=== PATIENT | female | born 1965 | race Caucasian/White ===

== ENCOUNTER 2020-06-20 10:19 | Emergency (ER) | payer OTHER, SELFPAY ==
--- NOTE | 2020-06-20 10:31 | ED.EXTPRO ---
HPI - Extremity Problem General Chief complaint: Extremity Injury, Lower Stated complaint: KNEE INJURY Time Seen by Provider: 06/20/20 10:31 Source: patient Mode of arrival: ambulatory Limitations: no limitations History of Present Illness HPI Narrative: 55 y/o female presents with left knee pain after she twisted it while walking yesterday. She had immediate pain and has only been able to walk with a limp. She woke up with some swelling this morning. Pain is not better with Aleve. She denies history of similar problems. MD Complaint: extremity pain and extremity swelling Onset (ago): day(s) (1) Pain Consistency: constant Location: left Severity scale (1-10): 7 Quality: aching and constant Radiation: none Relieving factors: immobilization Exacerbating factors: range of motion, weight bearing, walking and palpation Associated symptoms: denies other symptoms Related Data Previous Rx's Medication Instructions Recorded hydrocodone-acetaminophen [[place]] 1 tab PO Q8H PRN #6 tab 06/20/20 ibuprofen 600 mg PO Q8H PRN #20 tab 06/20/20 Allergies Allergy/AdvReac Type Severity Reaction Status Date / Time No Known Allergies Allergy Verified 06/20/20 10:51 Review of Systems Review of Systems: Constitutional: No Fever, No Chills Cardiovascular: No Chest Pain, No SOB Respiratory: No Cough, No Sputum Gastrointestinal: No Nausea, No Vomiting, No Diarrhea, No abdominal Pain Musculoskeletal: + joint pain, No Myalgias Skin: No Skin Lesions, No rash Neuro: No Weakness, No Numbness, No Dizziness, No Headache PMFSH Past Medical History Attestation statement: The following information was validated with the patient. Medical History No known health problems Social History Social History Advance Directives: No Advance Directives Information Provided: No Physical Exam Vital Signs: Vital Signs: Last Vital Signs Temp 97.4 F 06/20/20 10:48 Pulse 90 06/20/20 10:48 Resp 17 06/20/20 10:48 BP 190/79 H 06/20/20 10:48 Pulse Ox 95 06/20/20 10:48 Body Mass Index 29.2 Appearance: Alert. Oriented X3. No acute distress. HEENT: normal inspection CVS: Normal heart rate and rhythm. Pulses normal. Respiratory: No respiratory distress. Skin: Skin warm and dry. Normal skin color. Normal skin turgor. No rashes. Extremities: normal right knee. left knee with suprapatellar swelling and tenderness, limited flexion due to pain, no joint laxity. NV intact distally. Neuro: Oriented X 3. No motor deficit. No sensory deficit. Course Course Course Narrative: 55 y/o female here with left knee pain after twisting injury. Concern for ligamentous injury, XR shows possible small effusion. Will place in EVELIA wrap, WBAT, NSAID, short coarse of pain meds and refer to ortho. Shari agrees with plan. Critical Care Time Critical Care Time Critical Care Time: No Discharge Plan Discharge Clinical Impression: Effusion of knee joint, left Knee sprain Qualifiers: Encounter type: initial encounter Involved ligament of knee: unspecified ligament Laterality: left Qualified Code(s): S83.92XA - Sprain of unspecified site of left knee, initial encounter Patient Disposition: Home, Self-Care Instructions: Knee Sprain (ED), Swollen Knee Joint (ED) Additional Instructions: Your knee x-ray today did not show any fracutres or bony abnormalities. There is a small amount of fluid in the knee. Use EVELIA wrap for compression to help with the swelling. Elevate you leg when possible. Use ice several times per day. You may bear weight as tolerated. Recommend follow up with Orthopedics next week for further evaluation. Prescriptions: New ibuprofen 600 mg tablet 600 mg PO Q8H PRN (Reason: pain) Qty: 20 RF: 0 hydrocodone-acetaminophen [[place]] 5-325 mg tablet 1 tab PO Q8H PRN (Reason: pain) Qty: 6 RF: 0
[2020-06-20 10:48] VITALS: BP 190/79; PULSE 90; RESP 17; TEMP 36.3; O2SAT 95; BMI 29.2
--- NOTE | 2020-06-20 10:55 | XR_ITS ---
EXAMINATION: XR KNEE, LEFT CLINICAL INFORMATION: Pain after twisting injury. COMPARISON: No direct priors. Correlation made with contralateral right knee radiographs from 11/18/2013. TECHNIQUE: Four views of the left knee. FINDINGS: There is no evidence of acute fracture. Alignment is anatomic. Joint spaces are relatively well maintained. Mild osteophytosis noted in the patella. There may be a small joint effusion. No focal soft tissue swelling is appreciated. There are venous varicosities within the leg. XR/XR knee LT 4V IMPRESSION: No evidence of acute fracture or malalignment. Possible small joint effusion.
[2020-06-20 12:15] VITALS: BP 160/91
== END 2020-06-20 12:16 | disposition home or self-care (01) ==
PROVIDERS: Emergency Provider Internal Medicine
DX: S83.92XA Sprain of unspecified site of left knee, initial encounter (principal); M25.562 Pain in left knee; M25.462 Effusion, left knee; X50.1XXA Overexertion from prolonged static or awkward postures, initial encounter; Y93.01 Activity, walking, marching and hiking; Y92.9 Unspecified place or not applicable; Y99.9 Unspecified external cause status; Z79.899 Other long term (current) drug therapy
CPT/HCPCS: 73564; 99283

== ENCOUNTER → 2020-08-06 09:19 | Outpatient (BNVA) | payer MEDICAID, SELFPAY | PROVIDERS: Visit Provider Physician Assistant | DX: M17.10 Unilateral primary osteoarthritis, unspecified knee (principal) | CPT/HCPCS: 99202 ==

== ENCOUNTER 2020-12-07 10:05 | Outpatient (REF) | payer MEDICAID, SELFPAY ==
--- NOTE | ~2020-12-07 | MR_ITS ---
EXAMINATION: MR KNEE WITHOUT CONTRAST, LEFT CLINICAL INFORMATION: Left knee pain. COMPARISON: Radiographs 06/20/2020. TECHNIQUE: MRI of the knee without contrast was performed using routine sequences on a high-field scanner. FINDINGS: MENISCI: Medial Meniscus: Complex tearing of the meniscal body with probable full-thickness radial component. Lateral Meniscus: Ill-defined degenerative tearing of the anterior horn extending from the meniscal root. Probable inner margin tear of the posterior horn near the meniscal root as well. LIGAMENTS: Cruciate: Mucoid degeneration of the ACL which is ill-defined distally, possibly chronic partial tearing. The posterior cruciate ligament appears intact. Collateral: Intact. EXTENSOR MECHANISM: Intact. ARTICULAR CARTILAGE/BONE: Patellofemoral Compartment: Cartilage thinning and irregularity with subchondral cysts of the lateral patellar facet. Cartilage irregularity extends along the median ridge of the patella, as well as the medial trochlea inferiorly. Small marginal osteophytes. Medial Compartment: Cartilage thinning and surface irregularity with areas of full-thickness loss involving the weightbearing femoral condyle and peripheral tibia. Small marginal osteophytes. Lateral Compartment: Small marginal osteophytes. JOINT FLUID AND BURSAE: Small joint effusion and Chin's cyst. There is a ganglion at the distal aspect of the tibiofibular joint. MR/MR knee LT wo con IMPRESSION: Complex tear of the medial meniscus body with a full-thickness radial component. Degeneration/ill-defined tearing at the root of the anterior horn of the lateral meniscus and small intermargin tear of the posterior horn. Mucoid degeneration of the ACL with ill-defined partial tearing distally. Moderate medial compartment and mild patellofemoral/lateral compartment osteoarthritis with a small joint effusion and Chin's cyst.
--- NOTE | ~2020-12-07 | MR_ITS ---
EXAMINATION: MR KNEE WITHOUT CONTRAST, RIGHT CLINICAL INFORMATION: Right knee pain. COMPARISON: Radiographs 11/18/2013 TECHNIQUE: MRI of the knee without contrast was performed using routine sequences on a high-field scanner. FINDINGS: MENISCI: Medial Meniscus: Chronic tearing and attritional wear of the posterior horn and irregular inner margin/undersurface tearing of the meniscal body. Lateral Meniscus: Chronic ill-defined complex tearing of the anterior horn at the meniscal root. LIGAMENTS: Cruciate: Mucoid degeneration and probable ill-defined chronic partial tearing of the ACL. The posterior cruciate ligament appears intact. Collateral: Intact EXTENSOR MECHANISM: Intact. ARTICULAR CARTILAGE/BONE: Patellofemoral Compartment: Cartilage thinning and surface irregularity throughout the superior aspect of the patella with small marginal osteophytes. Medial Compartment: Full-thickness cartilage loss throughout much of the anterior weightbearing medial femoral condyle and the anteromedial aspect of the tibia with prominent marginal osteophytes. Lateral Compartment: Mild cartilage irregularity along the weightbearing aspect, and the posterior nonweightbearing femoral condyle. Small marginal osteophytes. JOINT FLUID AND BURSAE: Small joint effusion and Chin's cyst. MR/MR knee RT wo con IMPRESSION: Chronic tearing and attritional wear of the posterior horn of the medial meniscus with inner margin truncation/irregularity and undersurface tearing of the meniscal body. Chronic ill-defined complex tearing at the anterior horn of the lateral meniscus. Mucoid degeneration and chronic partial tearing of the ACL distally. Severe medial compartment and [id number] patellofemoral/lateral compartment osteoarthritis. Small joint effusion and Chin's cyst.
== END 2020-12-07 10:06 | disposition home or self-care (01) ==
LOC: HO.MRI 10:05
PROVIDERS: Visit Provider Registered Nurse
DX: M25.561 Pain in right knee (principal); M25.562 Pain in left knee
CPT/HCPCS: 73721

== ENCOUNTER 2021-03-08 16:20 | Outpatient (REF) | payer MEDICAID, SELFPAY ==
--- NOTE | ~2021-03-08 | MM_ITS ---
EXAMINATION: MM SCREENING DIGITAL BREAST TOMOSYNTHESIS, BILATERAL CLINICAL INFORMATION: Screening. Asymptomatic. Age 55. No prior breast imaging. Family history breast cancer, sister. The lifetime risk of breast cancer based on the Tyrer-Cuzick Model is 11%. COMPARISON: None (current study represents initial baseline exam). TECHNIQUE: Digital breast tomosynthesis is performed in both the craniocaudal and mediolateral oblique views along with computer-aided detection (CAD). Synthesized 2D images are generated from the tomosynthesis. FINDINGS: There are scattered areas of fibroglandular density (ACR BI-RADS breast composition Category b). There is no significant mass or architectural abnormality. No abnormal calcifications. The axillary nodes are unremarkable. The skin contours are smooth. MM/MM tomosynthesis screening BI IMPRESSION: No mammographic evidence of malignancy. ASSESSMENT: BI-RADS 1: Negative RECOMMENDATION: Routine annual mammography screening. This patient's information was entered into a reminder system with a target due date for their next mammogram.
== END 2021-03-08 16:21 | disposition home or self-care (01) ==
LOC: HO.MAMMO 16:20
PROVIDERS: PCP Registered Nurse; Visit Provider Registered Nurse
DX: Z12.31 Encounter for screening mammogram for malignant neoplasm of breast (principal)
CPT/HCPCS: 77063; 77067

== ENCOUNTER 2021-03-25 17:00 | Outpatient (RCR) | payer MEDICAID, SELFPAY ==
--- NOTE | 2021-03-25 17:39 | MHC.PT.DC ---
[facility] [place] [facility] [place] Office [place] Office [address] Rosalia Oliver [address] [facility] [phone] F: [phone] F: [phone] F: [phone] F: [phone] Physical Therapy Discharge Report Diagnosis: EVE KNEE OA Date of Surgery: Date of Evaluation: 02/17/21 Date of Discharge: 03/25/21 Treatments to Date: 5 Cancellations to Date: 0 No Shows to Date: 0 Discharge Status: Improved Function Independent with HEP Discharge Summary: The patient has been consistently reporting no pain and less frequent clicking of the knees. She is independent with her home exercise program including bilateral lower extremity strengthening and stretching. She is discharged from this physical therapy plan of care. Electronically signed by: Kayleigh Vazquez PT, DPT Please sign and return to therapist. Thank you for your referral.
== END 2021-03-25 17:42 | disposition home or self-care (01) ==
LOC: HO.PT 17:00
PROVIDERS: PCP Registered Nurse; Visit Provider Physician Assistant
DX: M17.0 Bilateral primary osteoarthritis of knee (principal)
CPT/HCPCS: 97110; 97150; 97162

== ENCOUNTER 2021-09-01 12:25 | Emergency (ER) | payer MEDICAID, SELFPAY ==
--- NOTE | ~2021-09-01 | XR_ITS ---
EXAMINATION: XR LUMBOSACRAL SPINE CLINICAL INFORMATION: Low back pain. No injury. COMPARISON: None TECHNIQUE: Three views of the lumbosacral spine. FINDINGS: There are 5 nonrib bearing lumbar vertebra. No acute fracture, spondylolisthesis, or spondylolysis is identified. Disc spaces are maintained. Pedicles appear intact. No significant sacroiliac joint abnormality is seen. XR/XR lumbar spine 2-3V IMPRESSION: No significant lumbar spine abnormality appreciated.
[2021-09-01 12:31] VITALS: BP 169/89; PULSE 100; RESP 19; TEMP 36.6; O2SAT 98; BMI 28.3
--- NOTE | 2021-09-01 16:07 | ED.BACK ---
HPI - Back Pain/Injury General Chief Complaint: Back Pain/Injury Stated Complaint: back pain Time Seen by Provider: 09/01/21 15:55 Source: patient Mode of arrival: ambulatory Limitations: no limitations History of Present Illness HPI Narrative: 56 yo female healthy here here with reports of low back pain for the last 3-4 days. Patient denies any injury or trauma. 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 Today while working she felt pain that was severe enough that required her to leave her job in come here to the emergency department. There is no radiation of pain. No numbness or tingling in the extremities. No bowel or bladder incontinence. No numbness or tingling of the extremities. No fevers or chills. Patient taking Motrin with continued pain Related Data Home Medications Medication Instructions Recorded Confirmed ascorbic acid (vitamin C) PO 08/06/20 Previous Rx's Medication Instructions Recorded cyclobenzaprine 10 mg tablet 10 mg PO TID PRN #10 tab 09/01/21 lidocaine 5 % topical patch 1 patch TOPICAL DAILY #15 ea 09/01/21 (Lidoderm) naproxen 500 mg tablet 500 mg PO BID PRN #20 tab 09/01/21 Allergies Allergy/AdvReac Type Severity Reaction Status Date / Time No Known Allergies Allergy Verified 06/20/20 10:51 Review of Systems Review of Systems: Yes all other systems are reviewed and are negative Constitutional: Constitutional: Reports no additional constitutional complaints, Denies body ache(s), Denies chills, Denies fever(s), Denies headache(s) and Denies weakness Eyes: Eyes: Reports no additional eye complaints and Denies change in vision ENT: Reports system reviewed and no additional complaints, except as documented, Denies dizziness, Denies headache(s), Denies nasal congestion, Denies nasal discharge and Denies neck pain Cardiovascular: Cardiovascular: Reports no additional cardiovascular complaints, Denies chest pain, Denies leg edema and Denies dyspnea Respiratory: Respiratory: Reports no additional respiratory complaints, Denies cough and Denies dyspnea Gastrointestinal: Gastrointestinal: Reports no additional gastrointestinal complaints, Denies abdominal pain, Denies diarrhea, Denies nausea and Denies vomiting Genitourinary: Genitourinary: Reports no additional female genitourinary complaints and Denies urinary incontinence Musculoskeletal: Musculoskeletal: Reports no additional musculoskeletal complaints, Reports back pain, Denies arthralgias, Denies joint swelling, Denies neck pain, Denies numbness and Denies tingling Integumentary/Breasts: Skin/Breast: Reports system reviewed and no additional complaints, except as docu and Denies rash Neurologic: Reports system reviewed and no additional complaints, except as documented, Denies Abnormal speech present, Denies dizziness, Denies headache(s), Denies numbness, Denies tingling and Denies weakness PMFSH Past Medical History Attestation statement: The following information was validated with the patient. Source: old records reviewed and nursing notes reviewed Medical History No known health problems Social History Social History Years Smoked: quit smokinig about a year ago, smoked whole life Advance Directives: No Advance Directives Information Provided: No Patient : No Current occupational status: employed Current occupation: Retail - Right handed Physical Exam Vital Signs: Vital Signs: Last Vital Signs Temp 98 F 09/01/21 12:31 Pulse 100 09/01/21 12:31 Resp 19 09/01/21 12:31 BP 169/89 H 09/01/21 12:31 Pulse Ox 98 09/01/21 12:31 BMI result Body Mass Index 28.3 Const: General: cooperative, healthy appearing, comfortable and no acute distress Orientation/consciousness: patient oriented x3 Limitations: no limitations HENMT: Head: Yes normal to inspection Ears: hearing grossly normal bilaterally General nose exam: Normal external nose present Face and sinus: Yes normal facial exam Mouth: Normal oral and palatal mucosa present Throat: Yes posterior oropharynx normal Eyes: General: appearance normal, both eyes and all related structures Pupils: Equal, round and reactive pupils present Neck: Neck: Yes normal visual inspection Chest: Chest palpation & inspection: normal inspection of the chest Resp: Effort & Inspection: normal respiratory effort Auscultation: clear to auscultation bilaterally Cardio: Rate: regular rate Rhythm: regular rhythm Peripheral pulses: Peripheral pulses 2+ throughout GI: Inspection: Yes normal to inspection Palpation (GI): Soft to palpation and nontender Auscultation: normal bowel sounds Back/Spine/Pelvis: Other: Lumbar midline tenderness with no step-offs or deformities. Pain is worsened with straight leg raise bilaterally Thoracic/Lumbar Spine: thoracic and lumbar spine normal to inspection Skin: General skin exam: no rashes or lesions noted Neuro: General: patient oriented x3, no focal motor deficits and normal sensation to monofilament Cranial nerves: Yes CN's II-XII intact bilaterally, Yes Equal, round and reactive pupils present, Yes Bilaterally intact EOM present, Yes Nystagmus not present, Yes Normal facial strength present and Yes Midline tongue present Cognition (Neuro): normal cognition Speech: No Abnormal speech present Gait exam (Neuro): Normal gait present Motor exam (neuro): 5/5 motor strength present throughout Sensory Exam: Normal double simultaneous stimulation for sensation Deep tendon reflexes (DTR's): Right patellar reflex intensity grade: 2+ and Left patellar reflex intensity grade: 2+ Extrem: General: Yes normal to inspection Course Course Course Narrative: 56-year-old female here with reports of 3 days of low back pain with no known injury or trauma. No neurological deficits or red flag symptoms. Patient does have midline lumbar tenderness so will check x-rays. Will also provide analgesia and reassess 1630-x-ray show no bony abnormality. Likely lumbar strain. Will discharge patient with NSAIDs, muscle relaxant and medicated patch. We discussed avoiding any heavy lifting or bending and a follow-up with her primary care doctor in 1 week for persistent symptoms. We also reviewed worrisome signs and symptoms of when to return to the emergency department. Comfortable discharge home. MDM - Back Pain/Injury MDM Narrative Medical decision making narrative: Less likely epidural abscess with no fever reported, no neurological deficits, no history of immunocompromise state or history of IV drug abuse. Less likely cauda equina with no reports of incontinence or saddle anesthesia Medical Records Attestation: I reviewed the patient's medical records. Lab Data Attestation: I reviewed the patient's lab results. Imaging Data lumbar x-ray: Attestation: I personally reviewed and interpreted this imaging study as follows: Radiologist's impression: FINDINGS: There are 5 nonrib bearing lumbar vertebra. No acute fracture, spondylolisthesis, or spondylolysis is identified. Disc spaces are maintained. Pedicles appear intact. No significant sacroiliac joint abnormality is seen. XR/XR lumbar spine 2-3V IMPRESSION: No significant lumbar spine abnormality appreciated. Discharge Plan Discharge Clinical Impression: Strain of lumbar region Patient Disposition: Home, Self-Care Instructions: Low Back Strain (ED), Lower Back Exercises (ED) Additional Instructions: Heat or ice Gentle stretching No heavy lifting or bending Follow-up with primary care doctor in 1 week for persistent symptoms Return for numbness in the groin, incontinence, fever Prescriptions: New naproxen 500 mg tablet 500 mg PO BID PRN (Reason: pain) Qty: 20 0RF cyclobenzaprine 10 mg tablet 10 mg PO TID PRN (Reason: muscle spasm) Qty: 10 0RF lidocaine [Lidoderm] 5 % adhesive patch,medicated 1 patch topical DAILY Qty: 15 0RF Rx Instructions: leave on most painful area for up to 12 hrs Referrals: Gracie Macias, CHIEF INFORMATION SECURITY OFFICER [Primary Care Provider] - 1 week (for persistent symptoms ) Stand Alone Forms: Work/School Release Interventions: ED Discharge Assessment Last Done: 09/01/21 16:46 Discharge Date/Time: 09/01/21 16:46
[2021-09-01] MEDS: Ketorolac Tromethamine 60 MG/2 ML VIAL IM (16:42)
== END 2021-09-01 16:46 | disposition home or self-care (01) ==
PROVIDERS: Emergency Provider Emergency Medicine; PCP Registered Nurse
DX: S39.012A Strain of muscle, fascia and tendon of lower back, initial encounter (principal); X50.1XXA Overexertion from prolonged static or awkward postures, initial encounter; Y93.89 Activity, other specified; Y92.9 Unspecified place or not applicable; Y99.9 Unspecified external cause status
CPT/HCPCS: 72100; 96372; 99284; J1885

== ENCOUNTER 2022-03-29 15:24 | Outpatient (REF) | payer MEDICAID, SELFPAY ==
--- NOTE | 2022-03-29 | PFT_ITS ---
FLOWS: FEV1 55% of predicted at 1.39 L. FVC 71% of predicted at 2.29 L. FEV1 to FVC ratio of 0.61. Positive bronchodilator response. LUNG VOLUMES: Total lung capacity 94% of predicted at 4.65 L. Residual volume 133% of predicted at 2.54 L. Slow vital capacity 70% of predicted at 2.10 L. Expiratory reserve volume 29% of predicted at 0.25 L. Diffusion capacity is normal. IMPRESSION: Moderate to severe obstructive ventilatory defect with positive bronchodilator response. Increased residual volume suggests air trapping. Decreased expiratory reserve volume suggests extrathoracic restriction likely secondary to abdominal obesity. MD ASHANTI [place]/MODL / [id number]
== END 2022-03-29 15:25 | disposition home or self-care (01) ==
LOC: HO.RESP 15:24
PROVIDERS: PCP Registered Nurse Community Health; Visit Provider Registered Nurse Community Health
DX: J45.20 Mild intermittent asthma, uncomplicated (principal)
CPT/HCPCS: 94060; 94727; 94729

== ENCOUNTER 2022-11-30 05:38 | Inpatient (IN) | payer MEDICAID, SELFPAY ==
[2022-11-30] VITALS (11 sets, daily range): BP systolic 104–135; BP diastolic 50–71; PULSE 85–136; RESP 16–27; TEMP 37.1–40.3; O2SAT 90–96; BMI 33.0
--- NOTE | ~2022-11-30 | CT_ITS ---
EXAMINATION: CT ABDOMEN AND PELVIS WITH CONTRAST CLINICAL INFORMATION: Abdominal pain. Nausea. Vomiting. COMPARISON: None available. TECHNIQUE: Multidetector volumetric images were obtained from the superior aspect of the liver through the pubic symphysis following administration 85 mL of Omnipaque 350 intravenous contrast. Sagittal and coronal reformatted images were obtained on the technologist's workstation. Oral contrast: No This CT examination was performed using dose optimization techniques as appropriate, variously including the following: *Automated exposure control *Adjustment of mA and/or kV according to patient size (this includes techniques or standardized protocols for targeted exams where dose is matched to indication/reason for exam; i.e. extremities or head) *Use of iterative reconstruction technique DLP: 556.00 mGy-cm FINDINGS: LUNG BASES: Mild respiratory motion artifacts are present at the lung bases. No significant abnormality is noted. No pleural or pericardial effusion. LIVER, GALLBLADDER, AND BILIARY TREE: The liver is normal in size, shape, and attenuation. No focal hepatic lesion or biliary ductal dilatation is present. The gallbladder is mildly contracted however otherwise unremarkable without evidence of radiopaque stones, wall thickening or obvious pericholecystic inflammatory changes. PANCREAS: No focal pancreatic mass. Small calcification noted in the pancreatic head (series 2 image 26), may represent vascular calcification. No peripancreatic stranding or fluid. No pancreatic ductal dilatation. SPLEEN: Unremarkable. ADRENAL GLANDS: Unremarkable. KIDNEYS AND URETERS: The kidneys are normal in size and shape. Question subtle finding of delayed left nephrogram with subtle left perinephric and periureteric stranding. No evidence of left hydronephrosis. Left ureter is a slightly prominent in size demonstrating mild peripheral fat stranding and mural enhancement. No radiopaque left ureteric calculi are seen. The right kidney is unremarkable in appearance except for a 0.7 cm low-attenuation in the mid kidney which is too small to characterize accurately however statistically likely represents a cyst. No evidence of radiopaque calculi in the right kidney and right ureter. No right hydroureteronephrosis or right perinephric or periureteric stranding. BLADDER: Underdistended and therefore not optimally evaluated. No radiopaque calculi are noted. GASTROINTESTINAL TRACT: No abnormal dilatation of the stomach or small bowel is noted. The colon is normal in caliber. No evidence of colonic wall thickening or pericolonic fat stranding. Appendix is normal. ABDOMINAL WALL: No significant hernia is appreciated. LYMPH NODES: No evidence of pathologically enlarged lymph nodes. VASCULAR: The aortoiliac vessels are normal in caliber. Scattered calcific atherosclerosis of the aortoiliac vessels. PELVIC VISCERA: Unremarkable. OSSEOUS STRUCTURES: No evidence of acute or suspicious osseous lesions. Changes of osteitis pubis are seen. Vacuum phenomenon is noted in the bilateral sacroiliac joints. Minimal lumbar spondylosis. CT/CT abdomen pelvis w IV con IMPRESSION: 1. Subtle finding of delayed left nephrogram with subtle left perinephric and periureteric stranding. Left ureter is slightly prominent in size with mild mural enhancement. No evidence of left hydronephrosis. No evidence of radiopaque urinary tract calculi. The findings are nonspecific, however, may be seen in the setting of urinary tract infection on recent passage of a calculus. Recommend clinical correlation and correlation with urinalysis. 2. No evidence of abnormal bowel dilatation or bowel obstruction. 3. Normal appendix. 4. A 0.7 cm low-attenuation right renal lesion is too small to characterize accurately however statistically likely represents a cyst. Fleischner guidelines were followed.
--- NOTE | ~2022-11-30 | XR_ITS ---
EXAMINATION: XR CHEST CLINICAL INFORMATION: Tachycardia COMPARISON: None available. TECHNIQUE: Frontal view of the chest was obtained. FINDINGS: The lungs appear hyperinflated suggesting underlying COPD. Questionable central peribronchial thickening. No focal consolidation is seen. No evidence of pneumothorax, pleural effusion, or pulmonary edema. The cardiomediastinal contour is unremarkable. No acute osseous findings are seen. XR/XR chest 1V IMPRESSION: Hyperinflated lungs suggesting COPD. Questionable central peribronchial thickening which may reflect airways disease.
--- NOTE | 2022-11-30 05:51 | ECG_ITS ---
Test Reason : SOB Blood Pressure : / mmHG Vent. Rate : 132 BPM Atrial Rate : 132 BPM P-R Int : 144 ms QRS Dur : 114 ms QT Int : 302 ms P-R-T Axes : 058 079 053 degrees QTc Int : 447 ms Sinus tachycardia Possible Left atrial enlargement Minimal voltage criteria for LVH, may be normal variant ( [place] product ) Borderline ECG No previous ECGs available Referred By: Generic ED Physician Electronically Signed By:HUNTER ARZOLA
[2022-11-30 06:09] LABS: Basophils Percent Auto 0.3 % (0-2); Eosinophils Percent Auto 0.2 % (0-4); Hematocrit 35.5 % (37.0-47.0); Hemoglobin 11.8 g/dl (12.0-16.0); Imm Gran Abs Auto 0.08 X10*3/uL (0.00-0.03); Imm Gran Pct Auto 0.6 % (0.0-0.4); Lymphocytes Absolute Auto 0.6 X10*3/uL (1.2-4.9); Lymphocytes Percent Auto 4.4 % (20-40); MANUAL DIFF FLAG SCAN; Mean Corpuscular HGB Conc 33.2 g/dl (31.0-35.0); Mean Corpuscular Hemoglobin 29.9 pg (27.0-33.0); Mean Corpuscular Volume 89.9 fL (80.0-98.0); Mean Platelet Volume 9.6 fL (9.4-12.3); Monocytes Absolute Auto 0.3 X10*3/uL (0.1-1.2); Monocytes Percent Auto 2.1 % (2-11); Neutrophils Absolute Auto 12.1 x10*3/uL (2.0-8.3); Neutrophils Percent Auto 92.4 % (45-73); Platelet Count 211 X10*3/uL (160-400); Red Blood Count 3.95 X10*6/uL (4.20-5.50); Red Cell Distribution Width 12.8 % (11.0-16.0); SCAN SMEAR FLAG 1; White Blood Count 13.1 X10*3/uL (4.8-10.8)
[2022-11-30] MEDS: 0.9 % Sodium Chloride 1,000 ML 999 ML IV (06:11)
--- NOTE | 2022-11-30 06:17 | PC.NURSE ---
dr miles made aware of rectal temp of 104.6. sepsis protocol initiated @ 0620. 2nd iv line placed. in R hand. bladder scan performed. 189ml present in bladder. clarita GAINES made aware
[2022-11-30 06:27] LABS: SLIDE REVIEW VERIFIED
[2022-11-30 06:28] LABS: B Type Natriuretic Peptide 14 pg/mL (<100)
[2022-11-30 06:31] LABS: Alanine Aminotransferase 22 U/L (0-31); Albumin Level 4.3 g/dL (3.5-5.0); Alkaline Phosphatase 100 U/L (39-117); Anion Gap 15 (12-20); Aspartate Amino Transferase 24 U/L (5-31); Bilirubin Direct 0.3 mg/dL (0.0-0.5); Bilirubin Total 0.9 mg/dL (0.0-1.0); Blood Urea Nitrogen 14 mg/dL (9-16); Calcium 9.6 mg/dL (8.4-10.2); Carbon Dioxide 29 mmol/L (22-29); Chloride 99 mmol/L (96-108); Creatinine Clr Calc Pharmacy 75.1; Estimated Glomerular Filt Rate > 60; Glucose Random 156 mg/dL (60-115); Lipase 88 U/L (8-78); Potassium 2.8 mmol/L (3.3-5.1); Sodium 140 mmol/L (135-145); Total Protein 7.8 g/dL (6.5-8.0); Troponin-I High Sensitivity 63.4 ng/L (<3.5-17.0)
[2022-11-30] MEDS: Piperacillin Sodium/Tazobactam 3.375 GM in 0.9 % Sodium Chloride 50 ML IV (06:31)
--- NOTE | 2022-11-30 06:31 | ED.GENADULT ---
HPI - General Adult General Chief complaint: Abdominal Pain Stated complaint: n/v/d Time Seen by Provider: 11/30/22 06:28 Source: patient and EMS Mode of arrival: EMS Limitations: no limitations History of Present Illness HPI narrative: Patient is a 57 year old assigned female at with a history of asthma and HTN presenting to the emergency department today with a fever, nausea, vomiting, increased urinary frequency and pain with urination. Patient states that over the last few days she has felt generally unwell with fevers, nausea, vomiting, increased urinary frequency and pain with urination. Patient states that she is short of breath at baseline and has no changes in that aspect. Patient denies any dizziness, lightheadedness, abdominal pain, chills, blurry vision, double vision, loss of vision, chest pain, difficulty breathing, shortness of breath, back pain, night sweats, increased urinary urgency, blood in her urine or stool, syncope or a near syncopal episode, recent trauma or falls, bowel incontinence, bladder incontinence, bowel retention, bladder retention, or any other complaints at this time. Onset (ago): day(s) Severity: mild Severity scale (1-10): 3 Relieving factors: none Exacerbating factors: none Associated symptoms: nausea/vomiting Treatments prior to arrival: none Related Data Home Medications Medication Instructions Recorded Confirmed ascorbic acid (vitamin C) PO 08/06/20 albuterol sulfate 90 mcg/actuation 2 puff inhalation Q8H PRN wheezing 11/30/22 aerosol inhaler (Ventolin HFA) amlodipine 10 mg tablet 10 mg PO QAM 11/30/22 chlorthalidone 25 mg tablet 12.5 mg PO QAM 11/30/22 tiotropium bromide 2.5 2 puff inhalation DAILY 11/30/22 11/30/22 mcg/actuation mist for inhalation (Spiriva Respimat) Previous Rx's Medication Instructions Recorded cyclobenzaprine 10 mg tablet 10 mg PO TID PRN muscle spasm #10 09/01/21 tabs lidocaine 5 % topical patch 1 patch topical DAILY #15 ea 09/01/21 (Lidoderm) naproxen 500 mg tablet 500 mg PO BID PRN pain #20 tabs 09/01/21 Allergies Allergy/AdvReac Type Severity Reaction Status Date / Time No Known Allergies Allergy Verified 06/20/20 10:51 Review of Systems Constitutional: Constitutional: Reports no additional constitutional complaints, Denies chills, Denies fever(s) and Denies night sweats Eyes: Eyes: Reports no additional eye complaints, Denies blurry vision, Denies change in vision, Denies diplopia, Denies eye discharge, Denies loss of vision and Denies eye pain ENT: Denies dizziness Cardiovascular: Cardiovascular: Reports no additional cardiovascular complaints, Denies chest pain, Denies lightheadedness, Denies Loss of Consciousness and Denies dyspnea Respiratory: Respiratory: Reports no additional respiratory complaints and Denies dyspnea Gastrointestinal: Gastrointestinal: Reports no additional gastrointestinal complaints, Denies abdominal pain, Denies melena, Denies hematochezia, Denies change in bowel habits, Denies change in stool character, Reports nausea and Reports vomiting Genitourinary: Genitourinary: Denies hematuria, Denies urinary frequency, Reports dysuria, Denies urinary incontinence, Denies urinary hesitancy and Denies urinary urgency Comments: increased urinary frequency Musculoskeletal: Musculoskeletal: Reports no additional musculoskeletal complaints, Denies numbness and Denies tingling Neurologic: Denies dizziness, Denies loss of vision, Denies numbness and Denies tingling Psychiatric: Psychiatric: Reports no additional psychiatric complaints Endocrine: Endocrine: Reports no additional endocrine complaints Hematologic/Lymphatic: Hematologic/Lymphatic: Reports no additional hematologic/lymphatic complaints Allergic/Immunologic: Allergic/Immunologic: Reports no additional allergic/immunologic complaints [facility] Past Medical History Attestation statement: The following information was validated with the patient. Source: old records reviewed and nursing notes reviewed Medical History No known health problems Social History Social History Alcohol intake: never Years Smoked: quit smokinig about a year ago, smoked whole life Smoked in Last 30 Days: No Advance Directives: No Advance Directives Information Provided: No Patient : No Current occupational status: employed Current occupation: Retail - Right handed Physical Exam ED Vital Signs: Vital Signs - 24 hr 11/30/22 05:43 11/30/22 06:17 11/30/22 07:22 Temperature 99.2 F 104.6 F H 99.2 F Pulse Rate 136 H 123 H 115 H Respiratory Rate 27 H 19 20 Blood Pressure 104/62 116/66 124/61 Pulse Oximetry 93 93 92 Oxygen Delivery Method Room Air Room Air Room Air 11/30/22 08:15 Temperature Pulse Rate 107 H Respiratory Rate 16 Blood Pressure Pulse Oximetry Oxygen Delivery Method BMI result Body Mass Index 33.0 Const General: cooperative, no acute distress, alert and awake Nutritional Appearance: well nourished Orientation/consciousness: patient oriented x3 Limitations: no limitations HENMT Head: Yes normal to inspection and Yes atraumatic Ears: hearing grossly normal bilaterally and external ears normal General nose exam: Normal external nose present, no nasal discharge noted and no epistaxis Face and sinus: Yes normal facial exam, No abrasion and No laceration Mouth: Normal oral and palatal mucosa present, no drooling and no muffled voice Eyes General: appearance normal, both eyes and all related structures Periorbital: periorbital findings normal Eyelids: Yes eyelids normal Conjunctivae: conjunctivae normal Pupils: Equal, round and reactive pupils present EOM: EOMs intact bilaterally Neck Neck: Yes normal visual inspection, Yes full ROM and Yes no lymphadenopathy Chest Chest palpation & inspection: normal inspection of the chest Resp Effort & Inspection: normal respiratory effort and able to speak in complete sentences Auscultation: wheezes scattered wheezes Cardio Rate: tachycardic Rhythm: regular rhythm GI Inspection: Yes normal to inspection Palpation (GI): Soft to palpation, not firm, nontender and no guarding General: Yes CVA tenderness bilateral Back/Spine/Pelvis Back: CVA tenderness Neuro General: patient oriented x3 and moves all extremities Cranial nerves: Yes Equal, round and reactive pupils present Cognition (Neuro): normal cognition Motor exam (neuro): 5/5 motor strength present throughout Sensory Exam: Normal double simultaneous stimulation for sensation Coordination: [id number] test normal Extrem General: Yes normal to inspection, Yes full ROM and Yes capillary refill normal Psych Appearance: grossly normal Mental Status: mental status grossly normal Affect: normal affect Attitude: cooperative Thought process: Normal thought process present Thought content: Normal thought content present Insight: Good insight present (Psych) Medications Administered Generic Name Dose Route Start Last Admin Trade Name Freq PRN Reason Stop Dose Admin Potassium Chloride 10 meq in 100 mls @ 100 mls/hr 11/30/22 08:45 11/30/22 08:38 Potassium Chloride/H20 IV 11/30/22 10:44 100 mls/hr Q1H TONY Administration Discontinued Medications Generic Name Dose Route Start Last Admin Trade Name Francine PRN Reason Stop Dose Admin Acetaminophen 975 mg 11/30/22 06:29 11/30/22 06:39 Acetaminophen 325 Mg Tablet PO 11/30/22 06:30 975 mg ONCE ONE Administration Albuterol Sulfate 2 puff 11/30/22 06:48 11/30/22 08:13 Albuterol Sulfate 90 Mcg 8 Gm Inhaler INHALE 11/30/22 06:49 2 puff ONCE ONE Administration Sodium Chloride 1,000 mls @ 999 mls/hr 11/30/22 05:52 11/30/22 06:11 Ns IV 11/30/22 06:52 999 mls/hr .Q1H1M ONE Administration Sodium Chloride 2,538 mls @ 2,538 mls/hr 11/30/22 06:19 11/30/22 06:25 Ns 30 ml/kg infuse over 1 hr (2538 ml) 11/30/22 07:18 2,538 mls/hr IV Administration .Q1H STA Piperacillin Sod/Tazobactam 50 mls @ 100 mls/hr 11/30/22 06:19 11/30/22 06:31 Sod 3.375 gm/ Sodium Chloride IV 11/30/22 06:48 100 mls/hr ONCE ONE Administration Iohexol 85 ml 11/30/22 07:37 11/30/22 07:37 Iohexol 350 Mg/Ml 100 Ml Infus..Btl IV 11/30/22 07:38 85 ml ONCE ONE Administration Potassium Chloride 20 meq 11/30/22 08:35 11/30/22 08:38 Potassium Chloride Packet 20 Meq Packet PO 11/30/22 08:36 20 meq ONCE ONE Administration Medical Decision Making Medical Decision Making [facility] Narrative: Patient is a 57 year old assigned female at with a history of asthma presenting to the emergency department today with nausea, vomiting, fever, and urinary symptoms. Patient's physical exam showed a febrile individual with tachycardia and CVA tenderness. Patient's blood work showed a decreased potassium, decreased magnesium, and elevated WBC count. Patient's initial trop was 63.4 with a repeat of 170. Spoke to cardiology who recommended medical admission and treatment of the infectious process as this seems to be a demand process. Patient's urine showed a probable infection. Patient's initial and repeat EKGs was unremarkable. Patient's chest x-ray showed no acute process. Patient's abdomen/pelvis CT showed evidence of pyelonephritis. I spoke to the hospitalist team who agreed to admission. I explained my physical exam findings as well as all test results to the patient and the patient's. I answered all questions asked by the patient. Patient received IV potassium, fluids, antibiotics, and PO potassium. Patient verbalized agreement and understanding with this treatment plan and admission. Differential Diagnosis Differential Diagnoses: The differential diagnosis associated with the presentation includes pyelonephritis, UTI Admission/Observation Consideration of admission/observation: Escalation of care including admission/observation considered Patient to be admitted for pyelonpehritis. Consult Healthcare Provider Management of the patient was discussed with: Hospitalist (agreed to admission) and Food Bagging Machine Operator (spoke to cardiology as noted in the MDM portion of this chart) Lab Data [facility] Lab Attestation statement: I reviewed the patient's lab results. 11/30/22 06:01 11/30/22 06:01 Labs: Lab Results 11/30/22 11/30/22 11/30/22 Range/Units 06:00 06:00 06:01 WBC 13.1 H (4.8-10.8) X10*3/uL RBC 3.95 L (4.20-5.50) X10*6/uL Hgb 11.8 L (12.0-16.0) g/dl Hct 35.5 L (37.0-47.0) % MCV 89.9 (80.0-98.0) fL MCH 29.9 (27.0-33.0) pg MCHC 33.2 (31.0-35.0) g/dl RDW 12.8 (11.0-16.0) % Plt Count 211 (160-400) X10*3/uL MPV 9.6 (9.4-12.3) fL Immature Gran % (Auto) 0.6 H (0.0-0.4) % Neut % (Auto) 92.4 H (45-73) % Lymph % (Auto) 4.4 L (20-40) % [place] % (Auto) 2.1 (2-11) % Eos % (Auto) 0.2 (0-4) % Baso % (Auto) 0.3 (0-2) % Lymph # (Auto) 0.6 L (1.2-4.9) X10*3/uL [place] # (Auto) 0.3 (0.1-1.2) X10*3/uL Eos # (Auto) 0.0 (0.0-0.4) X10*3/uL Baso # (Auto) 0.0 (0.0-0.2) X10*3/uL Abs Immat Gran (auto) 0.08 H (0.00-0.03) X10*3/uL Absolute Neuts (auto) 12.1 H (2.0-8.3) x10*3/uL Absolute Nucleated RBC 0.000 (0.0-0.012) X10*3/uL Nucleated RBC % (auto) 0.0 (0.0-0.2) /100WBC Smear Tech's Comments VERIFIED PT (10.0-13.1) SEC INR (0.9-1.1) APTT (26.0-36.4) SEC Sodium (135-145) mmol/L Potassium (3.3-5.1) mmol/L Chloride (96-108) mmol/L Carbon Dioxide (22-29) mmol/L Anion Gap (12-20) BUN (9-16) mg/dL Creatinine (0.5-1.4) mg/dL Estim Creat Clear Calc Estimated GFR Random Glucose (60-115) mg/dL Lactic Acid 2.0 (0.5-2.0) mmol/L Calcium (8.4-10.2) mg/dL Magnesium (1.6-2.6) mg/dL Total Bilirubin (0.0-1.0) mg/dL Direct Bilirubin (0.0-0.5) mg/dL AST (5-31) U/L ALT (0-31) U/L Alkaline Phosphatase (39-117) U/L Troponin I High Sens (<3.5-17.0) ng/L B-Natriuretic Peptide 14 (<100) pg/mL Total Protein (6.5-8.0) g/dL Albumin (3.5-5.0) g/dL Lipase (8-78) U/L Beta HCG, Quant mIU/mL Urine Color Urine Appearance Urine pH (5.0-9.0) Ur Specific Joice (1.005-1.025) Urine Protein (Neg-Trace) mg/dL Urine Glucose (UA) (Negative) mg/dL Urine Ketones (Negative) mg/dL Urine Blood (Negative) Urine Nitrite (Negative) Ur Leukocyte Esterase (Negative) Urine RBC (0-2) /HPF Urine WBC (0-5) /HPF Ur Squamous Epith Cells (0-2) /HPF Urine Bacteria (None Seen) Hyaline Casts (0-2) /LPF Influenza Type A (PCR) (Negative) Influenza Type B (PCR) (Negative) RSV RNA Qual (PCR) (Negative) SARS-CoV-2 RNA (RT-PCR) (Negative) 11/30/22 11/30/22 11/30/22 Range/Units 06:01 06:01 06:01 WBC (4.8-10.8) X10*3/uL RBC (4.20-5.50) X10*6/uL Hgb (12.0-16.0) g/dl Hct (37.0-47.0) % MCV (80.0-98.0) fL MCH (27.0-33.0) pg MCHC (31.0-35.0) g/dl RDW (11.0-16.0) % Plt Count (160-400) X10*3/uL MPV (9.4-12.3) fL Immature Gran % (Auto) (0.0-0.4) % Neut % (Auto) (45-73) % Lymph % (Auto) (20-40) % Dup[place] % (Auto) (2-11) % Eos % (Auto) (0-4) % Baso % (Auto) (0-2) % Lymph # (Auto) (1.2-4.9) X10*3/uL [place] # (Auto) (0.1-1.2) X10*3/uL Eos # (Auto) (0.0-0.4) X10*3/uL Baso # (Auto) (0.0-0.2) X10*3/uL Abs Immat Gran (auto) (0.00-0.03) X10*3/uL Absolute Neuts (auto) (2.0-8.3) x10*3/uL Absolute Nucleated RBC (0.0-0.012) X10*3/uL Nucleated RBC % (auto) (0.0-0.2) /100WBC Smear Tech's Comments PT (10.0-13.1) SEC INR (0.9-1.1) APTT (26.0-36.4) SEC Sodium 140 (135-145) mmol/L Potassium 2.8 L (3.3-5.1) mmol/L Chloride 99 (96-108) mmol/L Carbon Dioxide 29 (22-29) mmol/L Anion Gap 15 (12-20) BUN 14 (9-16) mg/dL Creatinine 0.83 (0.5-1.4) mg/dL Estim Creat Clear Calc 75.1 Estimated GFR > 60 Random Glucose 156 H (60-115) mg/dL Lactic Acid (0.5-2.0) mmol/L Calcium 9.6 (8.4-10.2) mg/dL Magnesium 1.5 L (1.6-2.6) mg/dL Total Bilirubin 0.9 (0.0-1.0) mg/dL Direct Bilirubin 0.3 (0.0-0.5) mg/dL AST 24 (5-31) U/L ALT 22 (0-31) U/L Alkaline Phosphatase 100 (39-117) U/L Troponin I High Sens 63.4 H* (<3.5-17.0) ng/L B-Natriuretic Peptide (<100) pg/mL Total Protein 7.8 (6.5-8.0) g/dL Albumin 4.3 (3.5-5.0) g/dL Lipase 88 H (8-78) U/L Beta HCG, Quant < 2 mIU/mL Urine Color Urine Appearance Urine pH (5.0-9.0) Ur Specific Joice (1.005-1.025) Urine Protein (Neg-Trace) mg/dL Urine Glucose (UA) (Negative) mg/dL Urine Ketones (Negative) mg/dL Urine Blood (Negative) Urine Nitrite (Negative) Ur Leukocyte Esterase (Negative) Urine RBC (0-2) /HPF Urine WBC (0-5) /HPF Ur Squamous Epith Cells (0-2) /HPF Urine Bacteria (None Seen) Hyaline Casts (0-2) /LPF Influenza Type A (PCR) NEGATIVE (Negative) Influenza Type B (PCR) NEGATIVE (Negative) RSV RNA Qual (PCR) NEGATIVE (Negative) SARS-CoV-2 RNA (RT-PCR) NEGATIVE (Negative) 11/30/22 11/30/22 11/30/22 Range/Units 06:50 07:20 08:13 WBC (4.8-10.8) X10*3/uL RBC (4.20-5.50) X10*6/uL Hgb (12.0-16.0) g/dl Hct (37.0-47.0) % MCV (80.0-98.0) fL MCH (27.0-33.0) pg MCHC (31.0-35.0) g/dl RDW (11.0-16.0) % Plt Count (160-400) X10*3/uL MPV (9.4-12.3) fL Immature Gran % (Auto) (0.0-0.4) % Neut % (Auto) (45-73) % Lymph % (Auto) (20-40) % Dupage % (Auto) (2-11) % Eos % (Auto) (0-4) % Baso % (Auto) (0-2) % Lymph # (Auto) (1.2-4.9) X10*3/uL Dupage # (Auto) (0.1-1.2) X10*3/uL Eos # (Auto) (0.0-0.4) X10*3/uL Baso # (Auto) (0.0-0.2) X10*3/uL Abs Immat Gran (auto) (0.00-0.03) X10*3/uL Absolute Neuts (auto) (2.0-8.3) x10*3/uL Absolute Nucleated RBC (0.0-0.012) X10*3/uL Nucleated RBC % (auto) (0.0-0.2) /100WBC Smear Tech's Comments PT 12.5 (10.0-13.1) SEC INR 1.1 (0.9-1.1) APTT 24.3 L (26.0-36.4) SEC Sodium (135-145) mmol/L Potassium (3.3-5.1) mmol/L Chloride (96-108) mmol/L Carbon Dioxide (22-29) mmol/L Anion Gap (12-20) BUN (9-16) mg/dL Creatinine (0.5-1.4) mg/dL Estim Creat Clear Calc Estimated GFR Random Glucose (60-115) mg/dL Lactic Acid (0.5-2.0) mmol/L Calcium (8.4-10.2) mg/dL Magnesium (1.6-2.6) mg/dL Total Bilirubin (0.0-1.0) mg/dL Direct Bilirubin (0.0-0.5) mg/dL AST (5-31) U/L ALT (0-31) U/L Alkaline Phosphatase (39-117) U/L Troponin I High Sens 170.0 H* D (<3.5-17.0) ng/L B-Natriuretic Peptide (<100) pg/mL Total Protein (6.5-8.0) g/dL Albumin (3.5-5.0) g/dL Lipase (8-78) U/L Beta HCG, Quant mIU/mL Urine Color Dark Yellow Urine Appearance Clear Urine pH 6.0 (5.0-9.0) Ur Specific Joice 1.015 (1.005-1.025) Urine Protein 100 (2+) H (Neg-Trace) mg/dL Urine Glucose (UA) Negative (Negative) mg/dL Urine Ketones Negative (Negative) mg/dL Urine Blood Trace H (Negative) Urine Nitrite Positive H (Negative) Ur Leukocyte Esterase Moderate (2+) H (Negative) Urine RBC 3-5 H (0-2) /HPF Urine WBC >50 H (0-5) /HPF Ur Squamous Epith Cells 0-2 (0-2) /HPF Urine Bacteria None Seen (None Seen) Hyaline Casts 0-2 (0-2) /LPF Influenza Type A (PCR) (Negative) Influenza Type B (PCR) (Negative) RSV RNA Qual (PCR) (Negative) SARS-CoV-2 RNA (RT-PCR) (Negative) Independent Interpretation I performed an independent interpretation of an: EKG, Plain X-Ray and CT Scan Interpretation: Vent. Rate: 132 BPM ? ? Atrial Rate: 132 BPM P-R Int: 144 ms? QRS Dur: 114 ms QT Int: 302 ms ? ? ? P-R-T Axes: 058 079 053 degrees QTc Int: 447 ms ? Sinus tachycardia Possible Left atrial enlargement Minimal voltage criteria for LVH, may be normal variant ( [place] product ) Borderline ECG No previous ECGs available DD/ 0548 Vent. Rate: 103 BPM ? ? Atrial Rate: 103 BPM P-R Int: 142 ms? QRS Dur: 124 ms QT Int: 372 ms ? ? ? P-R-T Axes: 068 082 057 degrees QTc Int: 487 ms ? Sinus tachycardia Non-specific intra-ventricular conduction delay Borderline ECG When compared with ECG of 30-NOV-2022 05:48, No significant change was found DD/ 0850 My interpretation is in agreement with the radiologist's impression of this imaging study. EXAMINATION: XR CHEST CLINICAL INFORMATION: Tachycardia COMPARISON: None available. TECHNIQUE: Frontal view of the chest was obtained. FINDINGS: The lungs appear hyperinflated suggesting underlying COPD. Questionable central peribronchial thickening. No focal consolidation is seen. No evidence of pneumothorax, pleural effusion, or pulmonary edema. The cardiomediastinal contour is unremarkable. No acute osseous findings are seen. XR/XR chest 1V IMPRESSION: Hyperinflated lungs suggesting COPD. Questionable central peribronchial thickening which may reflect airways disease. Dictated By: Gui Leone MD Signed By: Electronically signed by Gui Leone MD 11/30/22 0658 EXAMINATION: CT ABDOMEN AND PELVIS WITH CONTRAST? CLINICAL INFORMATION: Abdominal pain. Nausea. Vomiting.? COMPARISON: None available. TECHNIQUE: Multidetector volumetric images were obtained from the superior aspect of the liver through the pubic symphysis following administration 85 mL of Omnipaque 350 intravenous contrast. Sagittal and coronal reformatted images were obtained on the technologist's workstation.? Oral contrast: No This CT examination was performed using dose optimization techniques as appropriate, variously including the following: *Automated exposure control *Adjustment of mA and/or kV according to patient size (this includes techniques or standardized protocols for targeted exams where dose is matched to indication/reason for exam; i.e. extremities or head) *Use of iterative reconstruction technique DLP: 556.00 mGy-cm FINDINGS: LUNG BASES: Mild respiratory motion artifacts are present at the lung bases. No significant abnormality is noted. No pleural or pericardial effusion. LIVER, GALLBLADDER, AND BILIARY TREE: The liver is normal in size, shape, and attenuation. No focal hepatic lesion or biliary ductal dilatation is present. The gallbladder is mildly contracted however otherwise unremarkable without evidence of radiopaque stones, wall thickening or obvious pericholecystic inflammatory changes.? PANCREAS: No focal pancreatic mass. Small calcification noted in the pancreatic head (series 2 image 26), may represent vascular calcification. No peripancreatic stranding or fluid. No pancreatic ductal dilatation.? SPLEEN: Unremarkable.? ADRENAL GLANDS: Unremarkable.? KIDNEYS AND URETERS: The kidneys are normal in size and shape. Question subtle finding of delayed left nephrogram with subtle left perinephric and periureteric stranding. No evidence of left hydronephrosis. Left ureter is a slightly prominent in size demonstrating mild peripheral fat stranding and mural enhancement. No radiopaque left ureteric calculi are seen. The right kidney is unremarkable in appearance except for a 0.7 cm low-attenuation in the mid kidney which is too small to characterize accurately however statistically likely represents a cyst. No evidence of radiopaque calculi in the right kidney and right ureter. No right hydroureteronephrosis or right perinephric or periureteric stranding. BLADDER: Underdistended and therefore not optimally evaluated. No radiopaque calculi are noted.? GASTROINTESTINAL TRACT: No abnormal dilatation of the stomach or small bowel is noted. The colon is normal in caliber. No evidence of colonic wall thickening or pericolonic fat stranding. Appendix is normal.? ABDOMINAL WALL: No significant hernia is appreciated.? LYMPH NODES: No evidence of pathologically enlarged lymph nodes. VASCULAR: The aortoiliac vessels are normal in caliber. Scattered calcific atherosclerosis of the aortoiliac vessels. PELVIC VISCERA: Unremarkable.? OSSEOUS STRUCTURES: No evidence of acute or suspicious osseous lesions. Changes of osteitis pubis are seen. Vacuum phenomenon is noted in the bilateral sacroiliac joints. Minimal lumbar spondylosis.? CT/CT abdomen pelvis w IV con IMPRESSION: 1.? Subtle finding of delayed left nephrogram with subtle left perinephric and periureteric stranding. Left ureter is slightly prominent in size with mild mural enhancement. No evidence of left hydronephrosis. No evidence of radiopaque urinary tract calculi. The findings are nonspecific, however, may be seen in the setting of urinary tract infection on recent passage of a calculus. Recommend clinical correlation and correlation with urinalysis. 2.? No evidence of abnormal bowel dilatation or bowel obstruction. 3.? Normal appendix. 4.? A 0.7 cm low-attenuation right renal lesion is too small to characterize accurately however statistically likely represents a cyst. ? Fleischner guidelines were followed. Dictated By: Dilan Vazquez MD Signed By: Electronically signed by Dilan Vazquez MD 11/30/22 0804 Independent Historian Clinical information obtained from an independent historian. History obtained from or confirmed by: EMS Critical Care Time Critical Care Time Critical Care Time: Yes Total Critical Care Time: 60 Attestation: I spent 60 minutes of Critical Care Time with this patient. This does not include time spent on separately reported billable procedures. Discharge Plan Discharge Clinical Impression: Hypomagnesemia, Acute hypokalemia, Pyelonephritis Patient Disposition: Admitted As Inpatient
[2022-11-30] MEDS: Acetaminophen 325 MG TABLET 975 MG PO (06:39)
[2022-11-30 07:00] LABS: INTERNATIONAL NORM RATIO 1.1 (0.9-1.1); Prothrombin Time 12.5 SEC (10.0-13.1)
[2022-11-30 07:00] LABS: Influenza A PCR NEGATIVE (Negative); Influenza B PCR NEGATIVE (Negative); Resp Syncy Virus RNA Qual PCR NEGATIVE (Negative); SARS COV2 PCR INHOUSE NEGATIVE (Negative)
[2022-11-30 07:03] LABS: Partial Thromboplastin Time 24.3 SEC (26.0-36.4)
--- NOTE | 2022-11-30 07:05 | PC.NURSE ---
this rn assumed care of pt @ 0543. iv line placed in L AC. pt tolerated well. dr miles made aware of pt status and vital signs. blood work and ekg obtained. pt medicated according to sep.
[2022-11-30 07:06] LABS: Magnesium 1.5 mg/dL (1.6-2.6)
[2022-11-30 07:10] LABS: HCG Quantitative < 2 mIU/mL
--- NOTE | 2022-11-30 07:23 | PC.NURSE ---
patient a&ox3, pt denying pain/discomfort, ambulated to bathroom with steady gait, ivf running per order, night monitor intact sinus tach on monitor. urine obtained, vss, pt to st scan, call manzano within reach, will continue to monitor.
[2022-11-30] MEDS: iohexoL 350 MG/ML 100 ML INFUS..BTL 85 ML IV (07:37)
[2022-11-30 07:42] LABS: Appearance Urine Clear; Color Urine Dark Yellow; Glucose Urine UA Negative (Negative); Leukocyte Esterase Urine Moderate (2+) (Negative); Nitrite Urine Positive (Negative); Specific Gravity - Urine 1.015 (1.005-1.025); UMIC TRIGGER UACC YES; Urine Blood Trace (Negative); Urine Ketones Negative (Negative); Urine Protein 100 (2+) mg/dL (Neg-Trace)
[2022-11-30 07:56] LABS: Bacteria Urine None Seen (None Seen); Hyaline Casts Urine 0-2 /LPF (0-2); Squamous Epithelial Cell Urine 0-2 /HPF (0-2); UACC Culture Trigger YES; WBC Urine >50 /HPF (0-5)
[2022-11-30] MEDS: Albuterol Sulfate 90 MCG 8 GM INHALER 2 PUFF INHALE (08:13)
--- NOTE | 2022-11-30 08:36 | PC.NURSE ---
patients fluids continue to run slowly
[2022-11-30] MEDS: Potassium Chloride Packet 20 MEQ PACKET PO (08:38)
[2022-11-30] MEDS: Potassium Chloride/H20 10 MEQ/100 ML PIGGYBACK 100 MEQ IV ×2 (08:38→10:13)
--- NOTE | 2022-11-30 08:47 | ECG_ITS ---
Test Reason : SOB Blood Pressure : / mmHG Vent. Rate : 103 BPM Atrial Rate : 103 BPM P-R Int : 142 ms QRS Dur : 124 ms QT Int : 372 ms P-R-T Axes : 068 082 057 degrees QTc Int : 487 ms Sinus tachycardia Non-specific intra-ventricular conduction delay Borderline ECG When compared with ECG of 30-NOV-2022 05:48, No significant change was found Referred By: Eva Dos Santos Electronically Signed By:HUNTER ARZOLA
--- NOTE | 2022-11-30 09:19 | PHA.MEDREC ---
Pharmacy Consult ? Medication Reconciliation Pharmacy has completed the medication reconciliation. Pt had medications at bedside
--- NOTE | 2022-11-30 09:51 | P.HPHOSP_ITS ---
History of Present Illness Date of Service: 11/30/22 Chief Complaint: fever 57F PMH COPD, HTN, obesity, presented with fever. patient reports feeling unwell about 5 days. has had severe left flank pain, associated with dysuria, fever, chills, lethargy. symptoms worsened so came to ED. denies chest pain, sob, previ ous similar episodes, no history of nephrolithiasis. in ED noted to have fever, tachycardia, positive UA, pernipehric stranding on CT. Review of Systems Review of Systems: Yes all other systems are reviewed and are negative [facility] Medical History (Updated 11/30/22 @ 09:54 by Omar Petty MD) COPD (chronic obstructive pulmonary disease) HTN (hypertension) Social History Alcohol intake: never Years Smoked: quit smokinig about a year ago, smoked whole life Smoked in Last 30 Days: No Advance Directives: No Advance Directives Information Provided: No Patient : No Current occupational status: employed Current occupation: [employer] - Right handed Spontly Allergies Allergy/AdvReac Type Severity Reaction Status Date / Time No Known Allergies Allergy Verified 06/20/20 10:51 Active Medications: Current Medications Albuterol Sulfate (Albuterol Sulfate 90 Mcg 8 Gm Inhaler) 2 puff INHALE Q8H PRN PRN Reason: wheezing Ascorbic Acid (Ascorbic Acid 500 Mg Tablet) 500 mg PO DAILY [facility] Potassium Chloride (Potassium Chloride/H20) 10 meq in 100 mls @ 100 mls/hr IV Q1H [facility] Stop: 11/30/22 10:44 Last Admin: 11/30/22 08:38 Dose: 100 mls/hr Magnesium Oxide (Magnesium Oxide 400 Mg Tablet) [facility] Multivitamins/Vitamin C (Multivitamin Tablet) 1 tab PO DAILY [facility] Pharmacy Consult (Consult Rx Perform Med Rec) 1 each MISCELLANE ONCE PRN PRN Reason: Consult order Potassium Chloride (Potassium Chloride Er 20 Meq Tab.Er.Prt) 40 meq PO ONCE ONE Stop: 11/30/22 09:49 Home Medications Medication Instructions Recorded Confirmed Last Taken Type albuterol sulfate 90 mcg/actuation 2 puff inhalation Q8H PRN wheezing 11/30/22 11/30/22 Unknown History aerosol inhaler (Ventolin HFA) amlodipine 10 mg tablet 10 mg PO DAILY 11/30/22 11/30/22 11/29/22 History ascorbic acid (vitamin C) 500 mg 500 mg PO DAILY 11/30/22 11/30/22 11/29/22 History tablet chlorthalidone 25 mg tablet 12.5 mg PO DAILY 11/30/22 11/30/22 11/29/22 History multivitamin 1 tab PO DAILY 11/30/22 11/30/22 11/29/22 History tiotropium bromide 2.5 2 puff inhalation DAILY 11/30/22 11/30/22 11/29/22 History mcg/actuation mist for inhalation (Spiriva Respimat) Physical Exam Vital Signs and Narrative: Vital Signs: Last Vital Signs Temp 99.2 F 11/30/22 07:22 Pulse 107 H 11/30/22 08:15 Resp 16 11/30/22 08:15 BP 124/61 11/30/22 07:22 Pulse Ox 92 11/30/22 07:22 O2 Del Method Room Air 11/30/22 07:22 BMI result Body Mass Index 33.0 General: AO X 3, no acute distress Resp: CTA bilateral, no accessory muscles used CVS: S1,S2,RRR GI: soft, non tender, non distended Neuro: motor grossly intact, alert Psych: appropriate affect, appropriate insight Results Labs 11/30/22 06:01 11/30/22 06:01 Labs: Laboratory Results - last 24 hr 11/30/22 11/30/22 11/30/22 06:00 06:00 06:01 MCV 89.9 MCH 29.9 MCHC 33.2 RDW 12.8 Plt Count 211 MPV 9.6 Immature Gran % (Auto) 0.6 H Neut % (Auto) 92.4 H Lymph % (Auto) 4.4 L [place] % (Auto) 2.1 Eos % (Auto) 0.2 Baso % (Auto) 0.3 Lymph # (Auto) 0.6 L [place] # (Auto) 0.3 Eos # (Auto) 0.0 Baso # (Auto) 0.0 Abs Immat Gran (auto) 0.08 H Absolute Neuts (auto) 12.1 H Absolute Nucleated RBC 0.000 Nucleated RBC % (auto) 0.0 Smear Tech's Comments VERIFIED PT INR APTT Anion Gap Estim Creat Clear Calc Estimated GFR Random Glucose Lactic Acid 2.0 Calcium Magnesium Total Bilirubin Direct Bilirubin AST ALT Alkaline Phosphatase Total Creatine Kinase Troponin I High Sens B-Natriuretic Peptide 14 Total Protein Albumin Lipase Beta HCG, Quant Urine Color Urine Appearance Urine pH Ur Specific [place] Urine Protein Urine Glucose (UA) Urine Ketones Urine Blood Urine Nitrite Ur Leukocyte Esterase Urine RBC Urine WBC Ur Squamous Epith Cells Urine Bacteria Hyaline Casts Influenza Type A (PCR) Influenza Type B (PCR) RSV RNA Qual (PCR) SARS-CoV-2 RNA (RT-PCR) 11/30/22 11/30/22 11/30/22 06:01 06:01 06:01 MCV MCH MCHC RDW Plt Count MPV Immature Gran % (Auto) Neut % (Auto) Lymph % (Auto) [place] % (Auto) Eos % (Auto) Baso % (Auto) Lymph # (Auto) [place] # (Auto) Eos # (Auto) Baso # (Auto) Abs Immat Gran (auto) Absolute Neuts (auto) Absolute Nucleated RBC Nucleated RBC % (auto) Smear Tech's Comments PT INR APTT Anion Gap 15 Estim Creat Clear Calc 75.1 Estimated GFR > 60 Random Glucose 156 H Lactic Acid Calcium 9.6 Magnesium 1.5 L Total Bilirubin 0.9 Direct Bilirubin 0.3 AST 24 ALT 22 Alkaline Phosphatase 100 Total Creatine Kinase 89 Troponin I High Sens 63.4 H* B-Natriuretic Peptide Total Protein 7.8 Albumin 4.3 Lipase 88 H Beta HCG, Quant < 2 Urine Color Urine Appearance Urine pH Ur Specific [place] Urine Protein Urine Glucose (UA) Urine Ketones Urine Blood Urine Nitrite Ur Leukocyte Esterase Urine RBC Urine WBC Ur Squamous Epith Cells Urine Bacteria Hyaline Casts Influenza Type A (PCR) NEGATIVE Influenza Type B (PCR) NEGATIVE RSV RNA Qual (PCR) NEGATIVE SARS-CoV-2 RNA (RT-PCR) NEGATIVE 11/30/22 11/30/22 11/30/22 06:50 07:20 08:13 MCV MCH MCHC RDW Plt Count MPV Immature Gran % (Auto) Neut % (Auto) Lymph % (Auto) [place] % (Auto) Eos % (Auto) Baso % (Auto) Lymph # (Auto) [place] # (Auto) Eos # (Auto) Baso # (Auto) Abs Immat Gran (auto) Absolute Neuts (auto) Absolute Nucleated RBC Nucleated RBC % (auto) Smear Tech's Comments PT 12.5 INR 1.1 APTT 24.3 L Anion Gap Estim Creat Clear Calc Estimated GFR Random Glucose Lactic Acid Calcium Magnesium Total Bilirubin Direct Bilirubin AST ALT Alkaline Phosphatase Total Creatine Kinase Troponin I High Sens 170.0 H* D B-Natriuretic Peptide Total Protein Albumin Lipase Beta HCG, Quant Urine Color Dark Yellow Urine Appearance Clear Urine pH 6.0 Ur Specific [place] 1.015 Urine Protein 100 (2+) H Urine Glucose (UA) Negative Urine Ketones Negative Urine Blood Trace H Urine Nitrite Positive H Ur Leukocyte Esterase Moderate (2+) H Urine RBC 3-5 H Urine WBC >50 H Ur Squamous Epith Cells 0-2 Urine Bacteria None Seen Hyaline Casts 0-2 Influenza Type A (PCR) Influenza Type B (PCR) RSV RNA Qual (PCR) SARS-CoV-2 RNA (RT-PCR) Imaging Radiologist's Impressions: Impressions Chest X-Ray 11/30/22 06:05 IMPRESSION: Hyperinflated lungs suggesting COPD. Questionable central peribronchial thickening which may reflect airways disease. Abdomen/Pelvis CT 11/30/22 07:35 IMPRESSION: 1. Subtle finding of delayed left nephrogram with subtle left perinephric and periureteric stranding. Left ureter is slightly prominent in size with mild mural enhancement. No evidence of left hydronephrosis. No evidence of radiopaque urinary tract calculi. The findings are nonspecific, however, may be seen in the setting of urinary tract infection on recent passage of a calculus. Recommend clinical correlation and correlation with urinalysis. 2. No evidence of abnormal bowel dilatation or bowel obstruction. 3. Normal appendix. 4. A 0.7 cm low-attenuation right renal lesion is too small to characterize accurately however statistically likely represents a cyst. Fleischner guidelines were followed. Assessment and Plan (1) Pyelonephritis: Status: Acute Plan 57F PMH COPD, HTN, obesity, presented with fever sepsis due to acute left pyelonephritis suspect passed stone rocephin, follow up cultures, IVF elevated troponin mild demand ischemia, no evidence of ACS outpatient cardio hypokalemia, hypomagnesemia replace, monitor htn holding bp meds for borderline bp copd continue spiriva, albuterol prn obesity weight loss recommended dvt prophylaxis - lovenox full code patient with sespsis, concern for bacteremia, decopmensation, therefore expected to require atleast 2 midnights inpatient. Time Spent With Patient Time: Total time managing care of this patient today ____ minutes. Quality Stroke Does the patient have a stroke diagnosis?: No VTE Prior VTE?: No VTE Risk Level:: Medical - moderate - high VTE Device Contraindication: Treatment Not Indicated VTE Drug Contraindication: N/A - Med Ordered
[2022-11-30] MEDS: 0.9 % Sodium Chloride 1,000 ML 80 ML IVCONT (10:12)
[2022-11-30] MEDS: Potassium Chloride ER 20 MEQ TAB.ER.PRT 40 MEQ PO (10:12)
[2022-11-30] MEDS: cefTRIAXone sodium 1 GM in 0.9 % Sodium Chloride 50 ML IV (10:12)
[2022-11-30] MEDS: Magnesium Oxide 400 MG TABLET PO ×2 (10:12→16:27)
--- NOTE | 2022-11-30 10:22 | PC.NURSE ---
patient a&ox3, ambulates independently with steady gait to bathroom, monitoring analyst intact nsr 90s, ivf hung per order, second bag of K hung per order, call manzano within reach, will continue to monitor
--- NOTE | 2022-11-30 11:31 | PC.NURSE ---
patient a&ox3, vss, cardiac monitor technician nsr, ivf running per order, will continue to monitor
--- NOTE | 2022-11-30 13:16 | PC.NURSE ---
floor called to give report- RN unable to take report at this time and will call back
[2022-11-30] MEDS: Acetaminophen 325 MG TABLET 650 MG PO (19:51)
[2022-12-01 03:19] VITALS: BP 145/76; PULSE 100; RESP 18; TEMP 36.8; O2SAT 92
[2022-12-01] MEDS: 0.9 % Sodium Chloride 1,000 ML 80 ML IVCONT ×2 (04:09→17:20)
[2022-12-01 07:12] LABS: Hematocrit 35.5 % (37.0-47.0); Hemoglobin 11.8 g/dl (12.0-16.0); Mean Corpuscular HGB Conc 33.2 g/dl (31.0-35.0); Mean Corpuscular Hemoglobin 30.2 pg (27.0-33.0); Mean Corpuscular Volume 90.8 fL (80.0-98.0); Mean Platelet Volume 9.4 fL (9.4-12.3); Platelet Count 178 X10*3/uL (160-400); Red Blood Count 3.91 X10*6/uL (4.20-5.50); Red Cell Distribution Width 13.2 % (11.0-16.0); White Blood Count 11.3 X10*3/uL (4.8-10.8)
[2022-12-01 07:42] VITALS: BP 142/67; PULSE 110; RESP 20; TEMP 36.9; O2SAT 93
[2022-12-01 07:44] LABS: Anion Gap 13 (12-20); Blood Urea Nitrogen 7 mg/dL (9-16); Calcium 8.4 mg/dL (8.4-10.2); Carbon Dioxide 27 mmol/L (22-29); Chloride 100 mmol/L (96-108); Creatinine Clr Calc Pharmacy 93.2; Estimated Glomerular Filt Rate > 60; Glucose Fasting 110 mg/dL (60-99); Magnesium 1.9 mg/dL (1.6-2.6); Sodium 137 mmol/L (135-145)
[2022-12-01] MEDS: Magnesium Oxide 400 MG TABLET PO ×2 (08:19→17:19)
[2022-12-01] MEDS: Multivitamin TABLET 1 TAB PO (08:19)
[2022-12-01] MEDS: Enoxaparin Sodium 40 MG/0.4 ML SYRINGE SUBCUT (08:19)
[2022-12-01] MEDS: Ascorbic Acid 500 MG TABLET PO (08:19)
[2022-12-01] MEDS: Acetaminophen 325 MG TABLET 650 MG PO ×2 (08:21→17:19)
--- NOTE | 2022-12-01 09:20 | MHC.CM.PN ---
CM MET WITH PT. LIVES ALONE IN A SECOND FLOOR [place]. EMPLOYED F/T. NO HCP BUT WILLING TO COMPLETE ONE WHILE HERE. +COVYUNG LIZARRAGA X4 PCP [facility]. DP: HOME WITH NO SERVICES ANTICIPATED. [place]ILY [place] TRANSPORT AT [place]
[2022-12-01] MEDS: Potassium Chloride ER 20 MEQ TAB.ER.PRT 40 MEQ PO (09:21)
[2022-12-01] MEDS: cefTRIAXone sodium 1 GM in 0.9 % Sodium Chloride 50 ML IV (09:25)
--- NOTE | 2022-12-01 10:46 | HO.PM.IMPN ---
Subjective Subjective Date of Service: 12/01/22 Physical Exam Vital Signs: Vital Signs: Last Vital Signs Temp 98.4 F 12/01/22 07:42 Pulse 110 H 12/01/22 07:42 Resp 20 12/01/22 07:42 BP 142/67 H 12/01/22 07:42 Pulse Ox 93 12/01/22 07:42 O2 Del Method Room Air 12/01/22 07:42 BMI result Body Mass Index 33.0 General: AO X 3, no acute distress Resp: CTA bilateral, no accessory muscles used CVS: S1,S2,RRR GI: soft, non tender, non distended Neuro: motor grossly intact, alert Psych: appropriate affect, appropriate insight Objective Data Active Medications Acetaminophen (Acetaminophen 325 Mg Tablet) 650 mg PO Q6H PRN PRN Reason: fever, moderate pain Last Admin: 12/01/22 08:21 Dose: 650 mg Documented By: BALJEET Albuterol Sulfate (Albuterol Sulfate 90 Mcg 8 Gm Inhaler) 2 puff INHALE Q8H PRN PRN Reason: wheezing Ascorbic Acid (Ascorbic Acid 500 Mg Tablet) 500 mg PO DAILY [facility] Last Admin: 12/01/22 08:19 Dose: 500 mg Documented By: BALJEET Enoxaparin Sodium (Enoxaparin Sodium 40 Mg/0.4 Ml Syringe) 40 mg SUBCUT Q24H [facility] Last Admin: 12/01/22 08:19 Dose: 40 mg Documented By: BALJEET Sodium Chloride (Ns) 1,000 mls @ 80 mls/hr IVCONT .[id number] [facility] Last Admin: 12/01/22 04:09 Dose: 80 mls/hr Documented By: SANTOSH Ceftriaxone Sodium 1 gm/ (Sodium Chloride) 50 mls @ 100 mls/hr IV Q24H [facility] Last Infusion: 12/01/22 09:56 Dose: 0 mls/hr Documented By: BALJEET Magnesium Oxide (Magnesium Oxide 400 Mg Tablet) 400 mg PO BIDPC [facility] Last Admin: 12/01/22 08:19 Dose: 400 mg Documented By: BALJEET Multivitamins/Vitamin C (Multivitamin Tablet) 1 tab PO DAILY [facility] Last Admin: 12/01/22 08:19 Dose: 1 tab Documented By: BALJEET Pharmacy Consult (Consult Rx Perform Med Rec) 1 each MISCELLANE ONCE PRN PRN Reason: Consult order Labs 12/01/22 06:59 12/01/22 06:59 Labs: Laboratory Results - last 24 hr 12/01/22 12/01/22 06:59 06:59 MCV 90.8 MCH 30.2 MCHC 33.2 RDW 13.2 Plt Count 178 MPV 9.4 Absolute Nucleated RBC 0.000 Nucleated RBC % (auto) 0.0 Anion Gap 13 Estim Creat Clear Calc 93.2 Estimated GFR > 60 Fasting Glucose 110 H Calcium 8.4 D Magnesium 1.9 Microbiology Microbiology Results: Microbiology 11/30/22 06:00 Blood Culture - Preliminary Blood - Venous Gram negative earnest 11/30/22 06:00 Blood Culture - Preliminary Blood - Venous Gram negative earnest 11/30/22 08:13 Urine Culture - Preliminary Urine clean catch - Urine styles top Gram negative earnest Assessment and Plan (1) COPD (chronic obstructive pulmonary disease): Status: Acute Plan 57F PMH COPD, HTN, obesity, presented with fever sepsis due to acute left pyelonephritis complicated by GNR bacteremia suspect passed stone continue rocephin, follow up cultures, IVF elevated troponin mild demand ischemia, no evidence of ACS outpatient cardio hypokalemia, hypomagnesemia replace, monitor htn holding bp meds for borderline bp copd continue spiriva, albuterol prn obesity weight loss recommended dvt prophylaxis - lovenox full code reason for continued hospitalization:awaiting defervesence Time Spent With Patient Time: Total time managing care of this patient today ____ minutes. Quality Stroke Does the patient have a stroke diagnosis?: No VTE Prior VTE?: No VTE Risk Level:: Medical - moderate - high VTE Device Contraindication: Treatment Not Indicated VTE Drug Contraindication: N/A - Med Ordered
[2022-12-01 10:50] VITALS: BP 111/69; PULSE 91; RESP 20; TEMP 37.2; O2SAT 93
[2022-12-01 15:19] VITALS: BP 138/79; PULSE 97; RESP 18; TEMP 37.1; O2SAT 98
[2022-12-01 19:24] VITALS: BP 132/78; PULSE 78; RESP 18; TEMP 37.2; O2SAT 98
[2022-12-01 23:37] VITALS: BP 146/72; PULSE 92; RESP 20; TEMP 36.6; O2SAT 96
[2022-12-02] MEDS: Acetaminophen 325 MG TABLET 650 MG PO (00:58)
[2022-12-02 03:32] VITALS: BP 128/66; PULSE 80; TEMP 36.7; O2SAT 94
[2022-12-02] MEDS: 0.9 % Sodium Chloride 1,000 ML 80 ML IVCONT (06:04)
[2022-12-02 06:56] LABS: Hematocrit 35.8 % (37.0-47.0); Hemoglobin 11.8 g/dl (12.0-16.0); Mean Corpuscular Hemoglobin 30.3 pg (27.0-33.0); Mean Corpuscular Volume 91.8 fL (80.0-98.0); Mean Platelet Volume 9.9 fL (9.4-12.3); Platelet Count 168 X10*3/uL (160-400); Red Cell Distribution Width 13.2 % (11.0-16.0); White Blood Count 6.4 X10*3/uL (4.8-10.8)
[2022-12-02 07:15] LABS: Anion Gap 12 (12-20); Blood Urea Nitrogen 7 mg/dL (9-16); Carbon Dioxide 31 mmol/L (22-29); Chloride 102 mmol/L (96-108); Creatinine Clr Calc Pharmacy 97.5; Estimated Glomerular Filt Rate > 60; Glucose Fasting 115 mg/dL (60-99); Potassium 4.3 mmol/L (3.3-5.1); Sodium 141 mmol/L (135-145)
[2022-12-02 07:33] VITALS: BP 134/70; PULSE 86; RESP 20; TEMP 36.7; O2SAT 93
[2022-12-02] MEDS: Magnesium Oxide 400 MG TABLET PO (08:37)
[2022-12-02] MEDS: Ascorbic Acid 500 MG TABLET PO (08:37)
[2022-12-02] MEDS: Multivitamin TABLET 1 TAB PO (08:37)
[2022-12-02] MEDS: cefTRIAXone sodium 1 GM in 0.9 % Sodium Chloride 50 ML IV (08:38)
[2022-12-02] MEDS: Enoxaparin Sodium 40 MG/0.4 ML SYRINGE SUBCUT (08:38)
[2022-12-02] MEDS: Albuterol Sulfate 90 MCG 8 GM INHALER 2 PUFF INHALE (08:55)
--- NOTE | 2022-12-02 09:10 | PM.DS ---
DS: Providers Provider Date of Service: 12/02/22 Date of admission: 11/30/22 09:49 Primary care physician: SAJI Jasso DS: Diagnosis Discharge Diagnosis (1) COPD (chronic obstructive pulmonary disease): Status: Acute DS: Summary Hospital Course Hospital Course: from initial hpi: 57F PMH COPD, HTN, obesity, presented with fever. patient reports feeling unwell about 5 days. has had severe left flank pain, associated with dysuria, fever, chills, lethargy. symptoms worsened so came to ED. denies chest pain, sob, previous similar episodes, no history of nephrolithiasis. in ED noted to have fever, tachycardia, positive UA, pernipehric stranding on CT. hospital course: patient was admitted for sepsis due to acute left pyelonephritis complicated by ecoli bacteremia likely due to passed stone. she was treated with rocephin, sepsis and pain resolved. will be discharged on 7 more days of ceftin. noted to have elevated troponin without chest pain, likely demand ischemia not ACS. should follow up with cardiology to rule out underlying CAD. for hypokalemia and hypomagnesemia she received replacement. for htn her bp meds were held. can be restarted on discharge. for copd she was continued on inhalers as needed. for obesity weight loss is recommended. Time Spent with Patient Time attestation: Total time managing care of this patient today ____ minutes. Discharge coordination time: Greater than 30 minutes Quality: Safe Use of Opioids Does Pt have an Active Cancer Diagnosis on the Problem List?: No Quality: Stroke Does the patient have a stroke diagnosis?: No Physical Exam Vital Signs: Vital Signs: Last Vital Signs Temp 98.1 F 12/02/22 07:33 Pulse 86 12/02/22 07:33 Resp 20 12/02/22 07:33 BP 134/70 12/02/22 07:33 Pulse Ox 93 12/02/22 07:33 O2 Del Method Room Air 12/02/22 07:33 BMI result Body Mass Index 33.0 General: AO X 3, no acute distress Resp: CTA bilateral, no accessory muscles used CVS: S1,S2,RRR GI: soft, non tender, non distended Neuro: motor grossly intact, alert Psych: appropriate affect, appropriate insight DS: Data Data Completed and Pending Labs on day of discharge: Laboratory Results - last 24 hr 12/02/22 12/02/22 06:27 06:27 WBC 6.4 RBC 3.90 L Hgb 11.8 L Hct 35.8 L MCV 91.8 MCH 30.3 MCHC 33.0 RDW 13.2 Plt Count 168 MPV 9.9 Absolute Nucleated RBC 0.000 Nucleated RBC % (auto) 0.0 Sodium 141 Potassium 4.3 D Chloride 102 Carbon Dioxide 31 H Anion Gap 12 BUN 7 L Creatinine 0.64 Estim Creat Clear Calc 97.5 Estimated GFR > 60 Fasting Glucose 115 H Calcium 9.0 D Discharge Plan Discharge Anticipated Discharge Date/Time: 12/02/22 09:08 Patient Disposition: Home, Self-Care Discharge Diagnosis: sepsis pyelonephritis Referrals: Janet Rivera FNP [Primary Care Provider] - 1 Week Discharge Medications: New cefuroxime axetil 500 mg tablet 500 mg PO BID Qty: 14 0RF Continued chlorthalidone 25 mg tablet 12.5 mg PO DAILY amlodipine 10 mg tablet 10 mg PO DAILY albuterol sulfate [Ventolin HFA] 90 mcg/actuation HFA aerosol inhaler 2 puff INHALATION Q8H PRN (Reason: wheezing) Spiriva Respimat 2.5 mcg/actuation mist 2 puff INHALATION DAILY multivitamin Tablet 1 tab PO DAILY ascorbic acid (vitamin C) 500 mg Tablet 500 mg PO DAILY Discharge Orders: Discharge Order (Routine); Ordered 12/02/22 Ordered By: Omar Petty Diet: Advance to usual diet Activity on Discharge: As tolerated Stand Alone Forms: Patient Portal Discharge page Care Plan Goals: recovery Health Concerns: sepsis Plan of Treatment: 7 more days ceftin Assessment: see above
--- NOTE | 2022-12-02 09:19 | MHC.CM.PN ---
DP: PT HAS BEEN MEDICALLY CLEARED FOR DC HOME, NO SERVICES. FAMILY WILL TRANSPORT
[2022-12-02 11:26] VITALS: BP 121/67; PULSE 86; RESP 20; TEMP 37.5; O2SAT 93
== END 2022-12-02 12:14 | disposition home or self-care (01) | DRG 720 ==
LOC: HO.ED 08:58 → HO.EDOVER 10:02 → HO.IMC 12:01
PROVIDERS: Emergency Medicine; Physician Assistant Medical; Admitting Provider Internal Medicine; Emergency Provider Emergency Medicine Emergency Medical Services; PCP Registered Nurse; Visit Provider Internal Medicine
DX: A41.9 Sepsis, unspecified organism (principal); I24.8 Other forms of acute ischemic heart disease; E66.9 Obesity, unspecified; E83.42 Hypomagnesemia; I10 Essential (primary) hypertension; I25.10 Atherosclerotic heart disease of native coronary artery without angina pectoris; B96.20 Unspecified Escherichia coli [E. coli] as the cause of diseases classified elsewhere; Z68.33 Body mass index [BMI] 33.0-33.9, adult; E87.6 Hypokalemia; J44.9 Chronic obstructive pulmonary disease, unspecified; N10 Acute pyelonephritis; N20.0 Calculus of kidney; Z20.822 Contact with and (suspected) exposure to COVID-19; Z79.899 Other long term (current) drug therapy
CPT/HCPCS: 0241U; 36415; 71045; 74177; 80048; 80076; 81001; 82550; 83605; 83690; 83735; 83880; 84484; 84702; 85025; 85027; 85610; 85730; 87040; 87077; 87086; 87088; 87186; 87205; 93005; 94640; 99285; J0696; J1650; J2543; Q9967

== ENCOUNTER 2023-12-02 09:24 | Emergency (ER) | payer MEDICAID, SELFPAY ==
--- NOTE | ~2023-12-02 | XR_ITS ---
EXAMINATION: XR LUMBOSACRAL SPINE CLINICAL INFORMATION: Atraumatic lumbar pain. COMPARISON: CT abdomen/pelvis 11/30/2022. TECHNIQUE: Three views of the lumbosacral spine. FINDINGS: No evidence of acute compression deformity or traumatic subluxation. Mild multilevel intervertebral disc height loss. Moderate facet arthropathy at L4-L5 and L5-S1 with suggestion of some degree of neural foraminal encroachment at L5-S1. Symmetric SI joints. Scattered intraluminal densities throughout the bowel, similar compared to prior CT. No significant paraspinal soft tissue abnormality. XR/XR lumbar spine 2-3V IMPRESSION: 1. No acute compression deformity or malalignment. 2. Mild to moderate lumbar spondylosis, more prominent in the lower lumbar spine.
[2023-12-02 10:14] VITALS: BP 197/108; PULSE 95; RESP 16; TEMP 36.6; O2SAT 94; BMI 35.4
[2023-12-02 10:24] VITALS: BP 197/108
[2023-12-02] MEDS: amLODIPine Besylate 10 MG TABLET PO (10:24)
--- NOTE | 2023-12-02 10:24 | PC.NURSE ---
pt medicated for BP per order, c/o 03/02 lower back pain, pt awaiting provider at this time
--- NOTE | 2023-12-02 10:56 | ED_ITS ---
HPI - Back Pain/Injury General Chief Complaint: Back Pain/Injury Stated Complaint: back pain Time Seen by Provider: 12/02/23 10:14 Source: patient, RN notes reviewed and old records reviewed Mode of arrival: ambulatory Limitations: no limitations History of Present Illness HPI Narrative: 58 year old female with pmhx significant for hypertension, COPD, pyelonephritis, arthritis, hypokalemia and hypomagnesemia presents to the ED today for evaluation of atraumatic back pain on waking yesterday morning. Pain is localized to her mid-lumbar spine. No radiation of pain. Pain is exacerbated with position changes. She has been taking OTC Aleve without relief. Last dose last night. Denies injury/ trauma. Denies IV drug use. Denies spinal surgery history. Denies fever, chills, neck pain, bowel or bladder incontinence or retention, numbness/tingling/weakness in the lower extremities, dysuria, hematuria, saddle anesthesia. Of note, patient hypertensive to 197/108 in triage. She states that she did not take her amlodipine 10mg this morning. She denies headache, dizziness, presyncope, vision changes, chest pain, shortness of breath, palpitations. Related Data Home Medications ?Medication ?Instructions ?Recorded ?Confirmed albuterol sulfate 90 mcg/actuation 2 puff inhalation Q8H PRN wheezing 11/30/22 11/30/22 aerosol inhaler (Ventolin HFA) amlodipine 10 mg tablet 10 mg PO DAILY 11/30/22 11/30/22 ascorbic acid (vitamin C) 500 mg 500 mg PO DAILY 11/30/22 11/30/22 tablet chlorthalidone 25 mg tablet 12.5 mg PO DAILY 11/30/22 11/30/22 multivitamin 1 tab PO DAILY 11/30/22 11/30/22 tiotropium bromide 2.5 2 puff inhalation DAILY 11/30/22 11/30/22 mcg/actuation mist for inhalation (Spiriva Respimat) Previous Rx's ?Medication ?Instructions ?Recorded cefuroxime axetil 500 mg tablet 500 mg PO BID #14 tabs 12/02/22 cyclobenzaprine 5 mg tablet 5 mg PO Q8H PRN muscle spasm #10 12/02/23 tabs lidocaine 5 % topical patch 1 patch topical DAILY #15 ea 12/02/23 (Lidoderm) naproxen 500 mg tablet 500 mg PO Q8-12H PRN pain (scale 12/02/23 score 4-6) #20 tabs Allergies Allergy/AdvReac Type Severity Reaction Status Date / Time No Known Allergies Allergy Verified 12/02/23 10:16 Review of Systems Review of Systems: Constitutional: No fever, chills, fatigue, night sweats, weight changes ENT/Mouth: No ear pain, hearing loss, nasal congestion, sinus pain, rhinorrhea, sore throat Eyes: No eye pain, swelling, redness, vision changes, discharge Cardio: No chest pain, palpitations, THOMSON, orthopnea, peripheral edema Pulm: No SOB, cough, sputum, wheezing, dyspnea, hemoptysis GI: No nausea, vomiting, hematemesis, abdominal pain, diarrhea, constipation, hematochezia, melena : No irregular bleeding, dysuria, frequency, urgency, hesitancy, hematuria, flank pain, urinary flow changes, urinary incontinence or retention MSK: +back pain, No neck pain, joint pain, myalgias Skin: No lesions, rashes Neuro: No weakness, numbness, paresthesias, LOC, dizziness, headache All other systems reviewed and are negative. [facility] Past Medical History Attestation statement: The following information was validated with the patient. Source: old records reviewed and nursing notes reviewed Medical History COPD (chronic obstructive pulmonary disease) HTN (hypertension) Social History Social History Housing: Apartment Do you presently have visiting nurse or other home services: No Alcohol intake: never Patient Tobacco Use Status: Never used Tobacco Years Smoked: quit smokinig about a year ago, smoked whole life Advance Directives: No Advance Directives Information Provided: No service: No Current occupational status: employed Current occupation: Retail - Right handed Physical Exam Vital Signs: Vital Signs: Last Vital Signs Temp 97.0 F 12/02/23 12:55 Pulse 87 12/02/23 12:55 Resp 18 12/02/23 12:55 BP 180/83 H 12/02/23 12:55 Pulse Ox 96 12/02/23 12:55 O2 Del Method Room Air 12/02/23 12:55 BMI result Body Mass Index 35.4 Vital signs stable, afebrile Const: General: cooperative, healthy appearing, comfortable, no acute distress, alert, awake and Physically active Orientation/consciousness: patient oriented x3 HEENT: Head: Yes normal to inspection, Yes No palpable skull fracture present, Yes normocephalic and Yes atraumatic Eyes: General: appearance normal, both eyes and all related structures Pupils: Equal, round and reactive pupils present EOM: EOMs intact bilaterally Neck: Other: + no cervical midline spinous tenderness or step-off deformity. Neck: Yes normal visual inspection, Yes full ROM and Yes no meningeal signs Resp: Effort & Inspection: normal respiratory effort Auscultation: clear to auscultation bilaterally Cardio: Rate: regular rate Rhythm: regular rhythm GI: Inspection: Yes normal to inspection Palpation (GI): Soft to palpation and nontender : General: Yes no CVA tenderness Back/Spine/Pelvis: Other: + midline lumbar spinous tenderness with out step-off deformity. No paraspinal muscle tenderness or spasm. Back: no CVA tenderness Neuro: Other: Strength 5/5 intact throughout.? No saddle anesthesia.? Sensation intact to light touch.? Neurovascular intact distally.? General: patient oriented x3, gait normal and no meningeal signs Cranial nerves: Yes Equal, round and reactive pupils present Gait exam (Neuro): Norm al gait present Course Course Course Narrative: 1107-- patient noted to be hypertensive to 197/108. She states that she did not take her home dose of amlodipine this morning. Amlodipine 10 mg ordered for BP control. Awaiting urinalysis and lumbar spine x-ray. 1300-- Lumbar spine xray shows no fracture, malalignment. it does demonstrate lumbar spondylosis. urinalysis does not demonstrate infection or blood. no UTI. discussed all work up results with patient. on re-evaluation, patient reports improvement in symptoms with lido patch, toradol, and flexeril. blood pressure has improved to 180/83. will send pain meds to pharmacy. Patient has remained stable throughout ED visit today. Discussed worrisome signs and symptoms and when to return to the ED. All questions answered at this time. Patient is agreeable with disposition and stable for discharge. Medications Administered Discontinued Medications Generic Name Dose Route Start Last Admin Trade Name Freq PRN Reason Stop Dose Admin Amlodipine Besylate 10 mg 12/02/23 10:14 12/02/23 10:24 Amlodipine Besylate 10 Mg Tablet PO 12/02/23 10:15 10 mg ONCE ONE Administration Protocol Cyclobenzaprine HCl 10 mg 12/02/23 10:54 12/02/23 11:04 Cyclobenzaprine Hcl 10 Mg Tablet PO 12/02/23 10:55 10 mg ONCE ONE Administration Ketorolac Tromethamine 30 mg 12/02/23 10:54 12/02/23 11:03 Ketorolac Tromethamine 30 Mg/Ml Vial IM 12/02/23 10:55 30 mg ONCE ONE Administration Lidocaine 1 patch 12/02/23 10:54 12/02/23 11:04 Lidocaine 4 % Patch Adh..Patch TRANSDERMA 12/02/23 10:55 1 patch ONCE ONE Administration Protocol Medical Decision Making Medical Decision Making [facility] Narrative: 58 year old female with pmhx significant for hypertension, COPD, pyelonephritis, arthritis, hypokalemia and hypomagnesemia presents to the ED today for evaluation of atraumatic back pain on waking yesterday morning. Patient hypertensive, vitals otherwise WNL. She is nontoxic-appearing and in no acute distress. Ambulating with steady but slow gait secondary to back pain. There is midline lumbar spinous tenderness without step-off deformity. No paraspinal muscle tenderness or spasm. No CVAT bilaterally. No overlying skin changes or deformity noted to back. Neurovascularly intact distally. Strength 5/5 intact. Sensation intact to light touch. Differential diagnosis includes msk sprain, msk strain, herniated disc, sciatia, muscle spasm. Lower suspicion for nephrolithiasis, urinary tract infection, pyelonephritis, hydronephrosis. Unlikely obstructive uropathy, spinal fracture, cord compression, cauda equina, Guillain-[place], epidural abscess. Plan for imaging, pain control and disposition. Differential Diagnosis Differential Diagnoses: The differential diagnosis associated with the presentation includes as above Admission/Observation Not indicated. Lab Data [facility] Lab Attestation statement: I reviewed the patient's lab results. as above. Labs: Lab Results 12/02/23 Range/Units 11:58 Urine Color Dark Yellow Urine Appearance Cloudy Urine pH 5.5 (5.0-9.0) Ur Specific [place] >= 1.030 H (1.005-1.025) Urine Protein Trace (Neg-Trace) mg/dL Urine Glucose (UA) Negative (Negative) mg/dL Urine Ketones Trace (Negative) mg/dL Urine Blood Negative (Negative) Urine Nitrite Negative (Negative) Ur Leukocyte Esterase Negative (Negative) Independent Interpretation I performed an independent interpretation of an: Plain X-Ray Interpretation: X-ray lumbar spine does not exhibit fracture, agree with radiologist's interpretation. Radiology Impression Discussion of test interpretation with radiology: I have reviewed the radiologist's reading. Radiologist Impression: EXAMINATION: XR LUMBOSACRAL SPINE CLINICAL INFORMATION: Atraumatic lumbar pain. COMPARISON: CT abdomen/pelvis 11/30/2022. TECHNIQUE: Three views of the lumbosacral spine. FINDINGS: No evidence of acute compression deformity or traumatic subluxation. Mild multilevel intervertebral disc height loss. Moderate facet arthropathy at L4-L5 and L5-S1 with suggestion of some degree of neural foraminal encroachment at L5-S1. Symmetric SI joints. Scattered intraluminal densities throughout the bowel, similar compared to prior CT. No significant paraspinal soft tissue abnormality. XR/XR lumbar spine 2-3V IMPRESSION: 1. No acute compression deformity or malalignment. 2. Mild to moderate lumbar spondylosis, more prominent in the lower lumbar spine. External Record Review External record reviewed: Inpatient record, Office record, Outpatient record, Prior outpatient labs, Prior outpatient radiology, Primary care record and Outside ED record Prescription Management I considered prescription management with: Pain Medication (Naproxen) and Other (Flexeril, lidocaine patch) Chronic Conditions Patient?s care impacted by: Hypertension Social Determinants Patient?s care significantly limited by Social Determinants of Health including: Other Social Determinant of Health Critical Care Time Critical Care Time Critical Care Time: No Discharge Plan Discharge Clinical Impression: Lumbar spine strain, Hypertension Patient Disposition: Home, Self-Care Instructions: How to Take a Blood Pressure (ED), Chronic Hypertension (ED), DASH Eating Plan (ED), Hypertension (ED), Back Pain (ED), Lower Back Exercises (ED) Additional Instructions: Your imaging studies today did not show acute fracture. Your pain is likely musculoskeletal. Avoid bending, lifting, or twisting. Use ice several times per day for 20 minutes at a time for the next 48 hours and then change to heat. Flexeril is a muscle relaxer. Take this at night as it makes you drowsy. Do not drive, drink alcohol, or operate machinery while taking it. Naproxen is an anti-inflammatory / pain medication. Take with food. Do not take this with Ibuprofen. Lidoderm patches are numbing patches. Apply to painful areas. In addition you may take Tylenol at home. Follow up with your primary care provider as needed If your pain worsens, if you develop new numbness, tingling, weakness, loss of bowel or bladder function call 911 or return to the ER immediately for evaluation. Your blood pressure was noted to be high on arrival to ED. You were given your dose of amlodipine 10mg in ED. Please make sure that you are taking all of your home medications including amlodipine to ensure that your blood pressure stays normalized. If your blood pressure is noted to be increasingly elevated or you start exhibiting headache, dizziness, vision changes, chest pain, palpitations or shortness of breath, please return to the ED. Follow up with your PCP regarding today's visit. Prescriptions: New lidocaine [Lidoderm] 5 % adhesive patch,medicated 1 patch topical DAILY Qty: 15 0RF Rx Instructions: leave on most painful area for up to 12 hrs naproxen 500 mg tablet 500 mg PO Q8-12H PRN (Reason: pain (scale score 4-6)) Qty: 20 0RF cyclobenzaprine 5 mg tablet 5 mg PO Q8H PRN (Reason: muscle spasm) Qty: 10 0RF No Action chlorthalidone 25 mg tablet 12.5 mg PO DAILY amlodipine 10 mg tablet 10 mg PO DAILY albuterol sulfate [Ventolin HFA] 90 mcg/actuation HFA aerosol inhaler 2 puff INHALATION Q8H PRN (Reason: wheezing) Spiriva Respimat 2.5 mcg/actuation mist 2 puff INHALATION DAILY multivitamin Tablet 1 tab PO DAILY ascorbic acid (vitamin C) 500 mg Tablet 500 mg PO DAILY cefuroxime axetil 500 mg tablet 500 mg PO BID Qty: 14 0RF Referrals: Janet Rivera FNP [Primary Care Provider] - Stand Alone Forms: Work/School Release Print Language: Polish
[2023-12-02] MEDS: Ketorolac Tromethamine 30 MG/ML VIAL IM (11:03)
[2023-12-02] MEDS: Cyclobenzaprine HCl 10 MG TABLET PO (11:04)
[2023-12-02] MEDS: Lidocaine 4 % Patch ADH..PATCH 1 PATCH TRANSDERMA (11:04)
--- NOTE | 2023-12-02 11:07 | PC.NURSE ---
pt medicated per order
[2023-12-02 12:07] LABS: Appearance Urine Cloudy; Color Urine Dark Yellow; Glucose Urine UA Negative (Negative); Leukocyte Esterase Urine Negative (Negative); Nitrite Urine Negative (Negative); PH 5.5 (5.0-9.0); Specific Gravity - Urine >= 1.030 (1.005-1.025); Urine Blood Negative (Negative); Urine Ketones Trace mg/dL (Negative); Urine Protein Trace mg/dL (Neg-Trace)
[2023-12-02 12:55] VITALS: BP 180/83; PULSE 87; RESP 18; TEMP 36.1; O2SAT 96
[2023-12-02 13:30] VITALS: BP 180/83; PULSE 87; RESP 18; TEMP 36.1; O2SAT 96
== END 2023-12-02 13:30 | disposition home or self-care (01) ==
PROVIDERS: Physician Assistant Medical; Emergency Provider Student in an Organized Health Care Education/Training Program; PCP Registered Nurse
DX: S39.012A Strain of muscle, fascia and tendon of lower back, initial encounter (principal); X58.XXXA Exposure to other specified factors, initial encounter; Y93.9 Activity, unspecified; Y92.9 Unspecified place or not applicable; Y99.9 Unspecified external cause status; I10 Essential (primary) hypertension; J44.9 Chronic obstructive pulmonary disease, unspecified; Z79.899 Other long term (current) drug therapy
CPT/HCPCS: 72100; 81003; 96372; 99284; J1885

== ENCOUNTER 2024-01-05 07:25 | Emergency (ER) | payer MEDICAID, SELFPAY ==
[2024-01-05 07:35] VITALS: BP 144/73; PULSE 97; RESP 18; TEMP 37.2; O2SAT 95; BMI 33.5
--- NOTE | 2024-01-05 07:57 | ED.FEMALEGU ---
HPI - Female Genitourinary General Chief complaint: Urogenital-Female Stated complaint: ? UTI Time Seen by Provider: 01/05/24 07:57 Source: patient Mode of arrival: ambulatory Limitations: no limitations History of Present Illness ED Provider: Eva Dos Santos PA-C HPI Narrative: Patient is a 58 year old assigned female at with a history of HTN and COPD presenting to the emergency department today with urinary complaints. Patient states that over the last 3 days she has had increased urinary urgency, increased urinary frequency, and foul smelling urine. Patient denies any dizziness, lightheadedness, abdominal pain, nausea, vomiting, fever, chills, blurry vision, double vision, loss of vision, chest pain, difficulty breathing, shortness of breath, back pain, night sweats, pain with urination, blood in her urine or stool, syncope or a near syncopal episode, recent trauma or falls, bowel incontinence, bladder incontinence, or any other complaints at this time. Onset (ago): day(s) (3) Severity: mild Urinary symptoms: Urgency and Frequency Exacerbating factors: none Relieving factors: none Treatment prior to arrival: none Related Data Home Medications ?Medication ?Instructions ?Recorded ?Confirmed albuterol sulfate 90 mcg/actuation 2 puff inhalation Q8H PRN wheezing 11/30/22 11/30/22 aerosol inhaler (Ventolin HFA) amlodipine 10 mg tablet 10 mg PO DAILY 11/30/22 11/30/22 ascorbic acid (vitamin C) 500 mg 500 mg PO DAILY 11/30/22 11/30/22 tablet chlorthalidone 25 mg tablet 12.5 mg PO DAILY 11/30/22 11/30/22 multivitamin 1 tab PO DAILY 11/30/22 11/30/22 tiotropium bromide 2.5 2 puff inhalation DAILY 11/30/22 11/30/22 mcg/actuation mist for inhalation (Spiriva Respimat) Previous Rx's ?Medication ?Instructions ?Recorded cefuroxime axetil 500 mg tablet 500 mg PO BID #14 tabs 12/02/22 cyclobenzaprine 5 mg tablet 5 mg PO Q8H PRN muscle spasm #10 12/02/23 tabs lidocaine 5 % topical patch 1 patch topical DAILY #15 ea 12/02/23 (Lidoderm) naproxen 500 mg tablet 500 mg PO Q8-12H PRN pain (scale 12/02/23 score 4-6) #20 tabs cefuroxime axetil 250 mg tablet 250 mg PO BID 7 days #14 tabs 01/05/24 Allergies Allergy/AdvReac Type Severity Reaction Status Date / Time Penicillins Allergy Hives Verified 01/05/24 07:36 Review of Systems Constitutional: Constitutional: Reports no additional constitutional complaints, Denies chills, Denies fever(s) and Denies night sweats Eyes: Eyes: Reports no additional eye complaints, Denies blurry vision, Denies change in vision, Denies diplopia, Denies eye discharge, Denies loss of vision and Denies eye pain ENT: Denies dizziness Cardiovascular: Cardiovascular: Reports no additional cardiovascular complaints, Denies chest pain, Denies lightheadedness, Denies Loss of Consciousness and Denies dyspnea Respiratory: Respiratory: Reports no additional respiratory complaints and Denies dyspnea Gastrointestinal: Gastrointestinal: Reports no additional gastrointestinal complaints, Denies abdominal pain, Denies melena, Denies hematochezia, Denies change in bowel habits and Denies change in stool character Genitourinary: Genitourinary: Denies hematuria, Denies urinary frequency, Denies dysuria, Denies urinary incontinence, Denies urinary hesitancy and Reports urinary urgency Comments: increased urinary frequency Musculoskeletal: Musculoskeletal: Reports no additional musculoskeletal complaints, Denies numbness and Denies tingling Neurologic: Denies dizziness, Denies loss of vision, Denies numbness and Denies tingling Psychiatric: Psychiatric: Reports no additional psychiatric complaints Endocrine: Endocrine: Reports no additional endocrine complaints Hematologic/Lymphatic: Hematologic/Lymphatic: Reports no additional hematologic/lymphatic complaints Allergic/Immunologic: Allergic/Immunologic: Reports no additional allergic/immunologic complaints [facility] Past Medical History Attestation statement: The following information was validated with the patient. Source: old records reviewed and nursing notes reviewed Medical History COPD (chronic obstructive pulmonary disease) HTN (hypertension) Social History Social History Housing: Apartment Do you presently have visiting nurse or other home services: No Alcohol intake: never Patient Tobacco Use Status: Never used Tobacco Years Smoked: quit smokinig about a year ago, smoked whole life Smoked in Last 30 Days: No Use of substances other than those prescribed or required for medical reasons: No Advance Directives: No Advance Directives Information Provided: No Do you have a plan to hurt others: No Plan Patient : No service: No Current occupational status: employed Current occupation: Retail - Right handed Physical Exam Vital Signs: Vital Signs: Last Vital Signs Temp 98.8 F 01/05/24 08:36 Pulse 102 H 01/05/24 08:36 Resp 18 01/05/24 08:36 BP 131/72 01/05/24 08:36 Pulse Ox 98 01/05/24 08:36 O2 Del Method Room Air 01/05/24 08:36 BMI result Body Mass Index 33.5 Const: General: cooperative, no acute distress, alert and awake Nutritional Appearance: well nourished Orientation/consciousness: patient oriented x3 Limitations: no limitations HEENT: Head: Yes normal to inspection and Yes atraumatic Ears: hearing grossly normal bilaterally and external ears normal General nose exam: Normal external nose present, no nasal discharge noted and no epistaxis Face and sinus: Yes normal facial exam, No abrasion and No laceration Mouth: Normal oral and palatal mucosa present, no drooling and no muffled voice Eyes: General: appearance normal, both eyes and all related structures Periorbital: periorbital findings normal Eyelids: Yes eyelids normal Conjunctivae: conjunctivae normal Pupils: Equal, round and reactive pupils present EOM: EOMs intact bilaterally Neck: Neck: Yes normal visual inspection, Yes full ROM and Yes no lymphadenopathy Chest: Chest palpation & inspection: normal inspection of the chest Resp: Effort & Inspection: normal respiratory effort and able to speak in complete sentences GI: Inspection: Yes normal to inspection Neuro: General: patient oriented x3 and moves all extremities Cranial nerves: Yes Equal, round and reactive pupils present Cognition (Neuro): normal cognition Motor exam (neuro): 5/5 motor strength present throughout Sensory Exam: Normal double simultaneous stimulation for sensation Coordination: [id number] test normal Extrem: General: Yes normal to inspection, Yes full ROM and Yes capillary refill normal Psych: Appearance: grossly normal Mental Status: mental status grossly normal Affect: normal affect Attitude: cooperative Thought process: Normal thought process present Thought content: Normal thought content present Insight: Good insight present (Psych) Medical Decision Making Medical Decision Making MDM Narrative: Patient is a 58 year old assigned female at with a history of COPD and HTN presenting to the emergency department today with urinary symptoms. Patient's physical exam was unremarkable. Patient's urine showed evidence of an acute UTI. I explained my physical exam findings as well as all test results to the patient. I answered all questions asked by the patient. I stressed the importance of the patient taking her medication as prescribed. I stressed the importance of the patient following up with her primary care provider. I stressed the importance of the patient returning to the emergency department immediately if her symptoms were to worsen or if she were to develop any dizziness, shortness of breath, difficulty breathing, chest pain, blurry vision, loss of vision, nausea, vomiting, abdominal pain, fever, chills, back pain, or any other complaints. Patient verbalized agreement and understanding with this treatment plan and discharge. Differential Diagnosis Differential Diagnoses: The differential diagnosis associated with the presentation includes UTI Increased urinary urgency Increased urinary frequency Admission/Observation Consideration of admission/observation: Escalation of care including admission/observation considered Patient would have been admitted to the hospital had her work up had any findings where hospital admission was appropriate and her clinical presentation warranted hospital admission. Lab Data [facility] Lab Attestation statement: I reviewed the patient's lab results. My interpretation of these results are in the [facility] Rationale portion of this note. Labs: Lab Results 01/05/24 Range/Units 07:56 Urine Color Dark Yellow Urine Appearance Cloudy Urine pH 6.0 (5.0-9.0) Ur Specific [place] 1.015 (1.005-1.025) Urine Protein 100 (2+) H (Neg-Trace) mg/dL Urine Glucose (UA) Negative (Negative) mg/dL Urine Ketones Negative (Negative) mg/dL Urine Blood Moderate (2+) H (Negative) Urine Nitrite Negative (Negative) Ur Leukocyte Esterase Moderate (2+) H (Negative) Urine RBC >20 H (0-2) /HPF Urine WBC >50 H (0-5) /HPF Ur Squamous Epith Cells 0-2 (0-2) /HPF Urine Bacteria None Seen (None Seen) Hyaline Casts 0-2 (0-2) /LPF Prescription Management I considered prescription management with: Antibiotic (patient prescribed an antibiotic for a UTI) Chronic Conditions Patient?s care impacted by: Hypertension Discharge Plan Discharge Clinical Impression: UTI (urinary tract infection) Patient Disposition: Home, Self-Care Instructions: Urinary Tract Infection in Women (DC) Additional Instructions: Follow up with your primary care provider. Return to the emergency department immediately if your symptoms worsen or if you develop any dizziness, shortness of breath, difficulty breathing, chest pain, blurry vision, loss of vision, nausea, vomiting, abdominal pain, fever, chills, back pain, or any other complaints. Prescriptions: New cefuroxime axetil 250 mg tablet 250 mg PO BID 7 Days Qty: 14 0RF No Action chlorthalidone 25 mg tablet 12.5 mg PO DAILY amlodipine 10 mg tablet 10 mg PO DAILY albuterol sulfate [Ventolin HFA] 90 mcg/actuation HFA aerosol inhaler 2 puff INHALATION Q8H PRN (Reason: wheezing) Spiriva Respimat 2.5 mcg/actuation mist 2 puff INHALATION DAILY multivitamin Tablet 1 tab PO DAILY ascorbic acid (vitamin C) 500 mg Tablet 500 mg PO DAILY cefuroxime axetil 500 mg tablet 500 mg PO BID Qty: 14 0RF cyclobenzaprine 5 mg tablet 5 mg PO Q8H PRN (Reason: muscle spasm) Qty: 10 0RF lidocaine [Lidoderm] 5 % adhesive patch,medicated 1 patch topical DAILY Qty: 15 0RF Rx Instructions: leave on most painful area for up to 12 hrs naproxen 500 mg tablet 500 mg PO Q8-12H PRN (Reason: pain (scale score 4-6)) Qty: 20 0RF Referrals: Janet Rivera, SUBSTATION ENGINEER [Primary Care Provider] - Stand Alone Forms: Work/School Release Interventions: ED Discharge Assessment Last Done: 01/05/24 08:36 Discharge Date/Time: 01/05/24 08:38 Print Language: Hebrew
[2024-01-05 08:03] LABS: Appearance Urine Cloudy; Color Urine Dark Yellow; Glucose Urine UA Negative (Negative); Leukocyte Esterase Urine Moderate (2+) (Negative); Nitrite Urine Negative (Negative); Specific Gravity - Urine 1.015 (1.005-1.025); UMIC TRIGGER UACC YES; Urine Blood Moderate (2+) (Negative); Urine Ketones Negative (Negative); Urine Protein 100 (2+) mg/dL (Neg-Trace)
--- NOTE | 2024-01-05 08:03 | PC.NURSE ---
patient arrives through external triage with cc of dysuria for the last 4-5 days, mo states she tried some over the counter remedies with no relief, states she is having some abdominal discomfort now but denies any fevers or chills. patient endorsing malodorous urine and urinary frequency. states she gets UTIs a lot and she thinks she is having another one. patient urine collected by this RN and sent to lab. patient currently resting on stretcher at this time
[2024-01-05 08:05] LABS: Bacteria Urine None Seen (None Seen); Hyaline Casts Urine 0-2 /LPF (0-2); RBC Urine >20 /HPF (0-2); Squamous Epithelial Cell Urine 0-2 /HPF (0-2); UACC Culture Trigger YES; WBC Urine >50 /HPF (0-5)
[2024-01-05 08:36] VITALS: BP 131/72; PULSE 102; RESP 18; TEMP 37.1; O2SAT 98
== END 2024-01-05 08:38 | disposition home or self-care (01) ==
PROVIDERS: Emergency Provider Emergency Medicine; PCP Registered Nurse
DX: N39.0 Urinary tract infection, site not specified (principal); Z79.899 Other long term (current) drug therapy
CPT/HCPCS: 81001; 81003; 87086; 99283; 99284

== ENCOUNTER 2024-03-13 09:55 | Outpatient (REF) | payer MEDICAID, SELFPAY ==
--- NOTE | ~2024-03-13 | XR_ITS ---
EXAMINATION: XR KNEE, LEFT CLINICAL INFORMATION: Chronic pain COMPARISON: Frontal and lateral views over 20 03/12/20 TECHNIQUE: Four views of the left knee. FINDINGS: No fracture, focal lesion or periosteal new bone. There is moderate narrowing of the medial compartment. There is subchondral sclerosis. There are some marginal osteophytes greatest medially. No definite opaque loose body. No significant joint fluid In comparison with 06/20/20 the degenerative change has worsened XR/XR knee LT 4V IMPRESSION: Moderate degenerative change greatest in the medial compartment. Electronically signed by: Lauro José MD 03/17/2024 09:18 PM EDT
== END 2024-03-13 09:56 | disposition home or self-care (01) ==
LOC: HO.HHCX 09:55
PROVIDERS: Visit Provider Registered Nurse
DX: M25.562 Pain in left knee (principal); G89.29 Other chronic pain
CPT/HCPCS: 73564

== ENCOUNTER 2024-09-17 10:09 | Emergency (ER) | payer MEDICAID, SELFPAY ==
[2024-09-17] VITALS (13 sets, daily range): BP systolic 94–149; BP diastolic 55–79; PULSE 78–111; RESP 16–20; TEMP 36.6–36.8; O2SAT 93–95; BMI 34.5; BMI 30.9
--- NOTE | ~2024-09-17 | XR_ITS ---
EXAMINATION: XR CHEST 1 VIEW HISTORY: cp COMPARISON: Comparison is made with the prior examination dated 11/30/2022. FINDINGS: A single AP portable view of the chest performed at is submitted. The lungs are expanded and clear. There is no pleural effusion, pneumothorax, or pulmonary vascular congestion. The heart is normal in size. The bones are intact. XR/XR chest 1V IMPRESSION: No acute cardiopulmonary abnormality. Electronically signed by: Jose D Yeh MD 09/17/2024 10:50 AM [facility]
--- NOTE | 2024-09-17 10:13 | ECG_ITS ---
Test Reason : chest pain Blood Pressure : */* mmHG Vent. Rate : 115 BPM Atrial Rate : 115 BPM P-R Int : 134 ms QRS Dur : 112 ms QT Int : 336 ms P-R-T Axes : 71 41 59 degrees QTcB Int : 464 ms Sinus tachycardia with occasional Premature ventricular complexes Biatrial enlargement Minimal voltage criteria for LVH, may be normal variant ( Alexander product ) Possible Inferior infarct , age undetermined Abnormal ECG When compared with ECG of 30-Nov-2022 08:50, Increase in ventricular rate Referred By: Generic ED Physician Electronically Signed By: HUNTER ARZOLA
[2024-09-17 10:45] LABS: MANUAL DIFF FLAG NO
[2024-09-17 10:47] LABS: Basophils Percent Auto 0.3 % (0-2); Eosinophils Percent Auto 0.3 % (0-4); Hematocrit 45.6 % (37.0-47.0); Hemoglobin 15.5 g/dl (12.0-16.0); Imm Gran Abs Auto 0.04 X10*3/uL (0.00-0.03); Imm Gran Pct Auto 0.3 % (0.0-0.4); Lymphocytes Absolute Auto 2.2 X10*3/uL (1.2-4.9); Lymphocytes Percent Auto 17.1 % (20-40); Mean Corpuscular Hemoglobin 30.1 pg (27.0-33.0); Mean Corpuscular Volume 88.5 fL (80.0-98.0); Mean Platelet Volume 9.4 fL (9.4-12.3); Monocytes Absolute Auto 0.6 X10*3/uL (0.1-1.2); Monocytes Percent Auto 4.9 % (2-11); Neutrophils Absolute Auto 9.8 x10*3/uL (2.0-8.3); Neutrophils Percent Auto 77.1 % (45-73); Platelet Count 296 X10*3/uL (160-400); Red Blood Count 5.15 X10*6/uL (4.20-5.50); Red Cell Distribution Width 12.7 % (11.0-16.0); White Blood Count 12.7 X10*3/uL (4.8-10.8)
[2024-09-17 10:55] LABS: Prothrombin Time 11.3 SEC (10.9-12.4)
[2024-09-17 11:08] LABS: Alanine Aminotransferase 27 U/L (0-31); Albumin Level 4.6 g/dL (3.5-5.0); Alkaline Phosphatase 84 U/L (39-117); Anion Gap 15 (12-20); Aspartate Amino Transferase 48 U/L (5-31); Bilirubin Total 0.6 mg/dL (0.0-1.0); Blood Urea Nitrogen 11 mg/dL (9-16); Calcium 10.8 mg/dL (8.4-10.2); Carbon Dioxide 24 mmol/L (22-29); Chloride 101 mmol/L (96-108); Creatinine Clr Calc Pharmacy 87.7; Estimated Glomerular Filt Rate > 60; Glucose Random 167 mg/dL (60-115); Magnesium 1.7 mg/dL (1.6-2.6); Potassium 3.7 mmol/L (3.3-5.1); Sodium 136 mmol/L (135-145); Total Protein 8.6 g/dL (6.5-8.0)
--- NOTE | 2024-09-17 11:48 | ED.CHESTPAIN ---
HPI - Chest Pain General Chief Complaint: Chest Pain Stated Complaint: chest tingling Time Seen by Provider: 09/17/24 11:30 Source: patient Mode of arrival: ambulatory History of Present Illness HPI narrative: This is a 59 years old female patient presented to the emergency department complaining of chest pain ongoing since about 03:00 o'clock. Pain is described as a tightness no radiation. Patient denies history of hypertension, borderline diabetes, she is a former smoker quit 10 years ago MD complaint: chest pain Onset (ago): hour(s) (7) Timing of current episode: constant Onset: during rest Pain location: substernal Pain radiation: none Quality: tightness Exacerbating factors: nothing Risk Factors Coronary artery disease risk factors: none Thoracic aortic dissection risk factors: none Related Data Home Medications ?Medication ?Instructions ?Recorded ?Confirmed albuterol sulfate 90 mcg/actuation 2 puff inhalation Q8H PRN wheezing 11/30/22 11/30/22 aerosol inhaler (Ventolin HFA) amlodipine 10 mg tablet 10 mg PO DAILY 11/30/22 11/30/22 ascorbic acid (vitamin C) 500 mg 500 mg PO DAILY 11/30/22 11/30/22 tablet chlorthalidone 25 mg tablet 12.5 mg PO DAILY 11/30/22 11/30/22 multivitamin 1 tab PO DAILY 11/30/22 11/30/22 tiotropium bromide 2.5 2 puff inhalation DAILY 11/30/22 11/30/22 mcg/actuation mist for inhalation (Spiriva Respimat) Previous Rx's ?Medication ?Instructions ?Recorded cefuroxime axetil 500 mg tablet 500 mg PO BID #14 tabs 12/02/22 cyclobenzaprine 5 mg tablet 5 mg PO Q8H PRN muscle spasm #10 12/02/23 tabs lidocaine 5 % topical patch 1 patch topical DAILY #15 ea 12/02/23 (Lidoderm) naproxen 500 mg tablet 500 mg PO Q8-12H PRN pain (scale 12/02/23 score 4-6) #20 tabs cefuroxime axetil 250 mg tablet 250 mg PO BID 7 days #14 tabs 01/05/24 Allergies Allergy/AdvReac Type Severity Reaction Status Date / Time Penicillins Allergy Hives Verified 09/17/24 10:22 Review of Systems Constitutional: Constitutional: Reports no additional constitutional complaints PMFSH Past Medical History Attestation statement: The following information was validated with the patient. Medical History COPD (chronic obstructive pulmonary disease) HTN (hypertension) Family History Family History (Updated 09/17/24 @ 12:28 by Yrn Burt MD) Brother Coronary artery disease Social History Social History Housing: Apartment Do you presently have visiting nurse or other home services: No Alcohol intake: never Patient Tobacco Use Status: Never used Tobacco Years Smoked: quit smokinig about a year ago, smoked whole life Advance Directives: No Advance Directives Information Provided: Yes service: No Current occupational status: employed Current occupation: Retail - Right handed Physical Exam Vital Signs: Vital Signs: Last Vital Signs Temp 98.2 F 09/17/24 14:54 Pulse 78 09/17/24 14:54 Resp 20 09/17/24 14:54 BP 118/67 09/17/24 14:54 Pulse Ox 94 09/17/24 14:54 O2 Del Method Room Air 09/17/24 14:54 BMI result Body Mass Index 30.9 No acute distress Const: General: cooperative Nutritional Appearance: average body habitus Orientation/consciousness: oriented to person Limitations: no limitations HEENT: Head: Yes normal to inspection Ears: hearing grossly normal bilaterally General nose exam: Normal external nose present Mouth: Normal oral and palatal mucosa present Throat: Yes posterior oropharynx normal Neck: Neck: Yes normal visual inspection Chest: Chest palpation & inspection: normal inspection of the chest Resp: Effort & Inspection: normal respiratory effort Auscultation: clear to auscultation bilaterally Cardio: Jugular venous distension: no JVD Rate: regular rate Rhythm: regular rhythm GI: Inspection: Yes normal to inspection Palpation (GI): Soft to palpation, nontender and no guarding Auscultation: normal bowel sounds Skin: General skin exam: no rashes or lesions noted Rashes: no rashes Hair: normal Neuro: General: oriented to person Cranial nerves: Yes CN's II-XII intact bilaterally Course Reevaluation(s) Reevaluation #1: Case was discussed with dredgemaster see consult he recommended transfer to [facility] I called [facility] I spoke with the dredgemaster Dr Foster he accepted the patient in transfer Time: 13:11 Reevaluation #2: Ambulance is here to take the patient to [facility] heparin infusing Time: 15:03 Medications Administered Generic Name Dose Route Start Last Admin Trade Name Freq PRN Reason Stop Dose Admin Heparin Sodium/Sodium Chloride 25,000 unit in 250 mls @ 0 mls/hr 09/17/24 12:30 09/17/24 13:37 Heparin Sodium,Porcine/1/2ns IVCONT 12 units/kg/hr .Q0M TONY 9.49 mls/hr Administration Protocol Per Protocol Nitroglycerin 0.4 mg 09/17/24 11:43 09/17/24 12:23 Nitroglycerin 0.4 Mg Tab.Subl SUBLINGUAL 0.4 mg Q5MX3 PRN Administration Chest Pain Discontinued Medications Generic Name Dose Route Start Last Admin Trade Name Freq PRN Reason Stop Dose Admin Aspirin 324 mg 09/17/24 11:40 09/17/24 11:50 Aspirin 81 Mg Tab.Chew PO 09/17/24 11:41 324 mg ONCE ONE Administration Atorvastatin Calcium 80 mg 09/17/24 12:25 09/17/24 12:48 Atorvastatin Calcium 80 Mg Tablet PO 09/17/24 12:26 80 mg ONCE ONE Administration Heparin Sodium (Porcine) 4,000 unit 09/17/24 12:45 09/17/24 13:36 Heparin Sodium,Porcine 5,000 Unit/Ml Vial IVPUSH 09/17/24 12:46 4,000 unit ONCE ONE Administration Sodium Chloride 1,000 mls @ 999 mls/hr 09/17/24 12:15 09/17/24 12:08 Ns IV 09/17/24 13:15 999 mls/hr .Q1H1M TONY Administration Metoprolol Tartrate 50 mg 09/17/24 12:25 09/17/24 12:48 Metoprolol Tartrate 50 Mg Tablet PO 09/17/24 12:26 50 mg ONCE ONE Administration Protocol Medical Decision Making Medical Decision Making [facility] Narrative: Patient presented with chest pain we will get labs EKG and labs Differential Diagnosis Differential Diagnoses: The differential diagnosis associated with the presentation includes ACS/STEMI/noncardiac chest pain Admission/Observation Consideration of admission/observation: Escalation of care including admission/observation considered Consult Healthcare Provider Management of the patient was discussed with: Ladle Repairman Lab Data MDM Lab Attestation statement: I reviewed the patient's lab results. 09/17/24 12:44 09/17/24 10:37 Labs: Lab Results 09/17/24 09/17/24 09/17/24 Range/Units 10:37 11:45 12:44 WBC 12.7 H 5.1 (4.8-10.8) X10*3/uL RBC 5.15 D 4.89 (4.20-5.50) X10*6/uL Hgb 15.5 D 14.7 (12.0-16.0) g/dl Hct 45.6 D 43.9 (37.0-47.0) % MCV 88.5 89.8 (80.0-98.0) fL MCH 30.1 30.1 (27.0-33.0) pg MCHC 34.0 33.5 (31.0-35.0) g/dl RDW 12.7 12.7 (11.0-16.0) % Plt Count 296 D 187 D (160-400) X10*3/uL MPV 9.4 9.7 (9.4-12.3) fL Immature Gran % (Auto) 0.3 (0.0-0.4) % Neut % (Auto) 77.1 H (45-73) % Lymph % (Auto) 17.1 L (20-40) % Cobb % (Auto) 4.9 (2-11) % Eos % (Auto) 0.3 (0-4) % Baso % (Auto) 0.3 (0-2) % Lymph # (Auto) 2.2 (1.2-4.9) X10*3/uL Cobb # (Auto) 0.6 (0.1-1.2) X10*3/uL Eos # (Auto) 0.0 (0.0-0.4) X10*3/uL Baso # (Auto) 0.0 (0.0-0.2) X10*3/uL Abs Immat Gran (auto) 0.04 H (0.00-0.03) X10*3/uL Absolute Neuts (auto) 9.8 H (2.0-8.3) x10*3/uL Absolute Nucleated RBC 0.000 0.000 (0.0-0.012) X10*3/uL Nucleated RBC % (auto) 0.0 0.0 (0.0-0.2) /100WBC PT 11.3 (10.9-12.4) SEC INR 1.0 (0.9-1.1) APTT 27.5 (26.0-36.8) SEC aPTT Heparin Protocol Cancelled Sodium 136 (135-145) mmol/L Potassium 3.7 (3.3-5.1) mmol/L Chloride 101 (96-108) mmol/L Carbon Dioxide 24 (22-29) mmol/L Anion Gap 15 (12-20) BUN 11 (9-16) mg/dL Creatinine 0.71 (0.5-1.4) mg/dL Estim Creat Clear Calc 87.7 Estimated GFR > 60 Random Glucose 167 H (60-115) mg/dL Calcium 10.8 H D (8.4-10.2) mg/dL Magnesium 1.7 (1.6-2.6) mg/dL Total Bilirubin 0.6 (0.0-1.0) mg/dL AST 48 H (5-31) U/L ALT 27 (0-31) U/L Alkaline Phosphatase 84 (39-117) U/L Troponin I High Sens 959.0 H* D 1279.2 H* (<3.5-17.0) ng/L Total Protein 8.6 H (6.5-8.0) g/dL Albumin 4.6 (3.5-5.0) g/dL Urine Color Yellow Urine Appearance Clear Urine pH 6.0 (5.0-9.0) Ur Specific [place] 1.020 (1.005-1.025) Urine Protein Negative (Neg-Trace) mg/dL Urine Glucose (UA) Negative (Negative) mg/dL Urine Ketones Negative (Negative) mg/dL Urine Blood Negative (Negative) Urine Nitrite Negative (Negative) Ur Leukocyte Esterase Negative (Negative) Urine Opiates Screen Not Detected (Not Detect) Ur Buprenorphine Scrn Not Detected (Not Detect) ng/mL Ur Oxycodone Screen Not Detected (Not Detect) ng/mL Urine Methadone Screen Not Detected (Not Detect) ng/mL Urine Fentanyl Screen Not Detected (Not Detect) Ur Barbiturates Screen Not Detected (Not Detect) Ur Phencyclidine Scrn Not Detected (Not Detect) Ur Amphetamines Screen Not Detected (Not Detect) U Benzodiazepines Scrn Not Detected (Not Detect) Urine Cocaine Screen Not Detected (Not Detect) U Marijuana (THC) Screen Not Detected (Not Detect) Independent Interpretation I performed an independent interpretation of an: EKG Interpretation: Sinus tachycardia intraventricular conduction delay no ST elevation Radiology Impression Discussion of test interpretation with radiology: I have reviewed the radiologist's reading. Critical Care Time Critical Care Time Critical Care Time: Yes Total Critical Care Time: 60 Attestation: IV heparin/speaking with dredgemaster/arranging cath Discharge Plan Discharge Clinical Impression: Non-STEMI (non-ST elevated myocardial infarction), ACS (acute coronary syndrome) Patient Disposition: [facility] Transfer Details: [facility] [place] Prescriptions: No Action cefuroxime axetil 250 mg tablet 250 mg PO BID 7 Days Qty: 14 0RF chlorthalidone 25 mg tablet 12.5 mg PO DAILY amlodipine 10 mg tablet 10 mg PO DAILY albuterol sulfate [Ventolin HFA] 90 mcg/actuation HFA aerosol inhaler 2 puff INHALATION Q8H PRN (Reason: wheezing) Spiriva Respimat 2.5 mcg/actuation mist 2 puff INHALATION DAILY multivitamin Tablet 1 tab PO DAILY ascorbic acid (vitamin C) 500 mg Tablet 500 mg PO DAILY cefuroxime axetil 500 mg tablet 500 mg PO BID Qty: 14 0RF cyclobenzaprine 5 mg tablet 5 mg PO Q8H PRN (Reason: muscle spasm) Qty: 10 0RF lidocaine [Lidoderm] 5 % adhesive patch,medicated 1 patch topical DAILY Qty: 15 0RF Rx Instructions: leave on most painful area for up to 12 hrs naproxen 500 mg tablet 500 mg PO Q8-12H PRN (Reason: pain (scale score 4-6)) Qty: 20 0RF Print Language: Yemeni
[2024-09-17] MEDS: Aspirin 81 MG TAB.CHEW 324 MG PO (11:50)
[2024-09-17] MEDS: Nitroglycerin 0.4 MG TAB.SUBL SUBLINGUAL ×2 (11:50→12:23)
[2024-09-17 11:54] LABS: Appearance Urine Clear; Color Urine Yellow; Glucose Urine UA Negative (Negative); Leukocyte Esterase Urine Negative (Negative); Nitrite Urine Negative (Negative); Urine Blood Negative (Negative); Urine Ketones Negative (Negative); Urine Protein Negative (Neg-Trace)
[2024-09-17 12:05] LABS: Amphetamine Screen Urine Not Detected (Not Detect); Barbiturates, Urine Not Detected (Not Detect); Benzodiazepines Screen Urine Not Detected (Not Detect); Buprenorphine Scr Not Detected (Not Detect); Cannabinoid Screen Urine Not Detected (Not Detect); Cocaine Screen Urine Not Detected (Not Detect); Fentanyl, urine Not Detected (Not Detect); Methadone Screen, Urine Not Detected (Not Detect); Opiate Screen Urine Not Detected (Not Detect); Oxycodone Screen Urine Not Detected (Not Detect); Phencyclidine Screen Urine Not Detected (Not Detect)
[2024-09-17] MEDS: 0.9 % Sodium Chloride 1,000 ML 999 ML IV (12:08)
--- NOTE | 2024-09-17 12:26 | P.CONCA_ITS ---
History of Present Illness History of Present Illness Date of Service: 09/17/24 Chief complaint: chest tingling Narrative: This is a cardiology consultation regarding chest pain. Patient does not have any known cardiac issues. She does not have any coronary disease or myocardial infarction or cardiomyopathy. She presents with chest tightness that started overnight. She still has low-grade chest tightness around 3/10 or so. However, she states she is quite comfortable. Otherwise, few weeks back, she apparently had some other symptoms like nausea, diarrhea and cough but she feels today's event is completely different. She has not had this before. Troponins have been checked and they are elevated suggestive of non ST elevation myocardial infarction. Review of Systems 2 Review of Systems: Yes all other systems are reviewed and are negative Constitutional: Constitutional: Reports as per HPI and Reports no additional constitutional complaints Eyes: Eyes: Reports as per HPI and Denies no additional eye complaints ENT: Denies system reviewed and no additional complaints, except as documented and Reports as per HPI Cardiovascular: Cardiovascular: Reports as per HPI, Reports no additional cardiovascular complaints, Denies acrocyanosis, Denies cool extremities, Reports chest pain, Denies leg edema, Denies lightheadedness, Denies palpitations (A) and Denies dyspnea Respiratory: Respiratory: Reports as per HPI, Denies no additional respiratory complaints and Denies dyspnea Gastrointestinal: Gastrointestinal: Reports as per HPI and Denies no additional gastrointestinal complaints Genitourinary: Genitourinary: Reports as per HPI Musculoskeletal: Musculoskeletal: Reports no additional musculoskeletal complaints and Reports as per HPI Integumentary/Breasts: Skin/Breast: Reports system reviewed and no additional complaints, except as docu Neurologic: Reports system reviewed and no additional complaints, except as documented and Reports as per HPI Psychiatric: Psychiatric: Reports no additional psychiatric complaints and Reports as per HPI Endocrine: Endocrine: Reports no additional endocrine complaints, Reports as per HPI and Denies palpitations (A) Hematologic/Lymphatic: Hematologic/Lymphatic: Reports no additional hematologic/lymphatic complaints and Reports as per HPI Allergic/Immunologic: Allergic/Immunologic: Reports no additional allergic/immunologic complaints and Reports as per HPI [facility] Past Medical History Medical History COPD (chronic obstructive pulmonary disease) HTN (hypertension) Family History Family History (Updated 09/17/24 @ 12:28 by Yrn Burt MD) Brother Coronary artery disease Social History Social History Housing: Apartment Do you presently have visiting nurse or other home services: No Alcohol intake: never Patient Tobacco Use Status: Never used Tobacco Years Smoked: quit smokinig about a year ago, smoked whole life Advance Directives: No Advance Directives Information Provided: Yes service: No Current occupational status: employed Current occupation: Retail - Right [employer] Meds Allergies Allergy/AdvReac Type Severity Reaction Status Date / Time Penicillins Allergy Hives Verified 09/17/24 10:22 Active Medications: Current Medications Heparin Sodium (Porcine) (Heparin Sodium,Porcine 5,000 Unit/Ml Vial) 3,200 unit 40 unit/kg (3200 unit) IVPUSH PROTOCOL BOLUS PRN; Protocol PRN Reason: 40 unit/kg - Heparin Protocol Heparin Sodium (Porcine) (Heparin Sodium,Porcine 5,000 Unit/Ml Vial) 6,300 unit 80 unit/kg (6300 unit) IVPUSH PROTOCOL BOLUS PRN; Protocol PRN Reason: 80 unit/kg - Heparin Protocol Sodium Chloride (Ns) 1,000 mls @ 999 mls/hr IV .Q1H1M TONY Stop: 09/17/24 13:15 Last Admin: 09/17/24 12:08 Dose: 999 mls/hr Heparin Sodium/Sodium Chloride (Heparin Sodium,Porcine/1/2ns) 25,000 unit in 250 mls @ 0 mls/hr IVCONT .Q0M TONY; Protocol Nitroglycerin (Nitroglycerin 0.4 Mg Tab.Subl) 0.4 mg SUBLINGUAL Q5MX3 PRN PRN Reason: Chest Pain Last Admin: 09/17/24 12:23 Dose: 0.4 mg Home Medications ?Medication ?Instructions ?Recorded ?Confirmed ?Last Taken ?Type albuterol sulfate 90 mcg/actuation 2 puff inhalation Q8H PRN wheezing 11/30/22 11/30/22 Unknown History aerosol inhaler (Ventolin HFA) amlodipine 10 mg tablet 10 mg PO DAILY 11/30/22 11/30/22 11/29/22 History ascorbic acid (vitamin C) 500 mg 500 mg PO DAILY 11/30/22 11/30/22 11/29/22 History tablet chlorthalidone 25 mg tablet 12.5 mg PO DAILY 11/30/22 11/30/22 11/29/22 History multivitamin 1 tab PO DAILY 11/30/22 11/30/22 11/29/22 History tiotropium bromide 2.5 2 puff inhalation DAILY 11/30/22 11/30/22 11/29/22 History mcg/actuation mist for inhalation (Spiriva Respimat) Physical Exam 2 Vital Signs: Vital Signs: Last Vital Signs Temp 98 F 09/17/24 10:17 Pulse 99 09/17/24 12:23 Resp 17 09/17/24 12:12 BP 132/70 09/17/24 12:23 Pulse Ox 95 09/17/24 12:12 O2 Del Method Room Air 09/17/24 12:12 BMI result Body Mass Index 30.9 Const: General: comfortable and no acute distress O rientation/consciousness: patient oriented x3 HEENT: Other: Unremarkable Head: Yes normal to inspection Neck: Neck: Yes normal visual inspection Chest: Chest palpation & inspection: normal inspection of the chest Resp: Auscultation: clear to auscultation bilaterally Cardio: Palpation: normal PMI Heart sounds: S1 normal heart sound present, S2 normal heart sound present, no gallops, no murmurs and no rubs GI: Palpation (GI): Soft to palpation Back/Spine/Pelvis: Other: unremarkable Skin: General skin exam: no rashes or lesions noted Neuro: General: patient oriented x3 Extrem: General: Yes normal to inspection Psych: Mental Status: mental status grossly normal Objective Labs and Meds 09/17/24 10:37 09/17/24 10:37 Lab results: Laboratory Results - last 24 hr 09/17/24 09/17/24 10:37 11:45 WBC 12.7 H RBC 5.15 D Hgb 15.5 D Hct 45.6 D MCV 88.5 MCH 30.1 MCHC 34.0 RDW 12.7 Plt Count 296 D MPV 9.4 Immature Gran % (Auto) 0.3 Neut % (Auto) 77.1 H Lymph % (Auto) 17.1 L [place] % (Auto) 4.9 Eos % (Auto) 0.3 Baso % (Auto) 0.3 Lymph # (Auto) 2.2 [place] # (Auto) 0.6 Eos # (Auto) 0.0 Baso # (Auto) 0.0 Abs Immat Gran (auto) 0.04 H Absolute Neuts (auto) 9.8 H Absolute Nucleated RBC 0.000 Nucleated RBC % (auto) 0.0 PT 11.3 INR 1.0 Sodium 136 Potassium 3.7 Chloride 101 Carbon Dioxide 24 Anion Gap 15 BUN 11 Creatinine 0.71 Estim Creat Clear Calc 87.7 Estimated GFR > 60 Random Glucose 167 H Calcium 10.8 H D Magnesium 1.7 Total Bilirubin 0.6 AST 48 H ALT 27 Alkaline Phosphatase 84 Troponin I High Sens 959.0 H* D Total Protein 8.6 H Albumin 4.6 Urine Color Yellow Urine Appearance Clear Urine pH 6.0 Ur Specific [place] 1.020 Urine Protein Negative Urine Glucose (UA) Negative Urine Ketones Negative Urine Blood Negative Urine Nitrite Negative Ur Leukocyte Esterase Negative Urine Opiates Screen Not Detected Ur Buprenorphine Scrn Not Detected Ur Oxycodone Screen Not Detected Urine Methadone Screen Not Detected Urine Fentanyl Screen Not Detected Ur Barbiturates Screen Not Detected Ur Phencyclidine Scrn Not Detected Ur Amphetamines Screen Not Detected U Benzodiazepines Scrn Not Detected Urine Cocaine Screen Not Detected U Marijuana (THC) Screen Not Detected ECG Interpretation: EKG shows sinus tachycardia at 115/Min; biatrial enlargement; nonspecific intraventricular conduction defect; nonspecific ST-T changes; normal ID and corrected QT. Imaging Radiologist's impression: Impressions Chest X-Ray 09/17/24 10:40 IMPRESSION: No acute cardiopulmonary abnormality. Electronically signed by: Jose D Yeh MD 09/17/2024 10:[address] [facility] Assessment and Plan (1) NSTEMI (non-ST elevated myocardial infarction): Status: Acute Plan High sensitivity troponin elevated at 959. Overall, patient's symptoms, biomarker elevation, suggestive of non ST elevation myocardial infarction. Treat with IV heparin drip. Aspirin. Nitrates. Vpso-dytydtyf-Iksussjlmp 50 mg p.o. now as she also has some tachycardia. High-dose statins. Will need a diagnostic angiogram. Will need transferred to [facility] or any other tertiary care center where this can be performed, based on bed availability. Discussed with patient as well as ER physician Dr. Ovalles. Procedures Date of Service Date of Service: 09/17/24
--- NOTE | 2024-09-17 12:44 | PC.NURSE ---
Repeat troponin, PTT/PTTHD, and CBC drawn and sent for analysis.
[2024-09-17] MEDS: Atorvastatin Calcium 80 MG TABLET PO (12:48)
[2024-09-17] MEDS: Metoprolol Tartrate 50 MG TABLET PO (12:48)
[2024-09-17 12:49] LABS: Hematocrit 43.9 % (37.0-47.0); Hemoglobin 14.7 g/dl (12.0-16.0); Mean Corpuscular HGB Conc 33.5 g/dl (31.0-35.0); Mean Corpuscular Hemoglobin 30.1 pg (27.0-33.0); Mean Corpuscular Volume 89.8 fL (80.0-98.0); Mean Platelet Volume 9.7 fL (9.4-12.3); Platelet Count 187 X10*3/uL (160-400); Red Blood Count 4.89 X10*6/uL (4.20-5.50); Red Cell Distribution Width 12.7 % (11.0-16.0); White Blood Count 5.1 X10*3/uL (4.8-10.8)
[2024-09-17 13:13] LABS: Partial Thromboplastin Time 27.5 SEC (26.0-36.8)
[2024-09-17 13:17] LABS: Troponin-I High Sensitivity 1279.2 ng/L (<3.5-17.0)
[2024-09-17] MEDS: Heparin Sodium,Porcine 5,000 UNIT/ML VIAL 4000 UNIT IVPUSH (13:36)
[2024-09-17] MEDS: Heparin Sodium,Porcine/1/2NS 25,000 UNIT/250 ML IV.SOLN 9.49 UNIT IVCONT (13:37)
--- OUTSIDE RECORDS SUMMARY | 2024-09-17 14:31 | XMS_ITS | Encounter Summary ---
Author Organization [employer] Address [address] [place] [address] Care Team Providers Care Trim Mounter Name Role Phone Miguel Janet [employer] SAL[employer] Primary Care Provider [phone] Encounter Details Date Type Department Care Team (Late st Contact Info) Description 04/11/[address] [facility] [address] [place] [address] ProviderCong MD Social History Tobacco Use Types Packs/Day Years Used Date Smoking Tobacco: Former Cigarettes Smokeless Tobacco: Never Alcohol Use Standard Drinks/Week Comments Never 0 (1 standard drink = 0.6 oz pur e alcohol) Depression Answer Date Recorded Patient Health Questionnaire-9 Score 6 03/13/2024 Patient Health Questionnaire-9 Score 6 03/13/2024 Last PHQ-9: Questionnaire Data Not on file 0 03/13/2024 Housing Stability Answer Date Recorded What is your housing situation today? I have guidoursula dickey 03/13/[address] you li ve. Do you have problems with any of the following? None of the above 03/13/2024 Food Insecurity Answer Date Recorded Within the past 12 months, y ou worried that your food would run out before you got money to buy more: Never True 03/13/2024 Within the past 12 months,th e food you bought just didn't last and you didn't have enough money to get more: Never True Transportation Answer Date Recorded In the past 12 months, has l ack of transportation kept you from medical appts, meetings, work or from getting things needed for daily living? No 03/13/2024 Utilities Answer Date Recorded In the past 12 months, has t he electric, gas, oil or water [employer] threatened to shut off services in your home? No 03/13/2024 Depression Answer Date Recorded Patient Health Questionnaire-2 Score 0 03/13/2024 Internet Access Answer Date Recorded Internet Access Q1 Yes 03/25/2024 Internet Access Q2 Not on file 03/25/2024 Comments Unknown Sex and Gender Information Value Date Recorded Sex Assigned at Female 05/23/2022 10:15 AM EDT Legal Sex Female 10:15 AM EDT Gender Identity Female 05/23/2022 10:15 AM EDT Sexual Orientation Straight 05/23/2022 10 :15 AM EDT documented as of this encounter Plan of Treatment Not on file documented as of this encounter Procedures Procedure Name Priority Date/Time Associated Diagnosis Comments PULMONARY FUNCTION TESTING Routine 03/29/2022 3:33 PM EDT documented in this encounter Results * Pulmonary function testing (03/29/2022 3:33 PM EDT) us Historical Provider MD PFT ORDERABLES Final Res ult documented in this encounter Visit Diagnoses Not on filedocumented in this encounter Additional Health Concerns Assessment Noted Time PHQ-9 Depression Total Score: 6 03/13/20 24 8:49 AM EDT documented as of this encounter Care Teams Trim Mounter Relationship Specialty Start Date End Date Janet Rivera FNP [address] [place] [id number] PCP - General Family Medicine 03/18/22 documented as of this encounter
--- OUTSIDE RECORDS SUMMARY | 2024-09-17 14:31 | XMS_ITS | Encounter Summary ---
Author Organization [employer] Address [address] [facility] [address] [place] [address] Care Team Providers Care Cs Associate Name Role Phone Miguel [facility] Primary Care Provider [phone] Encounter Details Date Type Department Care Team (Late st Contact Info) Description 09/17/2024 Orders Only GENERIC EXTERNAL DATA DEPARTMENT Provider, Generic External Data Social History Tobacco Use Types Packs/Day Years [...] is your housing situation today? I have guido dickey 03/13/[address] you [...] t he electric, gas, oil or water company threatened to shut off services in your [...] Procedure Name Priority Date/Time Associated Diagnosis Comments HIGH SENSITIVITY TROPONIN I Routine 09/17/2024 12:44 PM EST CBC Routine 09/17/2024 12:44 PM EST DRUG MONITOR, PANEL 1, SCREEN, URINE Routine 09/17/2024 11:45 AM EST URINALYSIS WITH REFLEX MICROSCOPIC Routine 09/17/2024 11:45 AM EST XR CHEST 1 VIEW Routine 09/17/2024 10:40 AM EST HIGH SENSITIVITY TROPONIN I Routine 09/17/2024 10:37 AM EST CBC WITH AUTO DIFFERENTIAL Routine 09/17/2024 10:37 AM EST PROTHROMBIN TIME-INR Routine 09/17/2024 10:37 AM EST MAGNESIUM Routine 09/17/2024 10:37 AM EST COMPREHENSIVE METABOLIC PANEL Routine 09/17/2024 10:37 AM EST documented in this encounter Results * (ABNORMAL) High Sensitivity Troponin I (09/17/2024 12:44 PM EST) TROPONIN I HIGH SENSITIVITY 1,279.2(H H) <3.5 - 17.0 ng/L [facility] Comment:Critical value for T ROPONIN: Results called to and readback by: LOGAN Person calling: MIKHAILRafael Date: 09-17-24 Time:1316The [place] high sensitivity Troponin-I results should beused in conjunction with other diagnostic information suchas ECG, clinical observations and information, and patientsymptoms to aid in the diagnosis of DC. 09/17/2024 12:4 4 PM EST 09/17/2024 12:46 PM EST us Generic External Data Provider LAB BLOOD ORDERAB LES Final Result [facility] [address] [place] [address] [phone] * CBC (09/17/2024 12:44 PM EST) White Blood Count 5.1 4.8 - 10.8 X10*3/uL [facility] Red Blood Count 4.89 4.20 - 5.50 X10*6/uL [facility] Hemoglobin 14.7 12.0 - 16.0 g/dl [facility] Hematocrit 43.9 37.0 - 47.0 % [facility] Mean Corpuscular Volume 89.8 80.0 - 98.0 fL [facility] Mean Corpuscular Hemoglobin 30.1 27.0 - 33.0 pg [facility] Mean Corpuscular HGB Conc 33.5 31.0 - 35.0 g/dl [facility] Red Cell Distribution Width 12.7 11.0 - 16.0 % [facility] Platelet Count 187 160 - 400 X10*3/uL [facility] Mean Platelet Volume 9.7 9.4 - 12.3 fL [facility] NRBC Pct Auto 0.0 0.0 - 0.2 /100WBC [facility] NRBC Abs Auto 0.000 0.0 - 0.012 X10*3/uL [facility] 09/17/2024 12:4 4 PM EST 09/17/2024 12:46 PM EST us Generic External Data Provider LAB BLOOD ORDERAB LES Final Result [facility] [address] [place] [phone] [phone] * Drug Monitoring, Panel 1, Screen, Urine (09/17/2024 11:45 AM EST) Opiate Screen Urine Not Detected Not Detect [facility] Comment:Opiate cut-off is 30 0 ng/mL.Positive results are unconfirmed and should not be used fornon-medical purposes. Barbiturates, Urine Not Detected Not Detect [facility] Comment:Barbiturate cut-off is 200 ng/mL.Positive results are unconfirmed and should not be used fornon-medical purposes. Phencyclidine Screen Urine Not Detected Not Detect [facility] Comment:Phencyclidine cut-of f is 25 ng/mL.Positive results are unconfirmed and should not be used fornon-medical purposes. Amphetamine Screen Urine Not Detected Not Detect [facility] Comment:Amphetamine cut-off is 1000 ng/mL.Positive results are unconfirmed and should not be used fornon-medical purposes. Benzodiazepines Screen Urine Not Detected Not Detect [facility] Comment:Benzodiazepine cut-o ff is 200 ng/mL.Positive results are unconfirmed and should not be used fornon-medical purposes. Cocaine Screen Urine Not Detected Not Detect [facility] Comment:Cocaine cut-off is 3 00 ng/mL.Positive results are unconfirmed and should not be used fornon-medical purposes. Cannabinoid Screen Urine Not Detected Not Detect [facility] Comment:Cannabinoid cut-off is 50 ng/mL.Positive results are unconfirmed and should not be used fornon-medical purposes. Methadone Screen, Urine Not Detected Not Detect ng/mL [facility] Comment:Methadone cut-off is 300 ng/mL.Positive results are unconfirmed and should not be used fornon-medical purposes. FENTANYL URINE Not Detected Not Detect [facility] Comment:Fentanyl cut-off is 1 ng/mL.Positive results are unconfirmed and should not be used fornon-medical purposes. Oxycodone Urine Screen Not Detected Not Detect ng/mL [facility] Comment:Oxycodone cut-off is 100 ng/mL.Positive results are unconfirmed and should not be used fornon-medical purposes. Buprenorphine Screen Not Detected Not Detect ng/mL [facility] Comment:Buprenorphine cut-of f is 5 ng/mL.Positive results are unconfirmed and should not be used fornon-medical purposes. 09/17/2024 11:4 5 AM EST 09/17/2024 11:50 AM EST Generic External Data Provider LAB URINE ORDERAB LES Final Result Performing Organization Address City/[facility]/ZIP Co de Phone Number [facility] [address] [place] [phone] * Urinalysis w/reflex microscopic (09/17/2024 11:45 AM EST) Color Urine Yellow [facility] Appearance Urine Clear [facility] PH 6.0 5.0 - 9.0 [facility] Glucose Urine UA Negative Negative mg/dL [facility] Urine Blood Negative Negative [facility] Specific [place] - Urine 1.020 1.005 - 1.025 [facility] Urine Protein Negative Neg-Trace mg/dL [facility] Urine Ketones Negative Negative mg/dL [facility] Nitrite Urine Negative Negative [facility] Leukocyte Esterase Urine Negative Negative [facility] 09/17/2024 11:4 5 AM EST 09/17/2024 11:50 AM EST Narrative [facility] - 09/17/2024 11:56 AM EST [id number], Clean Catch Generic External Data Provider LAB URINE ORDERAB LES Final Result Performing Organization Address [facility]/ZIP Co de Phone Number [facility] [address] [place] [phone] * XR Chest 1 View (09/17/2024 10:40 AM EST) Anatomical Region Laterality Modality Chest Radiographic Sejal ging 09/17/2024 10:4 0 AM EST Narrative 09/17/2024 10:53 AM EST ? [facility] ?[address] ?[place] [address] ?XRay Report ? Signed ? Patient: Laramee,Kayli L ?MR#: [id number] ?? [id number] ? : 1965 ?Acct:[id number] ? Age/Sex: 59 / F ?ADM Date: 09/17/24 ? Loc: HO.ED ? Attending Dr: ? Ordering Physician: Generic ED Physician ?? Date of Service: 09/17/24 ?? Procedure(s): XR chest 1V ?? Accession Number(s): [id number] ? cc: [facility] ? EXAMINATION: ??XR CHEST 1 VIEW ? HISTORY: cp ? COMPARISON: Comparison is made with the prior examination dated ?? 11/30/2022. ? FINDINGS: ??A single AP portable view of the chest performed at is ?? submitted. The lungs are expanded and clear. ??There is no pleural ?? effusion, pneumothorax, or pulmonary vascular congestion. ??The heart is ?? normal in size. ??The bones are intact. ? XR/XR chest 1V ?? IMPRESSION: ?? No acute cardiopulmonary abnormality. ? Electronically signed by: ??Jose D Yeh MD ??09/17/2024 10:50 AM EST ?? RP ? Dictated By: ?Jose D Yeh MD ? Signed By: ?<Electronically signed by Jose D Yeh MD in OV> ?09/17/24 1050 ? DD/ 1040 ? TD/TT: 09/17/24 1042 ? Manager Of Housekeeping: ? Procedure Note Alvaro, Image - 09/17/[address] [address] XRay Report Signed Patient: Kayli White LMR#: [id number] : 1965Acct:[id number] Age/Sex: 59 / FADM Date: 09/17/24 Loc: HO.ED Attending Dr: Ordering Physician: Generic ED Physician Date of Service: 09/17/24 Procedure(s): XR chest 1V Accession Number(s): [id number] cc: Generic ED Physician; Janet Rivera [employer]ERV[employer] ENGINEERING ADVISOR EXAMINATION: XR CHEST 1 VIEW HISTORY: cp COMPARISON: Comparison is made with the prior examination dated 11/30/2022. FINDINGS: A single AP portable view of the chest performed at is submitted. The lungs are expanded and clear. There is no pleural effusion, pneumothorax, or pulmonary vascular congestion. The heart is normal in size. The bones are intact. XR/XR chest 1V IMPRESSION: No acute cardiopulmonary abnormality. Electronically signed by: Jose D Yeh MD 09/17/2024 10:50 AM EST Dictated By: Jose D Yeh MD Signed By: <Electronically signed by Jose D Yeh MD in OV> 09/17/24 1050 DD/ 1040 TD/TT: 09/17/24 1042 Manager Of Housekeeping: [facility] External Provider IMG XR PROCEDURES Final Result * (ABNORMAL) High Sensitivity Troponin I (09/17/2024 10:37 AM EST) TROPONIN I HIGH SENSITIVITY 959.0(HH) <3.5 - 17.0 ng/L [facility] Comment:Critical value for H S-TNL Results called to and read zenaida DUMONT Person calling: RAYNA Date: 09/17/24Time:1118The [place] high sensitivity Troponin-I results should beused in conjunction with other diagnostic information suchas ECG, clinical observations and information, and patientsymptoms to aid in the diagnosis of DC. 09/17/2024 10:3 7 AM EST 09/17/2024 10:44 AM EST Generic External Data Provider LAB BLOOD ORDERAB LES Final Result [facility] [address] [place] [phone] * Magnesium (09/17/2024 10:37 AM EST) Magnesium 1.7 1.6 - 2.6 mg/dL [facility] 09/17/2024 10:3 7 AM EST 09/17/2024 10:44 AM EST us Generic External Data Provider LAB BLOOD ORDERAB LES Final Result [facility] [address] [place] [phone] [phone] * (ABNORMAL) Comprehensive Metabolic Panel (09/17/2024 10:37 AM EST) Sodium 136 135 - 145 mmol/L [facility] Potassium 3.7 3.3 - 5.1 mmol/L [facility] Chloride 101 96 - 108 mmol/L [facility] Carbon Dioxide 24 22 - 29 mmol/L [facility] Anion Gap 15 12 - 20 [facility] Urea Nitrogen (BUN) 11 9 - 16 mg/dL [facility] Creatinine, Serum 0.71 0.5 - 1.4 mg/dL [facility] Creatinine Clr Calc Pharmacy 87.7 [facility] Comment:Provided height and weight: 160.02 cm,88.451 kg.eGFR (calculated from the MDRD study equation) and eCrCl(calculated from the Cockcroft-Gault equation) are based ondifferent parameters and may not yield comparable results.If eCrCl result is absurd, please check patient'sheight/weight. Estimated Glomerular Filt Rate >60 [facility] Comment:Chronic Kidney Disea se: Estimated GFR < 60 mL/min/1.92o7Vntmsl Kidney Disease: Estimated GFR < 15 mL/min/1.73m2 Glucose 167(H) 60 - 115 mg/dL [facility] Calcium 10.8(H) 8.4 - 10.2 mg/dL [facility] Bilirubin, Total 0.6 0.0 - 1.0 mg/dL [facility] Aspartate Amino Transferase 48(H) 5 - 31 U/L [facility] Alanine Aminotransferase 27 0 - 31 U/L [facility] Total Protein 8.6(H) 6.5 - 8.0 g/dL [facility] Albumin Level 4.6 3.5 - 5.0 g/dL [facility] Alkaline Phosphatase 84 39 - 117 U/L [facility] 09/17/2024 10:3 7 AM EST 09/17/2024 10:44 AM EST Generic External Data Provider LAB BLOOD ORDERAB LES Final Result Performing Organization Address [facility] Co de Phone Number [facility] [address] [place] [phone] * Prothrombin Time-INR (09/17/2024 10:37 AM EST) Prothrombin Time 11.3 10.9 - 12.4 SEC [facility] INTERNATIONAL NORM RATIO 1.0 0.9 - 1.1 [facility] Comment:INTERNATIONAL NORMAL IZED RATIO (INR) REFERENCE RANGES Reference RangeFor patients not on anticoagulant therapy: 0.9 - 1.1INR ranges for oral anticoagulanttherapy:For prevention and treatment of venous thrombosis and pulmonary embolism: 2.0 - 3.0For acute myocardial infarction with aspirin therapy: 2.0 - 3.0For acute myocardial infarction without aspirin therapy: 3.0 - 4.0For patients with mechanical prosthetic heart valves: 2.5 - 3.5 09/17/2024 10:3 7 AM EST 09/17/2024 10:44 AM EST [employer] External Data Provider LAB BLOOD ORDERAB LES Final Result Performing Organization Address [facility] de Phone Number [facility] [address] [place] [phone] * (ABNORMAL) CBC auto differential (09/17/2024 10:37 AM EST) White Blood Count 12.7(H) 4.8 - 10.8 X10*3/uL [facility] Red Blood Count 5.15 4.20 - 5.50 X10*6/uL [facility] Hemoglobin 15.5 12.0 - 16.0 g/dl [facility] Hematocrit 45.6 37.0 - 47.0 % [facility] Mean Corpuscular Volume 88.5 80.0 - 98.0 fL [facility] Mean Corpuscular Hemoglobin 30.1 27.0 - 33.0 pg [facility] Mean Corpuscular HGB Conc 34.0 31.0 - 35.0 g/dl [facility] Red Cell Distribution Width 12.7 11.0 - 16.0 % [facility] Platelet Count 296 160 - 400 X10*3/uL [facility] Mean Platelet Volume 9.4 9.4 - 12.3 fL [facility] Neutrophils Percent Auto 77.1(H) 45 - 73 % [facility] Imm Gran Pct Auto 0.3 0.0 - 0.4 % [facility] Lymphocytes Percent Auto 17.1(L) 20 - 40 % [facility] Monocytes Percent Auto 4.9 2 - 11 % [facility] Eosinophils Percent Auto 0.3 0 - 4 % [facility] Basophils Percent Auto 0.3 0 - 2 % [facility] NRBC Pct Auto 0.0 0.0 - 0.2 /100WBC [facility] Neutrophils Absolute Auto 9.8(H) 2.0 - 8.3 x10*3/uL [facility] Imm Gran Abs Auto 0.04(H) 0.00 - 0.03 X10*3/uL [facility] Lymphocytes Absolute Auto 2.2 1.2 - 4.9 X10*3/uL [facility] Monocytes Absolute Auto 0.6 0.1 - 1.2 X10*3/uL [facility] Eosinophils Absolute Auto 0.0 0.0 - 0.4 X10*3/uL [facility] Basophils Absolute Auto 0.0 0.0 - 0.2 X10*3/uL [facility] NRBC Abs Auto 0.000 0.0 - 0.012 X10*3/uL [facility] 09/17/2024 10:3 7 AM EST 09/17/2024 10:44 AM EST us Generic External Data Provider LAB BLOOD ORDERAB LES Final Result [facility] [address] [place] [phone] documented in this encounter Visit Diagnoses Not on filedocumented in this encounter Additional Health Concerns Assessment Noted Time PHQ-9 Depression Total Score: 6 03/13/20 24 8:49 AM EDT documented as of this encounter Care Teams Cs Associate Relationship Specialty Start Date End Date Janet Rivera FNP [address] [place] [phone] PCP - General Family Medicine 03/18/22 documented as of this encounter
--- OUTSIDE RECORDS SUMMARY | 2024-09-17 14:31 | XMS_ITS | Clinical Summary ---
Author Organization [employer] Address [address] [facility] [address] [place] [address] Care Team Providers Care Newspaper Editor Name Role Phone Janet Rivera [facility] Primary Care Provider [phone] Allergies Active Allergy Reactions Criticality Noted Date Comments Lisinopril Cough 03/07/2022 Penicillins Hives 01/05/2024 Medications acetaminophen (Tylenol) 500 MG tablet Take 1 tablet by mouth every 12 (twelve) hours. 1 Active albuterol 108 (90 Base) MCG/ACT inhaler Inhale 2 puffs every 4 (four) hours. 1 Active cholecalciferol (Vitamin D-3) 50 MCG (2000 UT) capsule Take 1 capsule by mouth at bed time. 1 Active glucose blood (FREESTYLE LITE) test strip Use two strips daily to check blood sugar levels 1 Active ibuprofen (Advil) 200 MG tablet Take 1 tablet by mouth every 6 (six) hours. Active ascorbic acid (Vitamin C) 500 MG tablet Active Spacer/Aero-Holdi ng Chambers (Pro Comfort Spacer Adult) miscIndications:S hortness of breath For use with albuterol inhaler 1 each 3 Active amLODIPine (Norvasc) 10 MG tabletIndications :Essential hypertension Take 1 tablet (10 mg) by mouth Once per day. 90 tablet 3 4 03/13/20 25 Active chlorthalidone (Hygroton) 25 MG tabletIndications :Essential hypertension Take 0.5 tablets (12.5 mg) by mouth Once per day. 45 tablet 3 4 03/13/20 25 Active albuterol 108 (90 Base) MCG/ACT inhalerIndication s:Chronic obstructive pulmonary disease, unspecified COPD type (CMS/HCC) Inhale 2 puffs every 6 (six) hours if needed for wheezing. 18 g 11 4 03/13/20 25 Active cetirizine (ZyrTEC) 10 MG tabletIndications :Chronic obstructive pulmonary disease, unspecified COPD type (CMS/HCC) Take 1 tablet (10 mg) by mouth Once per day. 30 tablet 11 4 03/13/20 25 Active Umeclidinium-Edda nterol (Anoro Ellipta) 62.5-25 MCG/ACT aerosol powderIndications :Chronic obstructive pulmonary disease, unspecified COPD type (CMS/HCC) Inhale 1 Inhalation Once per day. 1 each 3 4 Active Active Problems Problem Noted Date Diagnosed Date Healthcare maintenance 10/09/2022 Overview (10/09/2022): Mammo: 02/2021 Birads 1 neg Pap: 02/2022 NIL, HPV neg, through PCP C-scope: Cologuard ordered 2021, pt needs to complete BMD: Routine age 63 HCV Neg 08/2022 HIV Screen: Neg 08/2022 Vision: Referred to [facility] Eye care Assessment & Plan (10/09/2022 9:30 PM EDT): ?? Mammogram ordered ?? Patient will complete cologuard kit at home ?? Accepts flu shot today Essential hypertension 06/15/2022 Overview (10/09/2022): ?? Amlodipine 10mg daily Maintenance: BMP: 08/2022 Lipid Panel: 08/2022 ASCVD Risk: 4.7% - Aerobic exercise to reduce BP. Initial goal of 30 min walk 3-5x/week. Increase as tolerated. - low-sodium diet (goal: <2g/day) and heart healthy diet such as DASH to reduce BP and prevent ASCVD. - Home BP monitoring 1-2 x day with goal of <140/90. - Seek immediate medical attention for chest pain, palpitations, SOB, syncope, or sudden changes in mental status. - Do not change or discontinue current prescriptions without first consulting health care provider Assessment & Plan (10/09/2022 9:29 PM EDT): ?? START chlorthalidone 12.5mg daily ?? Continue amlodipine 10mg ?? RN BP check 2 weeks with repeat BMP Hypercholesterolemia 06/15/2022 COPD (chronic obstructive pulmonary disease) Overview (10/09/2022): ?? Unclear if asthma versus COPD ?? Currently on Spiriva and albuterol Prediabetes 06/15/2022 Vitamin D deficiency 06/15/2022 Encounters Date Type Department Care Team Description 09/17/2024 Orders Only GENERIC EXTERNAL DATA DEPARTMENT Provider, Generic External Data from Last 3 Months Immunizations Name Administration Dates Next Due Influenza Injectable Quadriv alant Preservative Free IIV4 MDCK 04/24/2020 Influenza injectable quadrivalent preservative f ree 10/06/2022,05/16/2021 Naima SARS-CoV-2 Vaccination 10/31/2020 Moderna Covid-19 Vaccine 12+ 02/18/2022,08/07/19 22 Pneumococcal Conjugate PCV 20 03/13/2024 Tdap 07/08/2021 Zoster, Recombinant 09/04/2022,03/25/2022 Family History Medical History Relation Name Comments Heart disease Brother Breast cancer Sister Colon cancer Neg Hx Relation Name Status Comments Brother Sister Social History Tobacco Use Types Packs/Day Years Used Date Smoking Tobacco: Former Cigarettes Smokeless Tobacco: Never Tobacco Cessation:Counseling Given: Not Answered Alcohol Use Standard Drinks/Week Comments Never 0 [...] Orientation Straight 05/23/2022 10 :15 AM EDT Last Filed Vital Signs Vital Sign Reading Time Taken Comments Blood Pressure 157/84 03/13/2024 8:47 AM EDT Pulse 106 03/13/2024 8:47 AM EDT Temperature 36.4 ??C (97.5 ??F) 03/13/2024 8:47 AM ED T Respiratory Rate 18 03/13/2024 8:47 AM EDT Oxygen Saturation 97% 03/13/2024 8:47 AM EDT Inhaled Oxygen Concentration - - Weight 88 kg (194 lb) 03/13/2024 8:47 AM EDT Height 160 cm (5' 3 ) 03/13/2024 8:47 AM EDT Body Mass Index 34.37 03/13/2024 8:47 AM EDT Plan of Treatment Health Maintenance Due Date Last Done Comments CT Colonography 1965 Colonoscopy 1965 Colorectal Cancer Screening 1965 FIT DNA/Cologuard 1965 FIT 1965 FOBT 1965 Sigmoidoscopy 1965 Alcohol/Substance Use Screening 1975 Diabetes: Hemoglobin A1C 11/26/2021 11/26/2020 Mammogram 03/08/2023 03/08/2021, 03/08/2021 RSV Patients and Patients Aged 60 years or older (1 - Risk 60-74 years 1-dose series) 2023 COVID-19 Vaccine (4 - 2023-2 5 season) 2024 02/18/2022, 08/07/2021, 10/31/2020 Influenza Vaccine (#1) 2024 , 05/16/2021, 04/24/2020 Pap Smear 02/18/2025 02/18/2022 Depression Screening 03/13/2025 03/13/2024, 03/13/2024 SDOH Screening 03/13/2025 03/13/2024 Tobacco Screening 03/14/2025 03/14/2024 Cervical Cancer Screening 02/18/2027 HPV/Cotest 02/18/2027 02/18/2022 Lipid Panel 09/08/2027 09/08/2022, 11/26/2020 DTaP/Tdap/Td Vaccines (2 - T d or Tdap) 07/08/2031 07/08/2021 Zoster Vaccines Completed 09/04/2022, 03/25/2022 HIV Screening Completed 09/08/2022 Hepatitis C Screening Completed 09/08/2022 , 11/26/2020 Pneumococcal Vaccine: 50+ Years Completed 03/13/2024 HIB Vaccines Aged Out No longer eligi ble based on patient's age to complete this topic HPV Vaccines Aged Out No longer eligi ble based on patient's age to complete this topic Hepatitis A Vaccines Aged Out No long er eligible based on patient's age to complete this topic Hepatitis B Vaccines Aged Out No long er eligible based on patient's age to complete this topic IPV Vaccines Aged Out No longer eligi ble based on patient's age to complete this topic Meningococcal Vaccine Aged Out No norma yanick eligible based on patient's age to complete this topic RSV under 20 months Aged Out No longe r eligible based on patient's age to complete this topic Rotavirus Vaccines Aged Out No longer eligible based on patient's age to complete this topic Procedures Procedure Name Priority Date/Time Associated Diagnosis Comments HIGH SENSITIVITY TROPONIN I Routine 09/17/2024 12:44 PM EST CBC Routine 09/17/2024 12:44 PM EST DRUG MONITOR, PANEL 1, SCREEN, URINE Routine 09/17/2024 11:45 AM EST URINALYSIS WITH REFLEX MICROSCOPIC Routine 09/17/2024 11:45 AM EST XR CHEST 1 VIEW Routine 09/17/2024 10:40 AM EST HIGH SENSITIVITY TROPONIN I Routine 09/17/2024 10:37 AM EST MAGNESIUM Routine 09/17/2024 10:37 AM EST COMPREHENSIVE METABOLIC PANEL Routine 09/17/2024 10:37 AM EST PROTHROMBIN TIME-INR Routine 09/17/2024 10:37 AM EST CBC WITH AUTO DIFFERENTIAL Routine 09/17/2024 10:37 AM EST HEPATITIS C AB W/REFL TO HCV RNA, QN, PCR Routine 09/08/2022 11:11 AM EST Healthcare maintenance HIV 1/2 ANTIGEN/ANTIBODY, FOURTH GENERATION W/RFL Routine 09/08/2022 11:11 AM EST Healthcare maintenance LIPID PANEL, STANDARD Routine 09/08/2022 11:11 AM EST Essential hypertension THINPREP IMAGING PAP AND HPV MRNA E6/E7 WITH REFLEX TO HPV 16,18/45 Routine 02/18/2022 3:07 PM EDT HM MAMMOGRAPHY Routine 03/08/2021 HEMOGLOBIN A1C Routine 11/26/2020 9:12 AM EDT from Last 3 Months or Most Recently Relevant to Health Maintenance Results * (ABNORMAL) High Sensitivity Troponin I (09/17/2024 12:44 PM EST) Only the most recent of2 resultswithin the time period is included. Pathologist [facility] TROPONIN I HIGH SENSITIVITY 1,279.2(H H) <3.5 - 17.0 ng/L [facility] Comment:Critical value for T ROPONIN: Results called to and readback by: LOGAN Person calling: [email or web address] Date: 09-17-24 Time:1316The [place] high sensitivity Troponin-I results should beused in conjunction with other diagnostic information suchas ECG, clinical observations and information, and patientsymptoms to aid in the diagnosis of [place]. 09/17/2024 12:4 4 PM EST 09/17/2024 12:46 PM EST us Generic External Data Provider LAB BLOOD ORDERAB LES Final Result [facility] [address] [place] [phone] * CBC (09/17/2024 12:44 PM EST) Pathologist [facility] White Blood Count 5.1 4.8 - 10.8 X10*3/uL [facility] Red Blood Count 4.89 4.20 - 5.50 X10*6/uL [facility] Hemoglobin 14.7 12.0 - 16.0 g/dl [facility] Hematocrit 43.9 37.0 - 47.0 % [facility] Mean Corpuscular Volume 89.8 80.0 - 98.0 fL [facility] Mean Corpuscular Hemoglobin 30.1 27.0 - 33.0 pg [facility] Mean Corpuscular HGB Conc 33.5 31.0 - 35.0 g/dl [facility] Red Cell Distribution Width 12.7 11.0 - 16.0 % [facility] Platelet Count 187 160 - 400 X10*3/uL [facility] Mean Platelet Volume 9.7 9.4 - 12.3 fL [facility] NRBC Pct Auto 0.0 0.0 - 0.2 /100WBC [facility] NRBC Abs Auto 0.000 0.0 - 0.012 X10*3/uL [facility] 09/17/2024 12:4 4 PM EST 09/17/2024 12:46 PM EST us Generic External Data Provider LAB BLOOD ORDERAB LES Final Result [facility] [address] [place] [address] [phone] * Drug Monitoring, Panel 1, Screen, Urine (09/17/2024 11:45 AM EST) Opiate Screen Urine Not Detected Not Detect [facility] Comment:Opiate cut-off is 30 0 ng/mL.Positive results are unconfirmed and should not be used fornon-medical purposes. Barbiturates, Urine Not Detected Not Detect [facility] Comment:Barbiturate cut-off is 200 ng/mL.Positive results are unconfirmed and should not be used fornon-medical purposes. Phencyclidine Screen Urine Not Detected Not Detect [facility] Comment:Phencyclidine cut-of f is 25 ng/mL.Positive results are unconfirmed and should not be used fornon-medical purposes. Amphetamine Screen Urine Not Detected Not Detect [facility] Comment:Amphetamine cut-off is 1000 ng/mL.Positive results are unconfirmed and should not be used fornon-medical purposes. Benzodiazepines Screen Urine Not Detected Not Detect [facility] Comment:Benzodiazepine cut-o ff is 200 ng/mL.Positive results are unconfirmed and should not be used fornon-medical purposes. Cocaine Screen Urine Not Detected Not Detect [facility] Comment:Cocaine cut-off is 3 00 ng/mL.Positive results are unconfirmed and should not be used fornon-medical purposes. Cannabinoid Screen Urine Not Detected Not Detect [facility] Comment:Cannabinoid cut-off is 50 ng/mL.Positive results are unconfirmed and should not be used fornon-medical purposes. Methadone Screen, Urine Not Detected Not Detect ng/mL [facility] Comment:Methadone cut-off is 300 ng/mL.Positive results are unconfirmed and should not be used fornon-medical purposes. FENTANYL URINE Not Detected Not Detect [facility] Comment:Fentanyl cut-off is 1 ng/mL.Positive results are unconfirmed and should not be used fornon-medical purposes. Oxycodone Urine Screen Not Detected Not Detect ng/mL [facility] Comment:Oxycodone cut-off is 100 ng/mL.Positive results are unconfirmed and should not be used fornon-medical purposes. Buprenorphine Screen Not Detected Not Detect ng/mL [facility] Comment:Buprenorphine cut-of f is 5 ng/mL.Positive results are unconfirmed and should not be used fornon-medical purposes. 09/17/2024 11:4 5 AM EST 09/17/2024 11:50 AM EST us Generic External Data Provider LAB URINE ORDERAB LES Final Result Performing Organization Address [facility] Co de Phone Number [facility] [address] [place] [phone] * Urinalysis w/reflex microscopic (09/17/2024 11:45 AM EST) Color Urine Yellow [facility] Appearance Urine Clear [facility] PH 6.0 5.0 - 9.0 [facility] Glucose Urine UA Negative Negative mg/dL [facility] Urine Blood Negative Negative [facility] Specific [place] - Urine 1.020 1.005 - 1.025 [facility] Urine Protein Negative Neg-Trace mg/dL [facility] Urine Ketones Negative Negative mg/dL [facility] Nitrite Urine Negative Negative [facility] Leukocyte Esterase Urine Negative Negative [facility] 09/17/2024 11:4 5 AM EST 09/17/2024 11:50 AM EST Narrative [facility] - 09/17/2024 11:56 AM EST [id number], Clean Catch us Generic External Data Provider LAB URINE ORDERAB LES Final Result Performing Organization Address City/[facility] Co de Phone Number [facility] [address] [place] [phone] * XR Chest 1 View (09/17/2024 10:40 AM EST) Anatomical Region Laterality Modality Chest Radiographic Sejal ging 09/17/2024 10:4 0 AM EST Narrative 09/17/2024 10:53 AM EST ? [facility] ?[address] ?[place] [address] ?XRay Report ? Signed ? Patient: Corahenriquee,Kayli L ?MR#: [id number] ?? [id number] ? : 1965 ?Acct:[id number] ? Age/Sex: 59 / F ?ADM Date: 09/17/24 ? Loc: HO.ED ? Attending Dr: ? Ordering Physician: Generic ED Physician ?? Date of Service: 09/17/24 ?? Procedure(s): XR chest 1V ?? Accession Number(s): [id number] ? cc: Generic ED Physician; [facility] ? EXAMINATION: ??XR CHEST 1 VIEW ? HISTORY: cp ? COMPARISON: Comparison is made with the prior examination dated ?? 11/30/2022. ? FINDINGS: ??A single AP portable view of the chest performed at ?? submitted. The lungs are expanded and clear. ??There is no pleural ?? effusion, pneumothorax, or pulmonary vascular congestion. ??The heart is ?? normal in size. ??The bones are intact. ? XR/XR chest 1V ?? IMPRESSION: ?? No acute cardiopulmonary abnormality. ? Electronically signed by: ??Jose D Yeh MD ??09/17/2024 10:50 AM EST ? Dictated By: ?Jose D Yeh MD ? Signed By: ?<Electronically signed by Jose D Yeh MD in OV> ?09/17/24 1050 ? DD/ 1040 ? TD/TT: 09/17/24 1042 ? Counter Waiter: ? Procedure Note Alvaro, Willis - 09/17/2024 [facility] [address] [place] [address] XRay Report Signed Patient: Kayli White LMR#: [id number] : 1965Acct:[id number] Age/Sex: 59 / FADM Date: 09/17/24 Loc: HO.ED Attending Dr: Ordering Physician: Generic ED Physician Date of Service: 09/17/24 Procedure(s): XR chest 1V Accession Number(s): [id number] cc: Generic ED Physician; [facility] LEAN ENGINEER EXAMINATION: XR CHEST 1 VIEW HISTORY: cp [...] D Yeh MD 09/17/2024 10:50 AM EST RP Dictated By: Jose D Yeh MD Signed By: <Electronically signed by Jose D Yeh MD in OV> 09/17/24 1050 DD/ 1040 TD/TT: 09/17/24 1042 Counter Waiter: [facility] External Provider IMG XR PROCEDURES Final Result * (ABNORMAL) CBC auto differential (09/17/2024 10:37 AM EST) White Blood Count 12.7(H) 4.8 - 10.8 X10*3/uL [facility] Red Blood Count 5.15 4.20 - 5.50 X10*6/uL [facility] Hemoglobin 15.5 12.0 - 16.0 g/dl [facility] Hematocrit 45.6 37.0 - 47.0 % [facility] Mean Corpuscular Volume 88.5 80.0 - 98.0 fL [facility] Mean Corpuscular Hemoglobin 30.1 27.0 - 33.0 pg [facility] Mean Corpuscular HGB Conc 34.0 31.0 - 35.0 g/dl [facility] Red Cell Distribution Width 12.7 11.0 - 16.0 % [facility] Platelet Count 296 160 - 400 X10*3/uL [facility] Mean Platelet Volume 9.4 9.4 - 12.3 fL [facility] Neutrophils Percent Auto 77.1(H) 45 - 73 % [facility] Imm Gran Pct Auto 0.3 0.0 - 0.4 % [facility] Lymphocytes Percent Auto 17.1(L) 20 - 40 % [facility] Monocytes Percent Auto 4.9 2 - 11 % [facility] Eosinophils Percent Auto 0.3 0 - 4 % [facility] Basophils Percent Auto 0.3 0 - 2 % [facility] NRBC Pct Auto 0.0 0.0 - 0.2 /100WBC [facility] Neutrophils Absolute Auto 9.8(H) 2.0 - 8.3 x10*3/uL [facility] Imm Gran Abs Auto 0.04(H) 0.00 - 0.03 X10*3/uL [facility] Lymphocytes Absolute Auto 2.2 1.2 - 4.9 X10*3/uL [facility] Monocytes Absolute Auto 0.6 0.1 - 1.2 X10*3/uL [facility] Eosinophils Absolute Auto 0.0 0.0 - 0.4 X10*3/uL [facility] Basophils Absolute Auto 0.0 0.0 - 0.2 X10*3/uL [facility] NRBC Abs Auto 0.000 0.0 - 0.012 X10*3/uL [facility] 09/17/2024 10:3 7 AM EST 09/17/2024 10:44 AM EST us Generic External Data Provider LAB BLOOD ORDERAB LES Final Result [facility] [address] [place] [phone] * Prothrombin Time-INR (09/17/2024 10:37 AM EST) Prothrombin Time 11.3 10.9 - 12.4 SEC [facility] INTERNATIONAL NORM RATIO 1.0 0.9 - 1.1 [facility] Comment:INTERNATIONAL NORMAL IZED RATIO (INR) REFERENCE [...] ORDERAB LES Final Result Performing Organization Address [facility]/ZIP Co de Phone Number [facility] [address] [place] [phone] * Magnesium (09/17/2024 10:37 AM EST) Pathologist [facility] Magnesium 1.7 1.6 - 2.6 mg/dL [facility] 09/17/2024 10:3 7 AM EST 09/17/2024 10:44 AM EST Generic External Data Provider LAB BLOOD ORDERAB LES Final Result Performing Organization Address [facility] de Phone Number [facility] [address] [place] [phone] * (ABNORMAL) Comprehensive Metabolic Panel (09/17/2024 10:37 AM EST) Sodium 136 135 - 145 mmol/L [facility] Potassium 3.7 3.3 - 5.1 mmol/L [facility] Chloride 101 96 - 108 mmol/L [facility] Carbon Dioxide 24 22 - 29 mmol/L [facility] Anion Gap 15 12 - 20 [facility] Urea Nitrogen (BUN) 11 9 - 16 mg/dL [facility] Creatinine, Serum 0.71 0.5 - 1.4 mg/dL [facility] Creatinine Clr Calc Pharmacy 87.7 [facility] Comment:Provided height and weight: 160.02 cm,88.451 kg.eGFR (calculated from the MDRD study equation) and eCrCl(calculated from the Cockcroft-Gault equation) are based ondifferent parameters and may not yield comparable results.If eCrCl result is absurd, please check patient'sheight/weight. Estimated Glomerular Filt Rate >60 [facility] Comment:Chronic Kidney Disea se: Estimated GFR < 60 mL/min/1.37c0Wmubja Kidney Disease: Estimated GFR < 15 mL/min/1.73m2 Glucose 167(H) 60 - 115 mg/dL [facility] Calcium 10.8(H) 8.4 - 10.2 mg/dL [facility] Bilirubin, Total 0.6 0.0 - 1.0 mg/dL [facility] Aspartate Amino Transferase 48(H) 5 - 31 U/L [facility] Alanine Aminotransferase 27 0 - 31 U/L [facility] Total Protein 8.6(H) 6.5 - 8.0 g/dL [facility] Albumin Level 4.6 3.5 - 5.0 g/dL [facility] Alkaline Phosphatase 84 39 - 117 U/L [facility] 09/17/2024 10:3 7 AM EST 09/17/2024 10:44 AM EST us Generic External Data Provider LAB BLOOD ORDERAB LES Final Result [facility] [address] [place] [phone] * Hepatitis C Antibody with Reflex to HCV, RNA, Quantitative, Real-Time PCR (09/08/2022 11:11 AM EST) Hepatitis C Antibody NON-REACT HUANG NON-REACT HUANG [facility] [place] [facility] Index 0.02 <1.00 [facility] [place] [facility] Comment: HCV antibody was non-reactive. There is no laboratory evidence of HCV infection. In most cases, no further action is required. However, if recent HCV exposure is suspected, a test for HCV RNA (test code 96218) is suggested. For additional information please refer to http://Equiom.Folica/faq/MDI19g3 (This link is being provided for informational/ educational purposes only.) Blood Venous blood specimen / Unknown 09/08/2022 11:11 AM EST 09/08/2022 11:11 AM EST Narrative [facility] - 09/09/2022 8:03 AM EST FASTING:YES FASTING: YES [facility] LAB BLOOD ORDERABLES Final Re sult [facility] [address] [facility] [place] [phone] [facility] [place] [employer] [address] [facility], ([address]) [place] [phone] * HIV-1/2 Antigen and Antibodies, Fourth Generation, with Reflexes (09/08/2022 11:11 AM EST) Pathologist [facility] HIV Antigen/Antibody, 4th Generation NON-REAC TIVE NON-REAC TIVE [facility] [place] [facility] Comment: HIV-1 antigen and HIV-1/HIV-2 antibodies were not detected. There is no laboratory evidence of HIV infection. PLEASE NOTE: This information has been disclosed to you from records whose confidentiality may be protected by state law. ??If your state requires such protection, then the state law prohibits you from making any further disclosure of the information without the specific written consent of the person to whom it pertains, or as otherwise permitted by law. A general authorization for the release of medical or other information is NOT sufficient for this purpose. ?? For additional information please refer to http://Equiom.Folica/faq/GFN711 (This link is being provided for informational/ educational purposes only.) The performance of this assay has not been clinically validated in patients less than 2 years old. Blood Venous blood specimen / Unknown 09/08/2022 11:11 AM EST 09/08/2022 11:11 AM EST Narrative [facility] - 09/09/2022 8:03 AM EST FASTING:YES FASTING: YES [facility] LAB BLOOD ORDERABLES Final Re sult [facility] [address] [facility] [place] [address] [facility] [place] [employer] [address], ([address]) [place] [phone] * (ABNORMAL) Lipid Panel, Standard (09/08/2022 11:11 AM EST) Cholesterol, Total 219(H) <200 mg/dL [facility] [place] [facility] HDL Cholesterol 73 > OR = 50 mg/dL [facility] [place] [facility] Triglycerides 128 <150 mg/dL [facility] [place] [facility] LDL Cholesterol 122(H) mg/dL (calc) [facility] [place] [facility] Comment: Reference range: <100 Desirable range <100 mg/dL for primary prevention; ?? <70 mg/dL for patients with CHD or diabetic patients with > or = 2 CHD risk factors. LDL-C is now calculated using the Jigar-Villalpando calculation, which is a validated novel method providing better accuracy than the Friedewald equation in the estimation of LDL-C. Jigar SS et al. LESLI. 2013;310(19): 4413-1453 (http://education.Acusphere/faq/IKM199) Chol/HDLC Ratio 3.0 <5.0 (calc) [employer] [place] [facility] Non-HDL Cholesterol 146(H) <130 mg/dL (calc) [employer] [place] [employer] Comment: For patients with diabetes plus 1 major ASCVD risk factor, treating to a non-HDL-C goal of <100 mg/dL (LDL-C of <70 mg/dL) is considered a therapeutic option. Blood Venous blood specimen / Unknown 09/08/2022 11:11 AM EST 09/08/2022 11:11 AM EST Narrative [facility] - 09/09/2022 8:03 AM EST FASTING:YES FASTING: YES us Janet [place] LEAN ENGINEER LAB BLOOD ORDERABLES Final Re sult [facility] [address] [facility] [place] [address] [employer] [facility] [address] [facility], ([address]) [place] [address] * THINPREP TIS PAP AND HPV mRNA E6/E7 WITH REFLEX TO HPV 16,18/45 (02/18/2022 3:07 PM EDT) Clinical Information: None given [facility] COMMENT SEE COMMENT [facility] Comment: EXPLANATORY NOTE: ? The Pap is a screening test for cervical cancer. It is ?? not a diagnostic test and is subject to false negative ?? and false positive results. It is most reliable when a ?? satisfactory sample, regularly obtained, is submitted ?? with relevant clinical findings and history, and when ?? the Pap result is evaluated along with historic and ?? current clinical information. ?? COMMENT: This Pap test has been evaluated with computer assisted technology. [facility] Cytotechnologis t: SEE COMMENT [facility] Comment: KN, CT(ASCP) CT screening location: [address] ??[address] HPV nRNA E6/E7 Not Detected Not Detected [facility] Comment: Methodology: Asset Protection Officer-Mediated Amplification This assay detects E6/E7 viral messenger RNA (mRNA) from 14 high-risk HPV types (16,18,31,33,35,39,45,51,52,56,58,59,66,68). ? Cervical sources are required for HPV testing. If a vaginal source from a patient who has had a total hysterectomy with removal of cervix was ?? submitted, please contact the testing laboratory for alternative testing options. ?? For additional information, please refer to http://education.Placeling.Iptune/faq/VMY230e4 (This link if provided for information/ educational purposes only.) Interpretation/ Result: Negative for intraepithelial lesion or malignancy. [facility] LMP: NONE GIVEN [facility] Prev. BX: NONE GIVEN [facility] Prev. PAP: NONE GIVEN [facility] SOURCE: None given [facility] Statement Of Adequacy: SEE COMMENT [facility] Comment: Satisfactory for evaluation. Endocervical/transformation zone component present. Age and/or menstrual status not provided 02/18/2022 3:07 PM EDT Stephanie Tafoya NP LAB PATHOLOGY ORDERABLES Final Result Performing Organization Address [facility] de Phone Number [facility] [address] * Mammography (03/08/2021) Mammogram BI-RADS 1: Negative Anatomical Region Laterality Modality Other Historical Provider HEALTH MAINTENANCE Final Result * (ABNORMAL) HEMOGLOBIN A1c (11/26/2020 9:12 AM EDT) Hemoglobin A1c 6.1(H) <5.7 % of total Hgb [facility] Comment: For someone without known diabetes, a hemoglobin ?? A1c value between 5.7% and 6.4% is consistent with prediabetes and should be confirmed with a ?? follow-up test. ?? For someone with known diabetes, a value <7% indicates that their diabetes is well controlled. A1c targets should be individualized based on duration of diabetes, age, comorbid conditions, and other considerations. ?? This assay result is consistent with an increased risk of diabetes. ?? Currently, no consensus exists regarding use of hemoglobin A1c for diagnosis of diabetes for children. ?? 11/26/2020 9:12 AM EDT Historical Provider LAB BLOOD ORDERABLES Eufemia l Result Performing Organization Address [facility] Co de Phone Number [facility] [address] from Last 3 Months or Most Recently Relevant to Health Maintenance Insurance [facility] C3 HSN FULL Care Teams Newspaper Editor Relationship Specialty Start Date End Date Janet Rivera FNP [address] [place] [address] PCP - General Family Medicine 03/18/22
--- OUTSIDE RECORDS SUMMARY | 2024-09-17 14:31 | XMS_ITS | Encounter Summary ---
Author Organization [employer] Address [address] [facility] [address] [place] [address] Care Team Providers Care Photograph Enlarger Name Role Phone Miguel Janet BANDOLEER PACKER Primary Care Provider [phone] Encounter Details Date Type Department Care Team (Late st Contact Info) Description 06/20/2023 [facility] [address] [place] [address] Alyssa Coleman Social History Tobacco Use Types Packs/Day Years Used Date Smoking Tobacco: Former Cigarettes Smokeless Tobacco: Never Alcohol Use Standard Drinks/Week Comments Never 0 (1 standard drink = 0.6 oz pur e alcohol) Depression Answer Date Recorded Patient Health Questionnaire-9 Score 0 09/08/2022 Housing Stability Answer Date Recorded What is your housing situation today? I have guido dickey 05/08/[address] you li ve. Do you have problems with any of the following? None of the above 05/08/2023 Food Insecurity Answer Date Recorded Within the past 12 months, y ou worried that your food would run out before you got money to buy more: Never True 05/08/2023 Within the past 12 months,th e food you bought just didn't last and you didn't have enough money to get more: Never True Transportation Answer Date Recorded In the past 12 months, has l ack of transportation kept you from medical appts, meetings, work or from getting things needed for daily living? No 05/08/2023 Utilities Answer Date Recorded In the past 12 months, has t he electric, gas, oil or water company threatened to shut off services in your home? No 05/08/2023 Depression Answer Date Recorded Patient Health Questionnaire-2 Score 0 09/08/2022 Comments Unknown Sex and Gender Information Value Date Recorded Sex Assigned at Female 05/23/2022 10:15 AM EDT Legal Sex Female 10:15 AM EDT Gender Identity Female 05/23/2022 10:15 AM EDT Sexual Orientation Straight 05/23/2022 10 :15 AM EDT documented as of this encounter Plan of Treatment Not on file documented as of this encounter Visit Diagnoses Not on filedocumented in this encounter Additional Health Concerns Assessment Noted Time PHQ-9 Depression Total Score: 0 09/08/19 23 10:12 AM EST documented as of this encounter Care Teams Photograph Enlarger Relationship Specialty Start Date End Date Janet Rivera FNP [address] [place] [id number] PCP - General Family Medicine 03/18/22 documented as of this encounter
== END 2024-09-17 15:13 | disposition short-term general hospital (02) ==
PROVIDERS: Emergency Provider Emergency Medicine; PCP Registered Nurse
DX: I21.4 Non-ST elevation (NSTEMI) myocardial infarction (principal); I24.9 Acute ischemic heart disease, unspecified; R07.89 Other chest pain; Z51.81 Encounter for therapeutic drug level monitoring; Z79.899 Other long term (current) drug therapy
CPT/HCPCS: 36415; 71045; 80053; 80307; 81003; 83735; 84484; 85025; 85027; 85610; 85730; 93005; 96374; 99285; J1644

== ENCOUNTER → 2024-09-17 10:40 | Outpatient (BNV) | payer MEDICAID, SELFPAY | PROVIDERS: PCP Registered Nurse; Visit Provider Radiology Diagnostic Radiology | DX: R07.9 Chest pain, unspecified (principal) | CPT/HCPCS: 71045 ==

== ENCOUNTER → 2024-09-17 11:48 | Outpatient (BNV) | payer MEDICAID, SELFPAY | PROVIDERS: Emergency Provider Emergency Medicine; PCP Registered Nurse; Visit Provider Internal Medicine | DX: I21.4 Non-ST elevation (NSTEMI) myocardial infarction (principal) | CPT/HCPCS: 93010; 99285 ==

== ENCOUNTER 2024-12-09 10:51 | Outpatient (REF) | payer OTHER, SELFPAY ==
[2024-12-09 11:06] LABS: MANUAL DIFF FLAG NO
--- OUTSIDE RECORDS SUMMARY | 2024-12-09 11:29 | XMS_ITS | Encounter Summary ---
Author Organization [facility] Address [address] [place] [address] Care Team Providers Care Booth Cleaner Name Role Phone Janet Rivera Primary Care Provider [phone] Reason for Visit * Reason Onset Date Comments Cardiac Rehab 10/09/2024 Cardiac rehab Encounter Details Date Type Department Care Team (Late st Contact Info) Description 10/09/2024 Telephone [facility] [address] [place] [phone] Yovany Pat MD [address] [place] [address] [address] [place] [address] Cardiac Rehab (Cardiac rehab ) Social History Tobacco Use Types Packs/Day Years Used Date Smoking Tobacco: Never Smokeless Tobacco: Never Alcohol Use Standard Drinks/Week Comments Yes 0 (1 standard drink = 0.6 oz pur e alcohol) occ Comments Unknown Sex and Gender Information Value Date Recorded Sex Assigned at Not on file Legal Sex Female 10:36 AM EST Gender Identity Not on file Sexual Orientation Not on file documented as of this encounter Progress Notes * Sahra Davila MA - 12/05/2024 9:59 AM EDT Spoke with patient and she has agreed to go to [facility] for her blood work per [facility]. Labs have been faxed over to [phone] * Sahra Davila MA - 12/05/2024 9:51 AM EDTAddended by: SAHRA DAVILA on: 12/05/2024 09:51 AM Modules accepted: Orders * Brittany Coleman MA - 12/05/2024 9:37 AM EDT Tanja from [facility] is calling stating the patient has not had any recent labs done and they are requesting updated labs to be drawn and we have to contact the patient ot have these doen and results to be faxed over to [phone] * Sahra Davila MA - 10/10/2024 8:28 AM EDT Paperwork for cardiac rehab has been faxed over to [facility] [phone] Cardiac Rehab will call the patient with a consult appointment. Patient can also reach out to them with any questions at [phone] * Ml Piña - 10/09/2024 3:53 PM EDT [facility] called , Maria Ines, stated that Kayli will need a referral for cardiac rehabilitation. Kayli had tried to call them . Please see office notes . Monique documented in this encounter Plan of Treatment Upcoming Encounters Date Type Department Care Team (Late st Contact Info) Description 12/19/2024 11:00 AM EDT Ancillary Procedure [facility] - [address] [place] [address] Scheduled Orders Name Type Priority Associated Diagnoses Orde r Schedule Basic metabolic panel Lab Routine NSTEMI (non-ST elevated myocardial infarction) (CMS/HCC V24, CMS/HCC V28) 1 Occurrences starting 12/05/2024 until 12/05/2025 Complete blood count Lab Routine NSTEMI (non-ST elevated myocardial infarction) ([facility] V24, [facility] V28) 1 Occurrences starting 12/05/2024 until 12/05/2025 documented as of this encounter Visit Diagnoses Diagnosis NSTEMI (non-ST elevated myocardial infarction) ([facility] V24, [facility] V28)- Primary Acute myocardial infarction, subendocardial infarction, episode of care unspecified documented in this encounter Care Teams Booth Cleaner Relationship Specialty Start Date End Date [facility] [address] [address] PCP - General Family Medicine 10/07/24 documented as of this encounter
--- OUTSIDE RECORDS SUMMARY | 2024-12-09 11:29 | XMS_ITS | Clinical Summary ---
Author Organization [facility] [employer] Address [address] [facility] [place] [address] Phone Care Team Providers Care Patient Relations Representative Name Role Phone [facility] Primary Care Provider [phone] Allergies Active Allergy Reactions Criticality Noted Date Comments Penicillin 10/07/2024 Medications albuterol HFA (PROAIR HFA ; PROVENTIL HFA ; VENTOLIN HFA) 90 mcg/actuation inhaler Inhale 2 puffs by mouth every 6 (six) hours if needed for wheezing. Active ticagrelor (Brilinta) 90 mg tablet Take 1 tablet (90 mg total) by mouth 2 (two) times a day. Active aspirin 81 mg EC tablet Take 1 tablet (81 mg total) by mouth 1 (one) time each day. Active metoprolol succinate (TOPROL-XL) 50 mg 24 hr tablet Take 1 tablet (50 mg total) by mouth 1 (one) time each day. Do not crush or chew. Active atorvastatin (LIPITOR) 80 mg tablet Take 1 tablet (80 mg total) by mouth at bedtime. Active valsartan (DIOVAN) 40 mg tablet Take 1 tablet (40 mg total) by mouth 1 (one) time each day. Active traZODone (DESYREL) 50 mg tablet Take 1 tablet (50 mg total) by mouth at bedtime. Active Active Problems Problem Noted Date Diagnosed Date NSTEMI (non-ST elevated myoc ardial infarction) (CMS/HCC V24, CMS/HCC V28) 10/02/2024 Assessment & Plan (10/07/2024 12:06 PM EDT): Status post recent PCI for circumflex stenosis. No ongoing signs or symptoms of coronary insufficiency. Continue low-dose of aspirin definitely. Continue Brilinta for 1 year post PCI at minimum. We will address this at her 1 year follow-up. Per mildly reduced ejection fraction, suspect stunning in context of acute coronary occlusion. Continue with metoprolol and losartan. Will reassess ejection fraction and regional wall motion with echocardiogram in around 6 to 8 weeks following MO. I provided the contact information for cardiac rehabilitation at [facility] which is close to her home. I will plan to her return to work paperwork and leave paperwork with an estimated return to work date of 11/20/2024 I will contact her if there are any concerns raised by her repeat echocardiogram. Otherwise we will plan for routine clinical follow-up in around 1 year. Hypertension 10/02/2024 Encounters Date Type Department Care Team Description 10/18/2024 Telephone [facility] [address] [facility] [place] [address] Remy Luna MD Forms/questionnaires (FMLA ) 10/09/2024 [address] [facility] [address] [facility] [address] [place] [address] Remy Luna MD Cardiac Rehab (Cardiac rehab ) 10/09/2024 Telephone [facility] [address] [facility] [place] [address] Remy Luna MD paperwork 10/07/2024 11:30 AM EDT Office Visit [facility] [address] [facility] [address] [place] [address] Remy Luna MD NSTEMI (non-ST elevated myocardial infarction) (CMS/HCC V24, CMS/HCC V28) (Primary Dx) from Last 3 Months Surgical History Surgery Date Site/Laterality Comments CARDIAC CATHETERIZATION DONE ON 09/18/2024 AT [facility] Monique ROSENBERG INDICATIONS:NSTEMI. Medical History Medical History Date Comments Prediabetes COPD (chronic obstructive pulmonary disease) (CM S/HCC V24, CMS/HCC V28) Social History Tobacco Use Types Packs/Day Years Used Date Smoking Tobacco: Never Smokeless Tobacco: Never Tobacco Cessation:Counseling Given: Not Answered Alcohol Use Standard Drinks/Week Comments Yes 0 (1 standard drink = 0.6 oz pur e alcohol) occ Comments Unknown Sex and Gender Information Value Date Recorded Sex Assigned at Not on file Legal Sex Female 10:36 AM EST Gender Identity Not on file Sexual Orientation Not on file Obstetrics History Last Filed Vital Signs Vital Sign Reading Time Taken Comments Blood Pressure 128/88 10/07/2024 11:14 AM EDT Pulse 79 10/07/2024 11:14 AM EDT Temperature - - Respiratory Rate - - Oxygen Saturation 95% 10/07/2024 11:14 AM EDT Inhaled Oxygen Concentration - - Weight 79.8 kg (176 lb) 10/07/2024 11:14 AM EDT Height 160 cm (5' 3 ) 10/07/2024 11:14 AM EDT Body Mass Index 31.18 10/07/2024 11:14 AM EDT Plan of Treatment Upcoming Encounters Date Type Department Care Team (Late st Contact Info) Description 12/19/2024 11:00 AM EDT Ancillary Procedure [facility] - [address] [place] [address] Health Maintenance Due Date Last Done Comments Breast Cancer Screening 1965 Cervical Cancer Screening: P ap Smear 1984 RSV Immunization Adult Patients (1 - Risk 60-74 years 1-dose series) 2023 COVID-19 Vaccine (4 - 2023-2 5 season) 2024 02/18/2022, 08/07/2021, 10/31/2020 Colorectal Cancer Screening: Colonoscopy 09/27/2024 Social Influencers of Health Screening 09/27/2024 Depression Screening 03/13/2025 03/13/2024 Influenza Vaccine (Season Ended) 2025 10/06/2022, 05/16/2021, 04/24/2020 Hypertension/CHF/CAD Annual BMP Blood Test 09/17/2025 09/17/2024 Cholesterol Screening (Lipid Panel) 09/08/2027 09/08/2022 DTaP,Tdap,and Td Vaccines (2 - Td or Tdap) 07/08/2031 07/08/2021 Zoster Vaccines Completed 09/04/2022, 03/25/2022 HIV Screening Completed 09/08/2022 Hepatitis C Screening Completed 09/08/2022 Pneumococcal Vaccine: 50+ Years Completed 03/13/2024 Pneumococcal Vaccine: Pediatrics (0 to 5 Years) and At-Risk Patients (6 to 64 Years) Completed 03/13/2024 HIB Vaccines Aged Out No [...] on patient's age to complete this topic MMR Vaccines Aged Out No longer eligi ble based on patient's age to complete this topic Meningococcal ACWY Vaccine Aged Out N o longer eligible based on patient's age to complete this topic Meningococcal B Vaccine Aged Out No l onger eligible based on patient's age to complete this topic RSV Immunization Patients Under 20 months Aged Out No longer eligible b ased on patient's age to complete this topic Varicella Vaccines Aged Out No longer eligible based on patient's age to complete this topic Procedures Procedure Name Priority Date/Time Associated Diagnosis Comments ECG 12-LEAD Routine 10/07/2024 11:24 AM EDT NSTEMI (non-ST elevated myocardial infarction) (CMS/HCC V24, CMS/HCC V28) from Last 3 Months Results * ECG 12 lead (10/07/2024 11:24 AM EDT) Ventricular Rate ECG 79 BPM GEMUSE Atrial Rate 79 BPM GEMUSE P-R Interval 136 ms GEMUSE QRS Duration 116 ms GEMUSE Q-T Interval 404 ms GEMUSE QTc 463 ms GEMUSE P Wave [place] 75 degrees GEMUSE R [place] 88 degrees GEMUSE T [place] 63 degrees GEMUSE ECG Interpretation Sinus rhythm with occasional Premature ventricular complexes Cannot rule out Inferior infarct , age undetermined Abnormal ECG No previous ECGs available Confirmed by REMY LUNA ([id number]) on 10/07/2024 12:09:15 PM GEMUSE 10/07/2024 11:2 4 AM EDT 10/07/2024 12:09 PM EDT us Remy Luna MD ECG ORDERABLES Final Result GEMUSE from Last 3 Months Insurance [facility] MEDICAID ADVANTAGE [address] [place] [address] Care Teams Patient Relations Representative Relationship Specialty Start Date End Date [facility] [address] [facility] [address] [place] [address] PCP - General Family Medicine 10/07/24
[2024-12-09 11:46] LABS: Basophils Percent Auto 0.6 % (0-2); Eosinophils Absolute Auto 0.2 X10*3/uL (0.0-0.4); Eosinophils Percent Auto 2.9 % (0-4); Imm Gran Abs Auto 0.02 X10*3/uL (0.00-0.03); Imm Gran Pct Auto 0.3 % (0.0-0.4); Lymphocytes Absolute Auto 1.6 X10*3/uL (1.2-4.9); Lymphocytes Percent Auto 23.4 % (20-40); Mean Corpuscular HGB Conc 33.3 g/dl (31.0-35.0); Mean Corpuscular Volume 92.9 fL (80.0-98.0); Monocytes Absolute Auto 0.4 X10*3/uL (0.1-1.2); Monocytes Percent Auto 6.3 % (2-11); Neutrophils Absolute Auto 4.7 x10*3/uL (2.0-8.3); Neutrophils Percent Auto 66.5 % (45-73); Platelet Count 253 X10*3/uL (160-400); Red Cell Distribution Width 13.3 % (11.0-16.0)
[2024-12-09 12:13] LABS: Anion Gap 12 (12-20); Blood Urea Nitrogen 18 mg/dL (9-16); Calcium 9.3 mg/dL (8.4-10.2); Carbon Dioxide 24 mmol/L (22-29); Chloride 107 mmol/L (96-108); Estimated Glomerular Filt Rate > 60; Glucose Random 101 mg/dL (60-115); Potassium 4.1 mmol/L (3.3-5.1); Sodium 139 mmol/L (135-145)
== END 2024-12-09 10:52 | disposition home or self-care (01) ==
LOC: HO.LAB 10:51
PROVIDERS: PCP Registered Nurse; Visit Provider Internal Medicine
DX: I21.4 Non-ST elevation (NSTEMI) myocardial infarction (principal)
CPT/HCPCS: 36415; 80048; 85025

== ENCOUNTER 2025-01-29 10:00 | Outpatient (RCR) | payer OTHER, SELFPAY | END 2025-01-30 09:03 | disposition home or self-care (01) | LOC: HO.CR 10:00 | PROVIDERS: PCP Registered Nurse; Visit Provider Psychiatry & Neurology Psychiatry | DX: I21.4 Non-ST elevation (NSTEMI) myocardial infarction (principal); Z98.61 Coronary angioplasty status | CPT/HCPCS: 93798 ==